=== PATIENT | male | born 1970 | race Caucasian/White ===

== ENCOUNTER 2020-02-02 14:14 | Emergency (ER) | payer OTHER, SELFPAY ==
[2020-02-02 14:16] VITALS: BP 147/96; PULSE 70; RESP 18; TEMP 36.7; O2SAT 97; BMI 26.4
--- NOTE | 2020-02-02 14:45 | RAD_ITS ---
STUDY: X-RAY - RIGHT HAND REASON FOR EXAM: Laceration from table saw over second metacarpal. TECHNIQUE: 3 view(s) of the hand. COMPARISON: None. FINDINGS: Normal radiocarpal articulation. Normal distal radioulnar joint. Normal visualized carpal bones. Normal carpal articulations Normal carpometacarpal articulation of the thumb. Normal second through fifth carpometacarpal joints. Normal metacarpi. Normal metacarpophalangeal joint of the thumb. Normal interphalangeal joint of the thumb. Normal proximal and distal phalanges of the thumb. Normal metacarpophalangeal joints of the second through fifth fingers. Normal proximal and distal interphalangeal joints of the second through fifth fingers. Normal phalanges of the second through fifth fingers. The soft tissue structures are unremarkable. RAD/Hand Min 3 Views IMPRESSION: Unremarkable x-ray examination of the right hand without demonstrated fracture or radiopaque foreign body. Electronically Signed: Abraham Cisneros MD at 15:21 EDT Tel , Service support ,
--- NOTE | 2020-02-02 14:46 | ED.VIS.GEN ---
History of Present Illness Chief Complaint: Laceration Informant: Patient Narrative: Patient is a 49-year-old male with a past medical history of hypertension who presents to the emergency department for right hand laceration. He was using a table saw whenever he believes that a piece a wood kicked back and caught his dorsal right hand. The laceration is over the dorsal hand close to his right index finger. Bleeding is controlled prior to arrival in the emergency department. He denies any loss of sensation. No difficulty moving his fingers. No other injury during the event. He does not know when his last tetanus shot was and will update now currently. He is not on any anticoagulation. He has no foreign body sensation in the hand/finger. Patient does write with his left hand but uses his right hand dominantly otherwise. Past Medical History - Allergies and Home Meds Allergies/Adverse Reactions: Allergies No Known Allergies Allergy (Verified 02/02/20 14:18) Primary Care Physician: Corrie Ray NP-C [Primary Care Provider] - Prior records reviewed: Yes Past Medical History: - - Hypertension Surgical History: no surgical history Smoking Status: Never smoker Review of Systems All systems negative except as indicated General: Denies: Chills, Fever, Sweats Cardiovascular: Denies: Chest pain, Palpitations Respiratory: Denies: Dyspnea, Dyspnea on exertion Gastrointestinal: Denies: Abdominal pain, Nausea, Vomiting Musculoskeletal: Denies: Back pain, Extremity Pain Skin: Reports: Wounds - Right hand. Denies: Rash Neurological: Denies: Weakness, Numbness Physical Exam Vital Signs/Narrative: Vital Signs Temp Pulse Resp BP Pulse Ox 02/02/20 14:16 98.1 F 70 18 147/96 H 97 Inital Vital Signs reviewed: Yes General: Well nourished, Well developed Head: Normocephalic, Atraumatic Eyes: Perrl, EOMI ENT: Moist mucous membranes Neck: Supple Cardiovascular: Regular rate, Regular rhythm Respiratory: No distress, CTA bilaterally Abdomen: Soft, Nondistended Skin: Trauma - 5.5 cm laceration to dorsal right hand/index finger. No foreign bodies appreciated. Full active range of motion. Good capillary refill. Sensation intact. Neurological: Alert, Oriented x3, Normal Strength, Normal Sensation Psychological: Normal affect, Normal Mood Diagnostic/Tx/Re-eval - Medical Decision Making Patient presents to the emergency department after sustaining a laceration to the right hand. Will obtain x-ray to evaluate for foreign body/osseous involvement. Patient updated on tetanus while in the emergency department. Will repair with sutures. Procedures Procedure(s): Serration repair: After washing hands sterile gloves were utilized. Wound was cleaned using normal saline and soap. Patient draped in sterile fashion. Wound explored and no foreign bodies appreciated. Area was anesthetized using 1% 5ml lidocaine. Using 5-0 Ethilon 10 interrupted simple sutures were placed. This did come together close. Wound was dressed with antibiotic ointment, nonadherent bandage and wrapped. Patient tolerated procedure well without any complication. ED Disposition - Plan for ED Patient: Disposition: Home or Assisted Living Diagnosis: Hand laceration Instructions: ED Laceration All Closures Referrals: Corrie Ray [employer] [Primary Care Provider] - 5-7 Days Additional Instructions: Need suture removed in 7 to 10 days. Please monitor for signs of infection.
[2020-02-02] MEDS: Diphth,Pertuss(Acell),Tet Vac 0.5 ML Vial IM (14:57)
== END 2020-02-02 16:23 | disposition home or self-care (01) ==
PROVIDERS: Emergency Provider Emergency Medicine; PCP Nurse Practitioner
DX: S61.411A Laceration without foreign body of right hand, initial encounter (principal); Z23 Encounter for immunization; I10 Essential (primary) hypertension; Z79.899 Other long term (current) drug therapy; W26.8XXA Contact with other sharp object(s), not elsewhere classified, initial encounter; Y93.89 Activity, other specified; Y92.89 Other specified places as the place of occurrence of the external cause; Y99.8 Other external cause status
CPT/HCPCS: 12002; 73130; 90715; 99283

== ENCOUNTER → 2020-10-11 07:41 | Outpatient (CLI) | payer OTHER, SELFPAY ==
--- NOTE | 2020-10-11 07:51 | US_ITS ---
STUDY: RENAL ULTRASOUND - COMPLETE REASON FOR EXAM: Male, 49 years old. CKD STAGE G3A/A1,GFR 45-59 AND ALBUMIN CREATINE RATION and lt;30 MG TECHNIQUE: Ultrasound evaluation of the kidneys was performed with real-time and static amezquita-scale imaging. COMPARISON: None. FINDINGS: RIGHT KIDNEY: Normal location of the right kidney, which is normal in size. The right kidney measures 10.7 cm. There is a normal cortex of the right kidney. The renal cortex measures 1 cm. There is no right renal mass or cyst. There are no right renal calculi. There is no right hydronephrosis. DISTAL RIGHT URETER: There is non-visualization of the distal right ureter. There is no demonstrated right ureterovesical junction calculus. There is a visualized right ureteral jet. LEFT KIDNEY: Normal location of the left kidney, which is normal in size. The left kidney measures 12.2 cm. There is a normal cortex of the left kidney. The renal cortex measures 1.4 cm. There is no left renal mass or cyst. There are no left renal calculi. Mild dilatation of the left renal calyces. DISTAL LEFT URETER: There is non-visualization of the distal left ureter. There is no demonstrated left ureterovesical junction calculus. There is a visualized left ureteral jet. BLADDER: The distended urinary bladder has a volume of 197 ml. There is a normal wall thickness of the distended urinary bladder. There is no demonstrated mass within the urinary bladder. There are no demonstrated bladder calculi. US/Kidney and Bladder IMPRESSION: Mild dilatation of the left renal calyces. Normal ultrasound of the urinary bladder. Electronically Signed: Ann-Marie Mcdonald MD at 10:36 EST Tel , Service support ,
== END ==
PROVIDERS: PCP Nurse Practitioner; Referring Provider Nurse Practitioner; Visit Provider Nurse Practitioner
DX: N18.31 Chronic kidney disease, stage 3a (principal)
CPT/HCPCS: 76770

== ENCOUNTER 2021-06-05 18:16 | Inpatient (IN) | payer OTHER, SELFPAY ==
[2021-06-05] VITALS (7 sets, daily range): BP systolic 118–138; BP diastolic 72–87; PULSE 69–87; RESP 16–26; TEMP 35.8–37; O2SAT 92–95; BMI 25.0
--- NOTE | 2021-06-05 18:39 | EKG12_ITS ---
Test Reason : DYSRHYTHMIA Blood Pressure : / mmHG Vent. Rate : 076 BPM Atrial Rate : 076 BPM P-R Int : 150 ms QRS Dur : 096 ms QT Int : 388 ms P-R-T Axes : 039 -06 -09 degrees QTc Int : 436 ms Normal sinus rhythm Normal ECG Confirmed by ROCKY ALLEN, VIRA ([id number]), school photograph editor SHAMAR AGUILERA ([id number]) on 06/10/2021 10:05:53 A M Referred By: MESHA Confirmed By:CR HIDALGO MD
[2021-06-05 18:50] LABS: Absolute Lymphocyte Count 71.77 X10^3/uL (0.83-4.51); Absolute Neutrophil Count 2.4 X10^3/uL (2.0-7.7); Basophil# 0.03 X10^3/uL; Hematocrit 38.4 % (40-54); Hemoglobin 12.4 g/dL (13.0-16.5); Lymphocyte # 71.77 X10^3/ul (0.83-4.51); Lymphocyte % 74.7 % (19-41); Mean Corp Hgb Conc 32.3 g/dL (32-36); Mean Corpuscular Hgb 33.2 pg (27.0-32.0); Mean Corpuscular Volume 102.9 fL (80-94); Monocyte# 21.69 X10^3/uL; Monocyte% 22.6 % (0-10); NRBC Flagged by Analyzer 0 % (0-5); Neutrophil # 2.42 X10^3/uL (2.7-7.7); Neutrophil % 2.5 % (47-70); POSITIVE COUNT YES; POSITIVE DIFFERENTIAL YES; POSITIVE MORPHOLOGY YES; Platelet Count 271 K/mm3 (150-450); RBC Distribution Width CV 12.8 % (11.6-14.6); RBC Distribution Width SD 48.3 fl (35.1-43.9); Red Blood Count 3.73 M/mm3 (4.6-6.2)
[2021-06-05 19:00] LABS: Differential Indicated SCAN CRITERIA MET; White Blood Count 96.1 K/mm3 (4.4-11.0)
[2021-06-05 19:10] LABS: Procalcitonin 0.58 ng/mL (0.00-0.09)
[2021-06-05 19:14] LABS: Lactic Acid 1.9 mmol/L (0.4-1.9)
[2021-06-05 19:15] LABS: Fibrinogen > 900 mg/dl (203-444)
[2021-06-05 19:16] LABS: ALB/GLOB Ratio 0.6 RATIO (0.9-2.4); AST(SGOT) 376 U/L (15-37); Alanine Aminotransfer ALT/SGPT 567 U/L (16-61); Albumin, Serum 2.9 g/dL (3.2-5.0); Alkaline Phosphatase 114 U/L (45-117); Anion Gap 8 (5-15); BUN 24 mg/dL (7-18); BUN/Creat Ratio 21.1 RATIO (10-20); CPK Total, Creatine Kinase 118 U/L (39-308); Calcium,Total 9.4 mg/dL (8.5-10.1); Chloride 88 mmol/L (98-107); Creatinine, Serum 1.14 mg/dL (0.70-1.30); EST Glomerular Filtration Rate 72 mL/min (>60); Est Glom Filt Rate - Afr Amer 87 mL/min (>60); Estimated Creatinine Clearance 74.17 ml/min; Globulin 5.1 g/dL (2.2-4.2); Glucose 262 mg/dL (74-106); LDH 528 U/L (87-241); Potassium 4.1 mmol/L (3.5-5.1); Sodium Level 125 mmol/L (136-145); Troponin-I HS 5 pg/mL (3.0-78.0)
[2021-06-05 19:33] LABS: Differential Comment SCANNED
[2021-06-05 19:34] LABS: D-Dimer Quantitative (DVT/PE) 1.59 FEU/ug/m (0.27-0.49)
--- NOTE | 2021-06-05 19:36 | EDS_ITS ---
HPI History of Present Illness Chief Complaint: Shortness of Breath Informant: patient and spouse/S.O. Narrative Narrative: Patient is a 50-year-old male with history of CLL and hypertension as well as recent diagnosis of Covid 19 infection presenting with worsening malaise and shortness of breath. Patient started having symptoms on May 24. He took home test 1 week ago which was positive. He is continued to have fevers daily up to 103.7. 5 days ago he had a syncopal episode and busted his lip and chipped his tooth. Yesterday he developed a worsening cough and took Delsym. His PCP recently prescribed him Decadron. He denies any chest pain or current nausea or vomiting. He continued to feel worse today and now short of breath so he came to the emergency room. Patient was 85% on room air upon arrival. He does not wear home oxygen. He did not receive monoclonal antibody and did not have a Covid vaccine. [facility] Medical History (Updated 06/05/21 @ 23:[address] Daylin Keen, DO) CLL (chronic lymphocytic leukemia) HTN (hypertension) Home Medications hydrochlorothiazide 12.5 mg PO DAILY 02/02/20 [History Last Taken 02/02/20] losartan 100 mg PO DAILY 02/02/20 [History Last Taken 02/02/20] metoprolol succinate 100 mg PO DAILY 02/02/20 [History Last Taken 02/02/20] Allergy/AdvReac Type Severity Reaction Status Date / Time No Known Allergies Allergy Verified 06/05/21 18:16 Social History Smoking Status: Never smoker [facility] ED Constitutional Constitutional ED: Reports chills and fever(s) Eyes Eyes: Denies change in vision ENT ENT ED: Denies ear pain or sore throat Cardiovascular Cardiovascular: Reports other Details: Syncope ; Denies chest pain Respiratory/Chest Respiratory/Chest: Reports cough, dyspnea and dyspnea on exertion Gastrointestinal Gastrointestinal: Reports nausea; Denies abdominal pain, diarrhea or vomiting Musculoskeletal Musculoskeletal: Reports myalgias; Denies arthralgias Integumentary Denies rash Neurologic Neurologic: Reports headache(s) and weakness; Denies paresthesias Psychiatric Psychiatric: Denies depression EXAM Physical Exam Const Vital Signs: 06/05/21 18:16 06/05/21 19:08 06/05/21 19:52 Temperature 96.5 F L 96.5 F L Temperature Source Temporal Temporal Pulse Rate 87 74 Respiratory Rate 16 16 Respiratory Effort Short of Breath Labored Respiratory Depth Normal Respiratory Pattern Normal Blood Pressure 126/87 H 138/85 H Blood Pressure Mean 100 102 Pulse Ox 92 93 Oxygen Delivery Method Nasal Cannula Nasal Cannula Nasal Cannula Oxygen Flow Rate (L/min) 2 2 2 06/05/21 21:11 Temperature Temperature Source Pulse Rate 70 Respiratory Rate 18 Respiratory Effort Respiratory Depth Respiratory Pattern Blood Pressure 124/78 H Blood Pressure Mean 93 Pulse Ox 94 Oxygen Delivery Method Nasal Cannula Oxygen Flow Rate (L/min) 2 Positive well nourished and well developed General Appearance ED: well developed HEENT Reports moist mucous membranes atraumatic Eyes PERRL and EOMs intact bilaterally Neck no lymphadenopathy, supple and no meningeal signs Resp Resp Narrative: Coarse breath sounds at the bases and the left upper lung Auscultation: diminished lung sounds Cardio regular rate, regular rhythm and no murmurs GI non-tender and non-distended Palpation: soft Extremity normal to inspection General Extremety ED: Negative for edema or tenderness General Extremity: Negative for edema Neuro oriented x3 and no sensory deficits noted Sensorium / Orientation: alert Motor Exam: strength 5/5 throughout Psych mental status grossly normal Skin no wounds Lesions: no lesions Rashes: no rashes MDM MDM MDM Narrative Medical decision making narrative: Patient evaluated for increased shortness of breath as well as continued fever and fatigue in the setting of a positive home Covid test. Patient has symptoms now for 13 days. In the ER patient is 85% on room air and on 2 L when he ambulates he goes down to 88%. He does feel better on supplemental oxygen. He is already been prescribed Decadron through his PCP. He did not receive monoclonal antibody. He is found to have hyponatremia with sodium of 125. He started on gentle IV fluid fluid hydration. Inflammatory markers are all significantly elevated in addition patient has a significant leukocytosis of 96.1. This is fitting with his history of CLL. Patient does not recall what his white blood cell count normally is. CTA is consistent with bilateral pneumonia and favors bacterial etiology. His procalcitonin is only mildly elevated at 0.53. Patient will be admitted and antibiotics determined by admitting physician. Patient is admitted to the medical floor in hemodyn amically stable. Lab Data Attestation: I reviewed the patient's lab results. Labs: Laboratory Results - last 24 hr 06/05/21 06/05/21 06/05/21 18:25 18:25 18:25 WBC RBC Hgb Hct MCV MCH MCHC RDW Std Deviation RDW Coeff of Aleksandar Plt Count MPV Immature Gran % (Auto) Neut % (Auto) Lymph % (Auto) [place] % (Auto) Eos % (Auto) Baso % (Auto) Absolute Neuts (auto) Absolute Lymphs (auto) Nucleated RBC % Differential Comment Diff Path Review Fibrinogen > 900 H D-Dimer Quant (PE/DVT) 1.59 H* Sodium 125 L Potassium 4.1 Chloride 88 L Carbon Dioxide 29.0 Anion Gap 8 BUN 24 H Creatinine 1.14 Estim Creat Clear Calc 74.17 Est GFR (MDRD) Af Amer 87 Est GFR (MDRD) Non-Af 72 BUN/Creatinine Ratio 21.1 H Glucose 262 H Lactic Acid Calcium 9.4 Total Bilirubin 0.90 AST 376 H ALT 567 H Alkaline Phosphatase 114 Lactate Dehydrogenase 528 H Total Creatine Kinase 118 Troponin I High Sens 5 C-React Prot Ext Range 244.00 H B-Natriuretic Peptide 58.3 Total Protein 8.0 Albumin 2.9 L Globulin 5.1 H Albumin/Globulin Ratio 0.6 L Procalcitonin 06/05/21 06/05/21 06/05/21 18:25 18:25 18:25 WBC 96.1 H* RBC 3.73 L Hgb 12.4 L Hct 38.4 L MCV 102.9 H MCH 33.2 H MCHC 32.3 RDW Std Deviation 48.3 H RDW Coeff of Aleksandar 12.8 Plt Count 271 MPV 10.0 Immature Gran % (Auto) 0.200 Neut % (Auto) 2.5 L Lymph % (Auto) 74.7 H [place] % (Auto) 22.6 H Eos % (Auto) 0.0 Baso % (Auto) 0.0 Absolute Neuts (auto) 2.4 Absolute Lymphs (auto) 71.77 H Nucleated RBC % 0 Differential Comment SCANNED Diff Path Review May foll Fibrinogen D-Dimer Quant (PE/DVT) Sodium Potassium Chloride Carbon Dioxide Anion Gap BUN Creatinine Estim Creat Clear Calc Est GFR (MDRD) Af Amer Est GFR (MDRD) Non-Af BUN/Creatinine Ratio Glucose Lactic Acid 1.9 Calcium Total Bilirubin AST ALT Alkaline Phosphatase Lactate Dehydrogenase Total Creatine Kinase Troponin I High Sens C-React Prot Ext Range B-Natriuretic Peptide Total Protein Albumin Globulin Albumin/Globulin Ratio Procalcitonin 0.58 H Radiography Chest X-Ray - ED: 1 View, Read by ED Physician, Read by Radiologist and - (Multifocal infiltrate) Diagnostic Testing: Clinical Impression(s) from Imaging Studies Chest X-Ray 06/05/21 19:51 IMPRESSION: Bilateral hazy opacities consistent with pneumonia. Electronically Signed: Virginia Jewell MD at 21:20 EDT Tel , Service support , Chest CTA 06/05/21 20:03 IMPRESSION: 1. Bilateral pneumonia. Typical bacterial pneumonia is favored. 2. Mediastinal and hilar adenopathy, likely reactive. 3. No pulmonary embolus or aortic dissection. Electronically Signed: Virginia Jewell MD at 22:43 EDT Tel , Service support , Rhythm Strip Rhythm Strip: Sinus Rhythm Rate: 76 Ectopy: None EKG Initial EKG: Attestation: I personally reviewed and interpreted this EKG as follows: Interpretation: Sinus Rhythm Comments: Normal sinus rhythm at a rate of 76 Normal Discharge Plan Triage Chief Complaint: Shortness of Breath ED Provider: Daylin Keen Dx/Rx/DC Orders Clinical Impression: COVID-19 virus infection, Hypoxia, Acute hyponatremia, Leukocytosis, Chronic lymphocytic leukemia Primary Care Provider: Corrie Ray NP Disposition Disposition: Acute Care [facility]
[2021-06-05 19:41] LABS: BNP,B-Type NATRIURETIC PEPTIDE 58.3 pg/mL (0-100)
--- NOTE | 2021-06-05 19:51 | RAD_ITS ---
STUDY: X-RAY CHEST REASON FOR EXAM: Male, 50 years old. cough TECHNIQUE: Single AP portable view of the chest. COMPARISON: None. FINDINGS: No pleural effusion. Mild hazy pulmonary opacities in the lungs bilaterally consistent with pneumonia. Normal size heart. Normal mediastinum and milton. Normal visualized pulmonary arteries. Normal visualized aortic arch and descending thoracic aorta. Normal visualized thoracic spine. Normal visualized ribs, clavicles, and shoulders. There is no demonstrated abnormality of the visualized soft tissue structures of the upper abdomen. RAD/Chest 1 View (Portable) IMPRESSION: Bilateral hazy opacities consistent with pneumonia. Electronically Signed: Virginia Jewell MD at 21:20 EDT Tel , Service support ,
--- NOTE | 2021-06-05 20:03 | CT_ITS ---
EXAM: CT ANGIOGRAPHY CHEST WITHOUT AND WITH INTRAVENOUS CONTRAST CLINICAL INDICATION: hypoxia, elevated dimer, + covid TECHNIQUE: Helically acquired angiography images were obtained of the chest without and with intravenous contrast. This CT exam was performed using one or more of the following dose reduction techniques: automated exposure control, adjustment of the mA and/or kV according to patient size, and/or use of iterative reconstruction technique. This report was created using [employer] report generation technology. MIP reconstructed images were created and reviewed. CONTRAST: IV 75mL [id number] COMPARISON: None. FINDINGS: PULMONARY ARTERIES: Unremarkable. Normal in caliber. No evidence of pulmonary embolism. AORTA: Unremarkable. Normal in caliber. No evidence of dissection. GREAT VESSELS OF AORTIC ARCH: Unremarkable. Normal in caliber. No evidence of dissection. LUNGS AND PLEURAL SPACES: Bilateral lower lobe consolidation consistent with pneumonia. Moderately extensive ground glass opacities in the upper lobes consistent with pneumonia. No mass. No pleural effusion or thickening. HEART: Unremarkable. Heart size is normal. No pericardial effusion. No signs of right heart strain, ratio of right ventricle to left ventricle measures less than 1. MEDIASTINUM: See below. THYROID: Unremarkable. No thyroid lesions. BONES/JOINTS: Unremarkable. No suspicious lytic or blastic abnormality. LYMPH NODES: Mild mediastinal adenopathy. Mild to moderate hilar adenopathy, greater on the right. CT/CTA Chest W/WO Contrast IMPRESSION: 1. Bilateral pneumonia. Typical bacterial pneumonia is favored. 2. Mediastinal and hilar adenopathy, likely reactive. 3. No pulmonary embolus or aortic dissection. Electronically Signed: Virginia Jewell MD at 22:43 EDT Tel , Service support ,
[2021-06-05] MEDS: 0.9% Normal Saline 1,000 ML 150 ML IV (22:57)
--- NOTE | 2021-06-05 23:38 | HP.PCM.HOS_ITS ---
[facility] - General General Date of Admission: 06/05/21 Date of Service: 06/05/21 Chief Complaint: shortness of breath. HPI Narrative YOSSI HESS, is a 50 M who presents with shortness of breath. Patient has been sick since the according to his . Has been having fevers. 3 days ago was started on dexamethasone and has taken 3 doses. Presented here where he was hypoxic requiring oxygen. CAT scan performed that showed groundglass opacities but also bibasilar infiltrates. [facility] Medical History CLL (chronic lymphocytic leukemia) HTN (hypertension) Home Medications hydrochlorothiazide 12.5 mg PO DAILY 02/02/20 [History Last Taken 02/02/20] losartan 100 mg PO DAILY 02/02/20 [History Last Taken 02/02/20] metoprolol succinate 100 mg PO DAILY 02/02/20 [History Last Taken 02/02/20] Allergy/AdvReac Type Severity Reaction Status Date / Time No Known Allergies Allergy Verified 06/05/21 18:16 Family History (Updated 06/05/21 @ 23:[address] Bob Rao DO) Other CLL (chronic lymphocytic leukemia) Social History (Updated 06/05/21 @ 23:[address] Bob Rao DO) Smoking Status: Never smoker alcohol intake: current alcohol intake frequency: a few times a month ROS ROS Narrative Anosmia, dysgeusia, cough. Patient has syncopal event the other day. All review of systems were negative except as mentioned above in the history of present illness and the other review of systems. Vital Signs Vital Signs Vital Signs: 06/05/21 18:16 06/05/21 19:08 06/05/21 19:52 Temperature 35.8 C L 35.8 C L Temperature Source Temporal Temporal Pulse Rate 87 74 Respiratory Rate 16 16 Respiratory Effort Short of Breath Labored Respiratory Depth Normal Respiratory Pattern Normal Blood Pressure 126/87 H 138/85 H Blood Pressure Mean 100 102 Pulse Ox 92 93 Oxygen Delivery Method Nasal Cannula Nasal Cannula Nasal Cannula Oxygen Flow Rate (L/min) 2 2 2 06/05/21 21:11 06/05/21 23:08 Temperature 37.0 C Temperature Source Temporal Pulse Rate 70 79 Respiratory Rate 18 18 Respiratory Effort Respiratory Depth Respiratory Pattern Blood Pressure 124/78 H 129/73 H Blood Pressure Mean 93 91 Pulse Ox 94 93 Oxygen Delivery Method Nasal Cannula Nasal Cannula Oxygen Flow Rate (L/min) 2 2 Weight Weight: 74.843 kg Body Mass Index (BMI) 25.0 Physical Exam Const alert General Appearance: cooperative HEENT normocephalic and head/scalp atraumatic Eyes Eyes Narrative: No icterus Neck no lymphadenopathy and no JVD Resp normal respiratory effort Resp Narrative: Bibasilar crackles Cardio regular rate, regular rhythm, S1 normal heart sound and S2 normal heart sound GI normal to inspection, nondistended, normoactive bowel sounds, soft to palpation, non-tender and non-distended Extremity normal to inspection Skin no rashes or lesions noted and no wounds Neuro Sensorium / Orientation: awake and alert Psych affect normal Results Lab / Micro Data Attestation: I reviewed the patient's lab results. Result Diagrams: 06/05/21 18:25 06/05/21 18:25 Labs: Laboratory Results - last 24 hr 06/05/21 18:25: Fibrinogen > 900 H, D-Dimer Quant (PE/DVT) 1.59 H* 06/05/21 18:25: Sodium 125 L, Potassium 4.1, Chloride 88 L, Carbon Dioxide 29.0, Anion Gap 8, BUN 24 H, Creatinine 1.14, Estim Creat Clear Calc 74.17, Est GFR (MDRD) Af Amer 87, Est GFR (MDRD) Non-Af 72, BUN/Creatinine Ratio 21.1 H, Glucose 262 H, Calcium 9.4, Total Bilirubin 0.90, AST 376 H, ALT 567 H, Alkaline Phosphatase 114, Lactate Dehydrogenase 528 H, Total Creatine Kinase 118, Troponin I High Sens 5, C-React Prot Ext Range 244.00 H, Total Protein 8.0, Albumin 2.9 L, Globulin 5.1 H, Albumin/Globulin Ratio 0.6 L 06/05/21 18:25: B-Natriuretic Peptide 58.3 06/05/21 18:25: Procalcitonin 0.58 H 06/05/21 18:25: WBC 96.1 H*, RBC 3.73 L, Hgb 12.4 L, Hct 38.4 L, MCV 102.9 H, MCH 33.2 H, MCHC 32.3, RDW Std Deviation 48.3 H, RDW Coeff of Aleksandar 12.8, Plt Count 271, MPV 10.0, Immature Gran % (Auto) 0.200, Neut % (Auto) 2.5 L, Lymph % (Auto) 74.7 H, [place] % (Auto) 22.6 H, Eos % (Auto) 0.0, Baso % (Auto) 0.0, Absolute Neuts (auto) 2.4, Absolute Lymphs (auto) 71.77 H, Nucleated RBC % 0, Differential Comment SCANNED, Diff Path Review December06/05/21 18:25: Lactic Acid 1.9 Rhythm Strip Rhythm Strip: Sinus Rhythm Rate: 76 Ectopy: None Radiology Impression Chest X-Ray 06/05/21 19:51 IMPRESSION: Bilateral hazy opacities consistent with pneumonia. Electronically Signed: Virginia Jewell MD at 21:20 EDT Tel , Service support , Chest CTA 06/05/21 20:03 IMPRESSION: 1. Bilateral pneumonia. Typical bacterial pneumonia is favored. 2. Mediastinal and hilar adenopathy, likely reactive. 3. No pulmonary embolus or aortic dissection. Electronically Signed: Virginia Jewell MD at 22:43 EDT Tel , Service support , Assessment & Plan Assessment/Plan (1) Acute respiratory failure with hypoxia: (2) Streptococcal pneumonia: (3) COVID-19 virus infection: (4) Acute hyponatremia: PLAN: 1. Acute hypoxic respiratory failure * Secondary to Covid but also may be related with an underlying bacterial infection * Wean oxygen as able. Patient may require home oxygen upon discharge 2. Possible pneumococcal pneumonia * Could be secondary due to his COVID-19 * Check blood cultures, sputum culture, respiratory panel, strep and Legionella antigens * Pulmonary toilet * Antibiotics with ceftriaxone and azithromycin. Consider discontinuation if bacterial work-up is negative 3. COVID-19 pneumonia, acute * Unvaccinated onset was May 25, patient will need to quarantine through June 13 * Patient had been started on dexamethasone and has received 3 doses thus far, will continue with the 6 mg of dexamethasone for 7 more days cleared 10-day course * Out of the window for remdesivir * Not a candidate for baricitinib 4. Hyponatremia * Asymptomatic * Likely due to HCTZ which will be held * Patient did receive IV fluids in the emergency room. But with him having COVID-19 and respiratory failure, will hold off on additional fluids at this time. * Monitor 5. Hypertension * Hold HCTZ * Continue with losartan and metoprolol succinate 6. CLL * Not undergoing treatment * Follow-up with Dr. Solomon 7. VTE prophylaxis with low molecular heparin Discussed with patient's at bedside. She is aware that while patient is in isolation, there will be no visitors on the floor. Charges/Coding Visit Charges Inpatient E&M: 61877 Init Hosp L3
[2021-06-06] VITALS (9 sets, daily range): BP systolic 111–143; BP diastolic 66–78; PULSE 61–95; RESP 18–20; TEMP 36–38.3; O2SAT 92–97; BMI 23.6
--- NOTE | 2021-06-06 04:21 | NURSING ---
called lab, noted urine sample sent for legionella and strep pneumoniae is not seen in process yet. RN just want to check if they received the sample. Hebert from lab states they have it.
[2021-06-06 06:48] LABS: Absolute Lymphocyte Count 72.54 X10^3/uL (0.83-4.51); Absolute Neutrophil Count 2.3 X10^3/uL (2.0-7.7); Basophil# 0.07 X10^3/uL; Basophil% 0.1 % (0-1); Hematocrit 33.5 % (40-54); Hemoglobin 11.2 g/dL (13.0-16.5); Lymphocyte # 72.54 X10^3/ul (0.83-4.51); Lymphocyte % 75.9 % (19-41); Mean Corp Hgb Conc 33.4 g/dL (32-36); Mean Corpuscular Hgb 34.5 pg (27.0-32.0); Mean Corpuscular Volume 103.1 fL (80-94); Mean Platelet Vol. 9.5 fl (6.2-12.0); Monocyte% 21.5 % (0-10); NRBC Flagged by Analyzer 0 % (0-5); Neutrophil # 2.25 X10^3/uL (2.7-7.7); Neutrophil % 2.3 % (47-70); POSITIVE COUNT YES; POSITIVE DIFFERENTIAL YES; POSITIVE MORPHOLOGY YES; Platelet Count 281 K/mm3 (150-450); RBC Distribution Width CV 13.1 % (11.6-14.6); RBC Distribution Width SD 49.1 fl (35.1-43.9); Red Blood Count 3.25 M/mm3 (4.6-6.2); White Blood Count 95.6 K/mm3 (4.4-11.0)
[2021-06-06 06:56] LABS: Differential Indicated SCAN CRITERIA MET
--- NOTE | 2021-06-06 07:08 | PN.HOSP_ITS ---
Subjective Subjective Patient was admitted after fall and syncope of short duration. He said he does not have cardiopulmonary disease but started having Covid symptoms mainly muscle aches generalized weakness about 10 days ago and started having fever for 1 week and then shortness of breath for the last 3 to 4 days. He states he fell down and passed out probably due to Covid pneumonia and dyspnea. Patient has history of CLL and I talked to Dr. Solomon Objective Data Objective Data Vital Signs: Vital Signs Temp Pulse Resp BP Pulse Ox 98.9 F 74 18 143/69 H 93 06/06/21 05:40 06/06/21 05:40 06/06/21 05:40 06/06/21 05:40 06/06/21 05:40 Oxygen Flow Rate (L/min) 2 Oxygen Delivery Method Nasal Cannula Weight: 155 lb 10.342 oz Body Mass Index (BMI) 23.6 Intake & Output: Intake and Output for Last 24 Hours 06/04/21 06/05/21 06/06/21 23:59 23:59 23:59 Intake Total 602.25 / 602.25 Balance 602.25 / 602.25 Lab / Micro Data Result Diagrams: 06/06/21 06:30 06/06/21 06:30 Labs: Laboratory Results - last 24 hr 06/05/21 18:25: Fibrinogen > 900 H, D-Dimer Quant (PE/DVT) 1.59 H* 06/05/21 18:25: Sodium 125 L, Potassium 4.1, Chloride 88 L, Carbon Dioxide 29.0, Anion Gap 8, BUN 24 H, Creatinine 1.14, Estim Creat Clear Calc 74.17, Est GFR (MDRD) Af Amer 87, Est GFR (MDRD) Non-Af 72, BUN/Creatinine Ratio 21.1 H, Glucose 262 H, Calcium 9.4, Total Bilirubin 0.90, AST 376 H, ALT 567 H, Alkaline Phosphatase 114, Lactate Dehydrogenase 528 H, Total Creatine Kinase 118, [place] High Sens 5, C-React Prot Ext Range 244.00 H, Total Protein 8.0, Albumin 2.9 L, Globulin 5.1 H, Albumin/Globulin Ratio 0.6 L 06/05/21 18:25: B-Natriuretic Peptide 58.3 06/05/21 18:25: Procalcitonin 0.58 H 06/05/21 18:25: WBC 96.1 H*, RBC 3.73 L, Hgb 12.4 L, Hct 38.4 L, MCV 102.9 H, MCH 33.2 H, MCHC 32.3, RDW Std Deviation 48.3 H, RDW Coeff of Aleksandar 12.8, Plt Count 271, MPV 10.0, Immature Gran % (Auto) 0.200, Neut % (Auto) 2.5 L, Lymph % (Auto) 74.7 H, [place] % (Auto) 22.6 H, Eos % (Auto) 0.0, Baso % (Auto) 0.0, Absolute Neuts (auto) 2.4, Absolute Lymphs (auto) 71.77 H, Nucleated RBC % 0, Differential Comment SCANNED, Diff Path Review December06/05/21 18:25: Lactic Acid 1.9 06/06/21 06:30: WBC 95.6 H*, RBC 3.25 L, Hgb 11.2 L, Hct 33.5 L, MCV 103.1 H, MCH 34.5 H, MCHC 33.4, RDW Std Deviation 49.1 H, RDW Coeff of Aleksandar 13.1, Plt Count 281, MPV 9.5, Immature Gran % (Auto) 0.200, Neut % (Auto) 2.3 L, Lymph % (Auto) 75.9 H, [place] % (Auto) 21.5 H, Eos % (Auto) 0.0, Baso % (Auto) 0.1, Absolute Neuts (auto) 2.3, Absolute Lymphs (auto) 72.54 H, Nucleated RBC % 0, Diff Path Review December Micro: Microbiology 06/06/21 02:05 Mucosa - Nasopharyngeal Respiratory Panel (PCR) - Final Radiography Diagnostic Testing: Radiology Impression Chest X-Ray 06/05/21 19:51 IMPRESSION: Bilateral hazy opacities consistent with pneumonia. Electronically Signed: Virginia Jewell MD at 21:20 EDT Tel , Service support , Chest CTA 06/05/21 20:03 IMPRESSION: 1. Bilateral pneumonia. Typical bacterial pneumonia is favored. 2. Mediastinal and hilar adenopathy, likely reactive. 3. No pulmonary embolus or aortic dissection. Electronically Signed: Virginia Jewell MD at 22:43 EDT Tel , Service support , Rhythm Strip Rhythm Strip: Sinus Rhythm Rate: 76 Ectopy: None Physical Exam Narrative General: Alert, Oriented x3, Cooperative HEENT: Atraumatic, PERRLA, EOMI, Normocephalic Oral: Mild bruise over upper lip. No active bleeding. No Gingival or Mucosal Lesions/ Ulcerations Neck: Supple, No JVD, Negative Carotid Bruits Lungs: Air entry diminished in bilateral lung bases. Dyspnea at rest. Hypoxic Cardiovascular: Regular rate, Regular Rhythm, Normal S1, Normal S2, No murmurs Abdomen: Bowel Sounds Present, Soft, Non Tender, Non-Distended : No renal angle tenderness. No suprapubic tenderness. Extremities: No edema, Capillary Refill Less than 3 Seconds Skin: No rashes, No breakdown Musculoskeletal: No Tenderness to Palpation of Joints or Extremities Neurological: Cranial nerves II-XII grossly intact, DTR 2+/4 and Symmetrical, Neuro grossly intact Psych/Mental Status: Normal Affect, Appropriate. Assessment & Plan Assessment/Plan (1) Acute respiratory failure with hypoxia: (2) Streptococcal pneumonia: (3) COVID-19 virus infection: (4) Acute hyponatremia: PLAN: 1. Acute hypoxic respiratory failure due to bilateral COVID-19 pneumonia with bacterial superinfection Oxygen therapy. Ruthi text me that patient does not have evidence of Covid test therefore COVID-19 PCR ordered. 2. Possible pneumococcal pneumonia: Patient is on ceftriaxone and azithromycin. Urinary antigens are negative. Patient has fever 101 Fahrenheit. Azithromycin discontinued 3. COVID-19 pneumonia, acute: Patient is unvaccinated. His had vaccine. Patient had 3 days of dexamethasone before admission. Patient out of window for remdesivir. Does not seem to be candidate for baricitinib as patient has CLL immunocompromised and biologic will not be a good option. 4. Hyponatremia * Probably due to HCTZ. HCTZ on hold. * Patient did receive IV fluids in the emergency room. But with him having COVID-19 and respiratory failure, will hold off on additional fluids at this time. IV fluid normal saline 75 mill per hour. Patient is post to monitor fluid balance. 5. Hypertension * Hold HCTZ * Continue with losartan and metoprolol succinate 6. CLL * I talked to Dr. Solomon. He said his WC count was in 50,000s inmate 2020 but is slowly getting higher. Currently 95.6 thousand. ALC 72.54 thousand. ANC 2.[address] Solomon patient did not had any indication for CLL chemotherapy but looks like he might need after he recovers from COVID-19. Patient had refused flu vaccine in the past. His is vaccinated. Patient was distressed about need for vaccine as patient is immunocompromised and nonfunctional lymphocytes. Currently does not need any specific treatment for CLL in regard to COVID-19 infection. 7. VTE prophylaxis with low molecular heparin Total time of the visit including total time spent in counseling or coordination of care, (more than 50% of the total time, spent in obtaining medical information from nurses and other ancillary care providers,explaining to the patient about labs, imaging, diagnosis and management), discussion with consultants ID and oncologist Dr. Solomon, review of labs and imaging is 30 minutes. Charges/Coding Visit Charges Inpatient E&M: 48435 Subs Hosp L3
[2021-06-06 07:15] LABS: ALB/GLOB Ratio 0.5 RATIO (0.9-2.4); AST(SGOT) 172 U/L (15-37); Alanine Aminotransfer ALT/SGPT 432 U/L (16-61); Albumin, Serum 2.4 g/dL (3.2-5.0); Alkaline Phosphatase 95 U/L (45-117); Anion Gap 6 (5-15); BUN 22 mg/dL (7-18); BUN/Creat Ratio 22.1 RATIO (10-20); Calcium,Total 8.8 mg/dL (8.5-10.1); Chloride 94 mmol/L (98-107); EST Glomerular Filtration Rate 84 mL/min (>60); Est Glom Filt Rate - Afr Amer 102 mL/min (>60); Estimated Creatinine Clearance 84.55 ml/min; Globulin 4.5 g/dL (2.2-4.2); Glucose 145 mg/dL (74-106); Potassium 4.7 mmol/L (3.5-5.1); Protein, Total 6.9 g/dL (6.4-8.2); Sodium Level 131 mmol/L (136-145)
[2021-06-06] MEDS: Enoxaparin 40 MG/0.4 ML Syringe SC (09:44)
[2021-06-06] MEDS: dexAMETHasone 4 MG Tablet 6 MG PO (09:45)
[2021-06-06] MEDS: Doxazosin 4 MG Tablet PO (09:46)
[2021-06-06] MEDS: Metoprolol(XL)Succ 100 MG Tablet PO (09:46)
[2021-06-06] MEDS: guaiFENesin 1,200 MG Tablet 1200 MG PO ×2 (09:46→21:43)
[2021-06-06] MEDS: Losartan Potassium 100 MG Tablet PO (09:46)
[2021-06-06] MEDS: Acetaminophen 325 MG Tablet 650 MG PO (09:47)
--- NOTE | 2021-06-06 12:15 | CASEMGMT ---
GUILLERMO WHITMAN Assessment: Face to Face with pt for initial transition planning/care coordination assessment. RN J CARLOS introduced self and role at [facility], pt voices understanding and consents to assessment. Pt is A/O x4 and answers all questions appropriately at this time. Pt sitting up in bed with O2 on in no distress. Brought pt his lunch tray. Care providers, pharmacy, and demographics verified/updated. Admitting Dx: hypoxia, COVID, hyponatremia PCP: Corrie Ray DIRECTOR MARK[employer]EARCH Specialists: Neha onc Preferred Pharmacy: [facility] Insurance: MMO Prescription Benefit: yes LW/HPOA: Pt denies having a LW/DPOA and denies need for info regarding AD. LNOK: Heather Freeman, Living Arrangements: Pt lives with in a two story house with 1 step to enter. Pt reports he is I in ADL's and denies concerns at home. Transportation: Pt drives self and denies concerns with transportation. DME/HHC/SNF: Pt denies having any DME in the home, hx of HHC or SNF stays. Pt states he was first tested for COVID with a home test. He states his was not tested. He is able to quarantine from her using separate bedrooms but they only have one bathroom. Pt states he has family who can provide groceries and supplies to him. Provided pt with a local in network list of DME companies should pt need O2 at dc, pt has no preference. Pt states no concerns with going home at time of dc. Pt states no further concerns/needs. CM to follow. Advised pt to ask CM if any further question/concerns/needs arise, voices understanding. Pt Goal: Home Plan: Home with O2 if needed.
[2021-06-06] MEDS: 0.9% Saline Lock 10 ML Syringe IV (15:37)
[2021-06-06] MEDS: 0.9% Normal Saline 1,000 ML 75 ML IV (15:37)
[2021-06-06] MEDS: Atorvastatin Calcium 10 MG Tablet PO (21:43)
[2021-06-07] VITALS (12 sets, daily range): BP systolic 109–148; BP diastolic 52–84; PULSE 70–96; RESP 16–20; TEMP 36.8–39.2; O2SAT 90–98
[2021-06-07] MEDS: Acetaminophen 325 MG Tablet 650 MG PO (04:01)
[2021-06-07 09:31] LABS: Pathologist Review Reviewed
[2021-06-07 09:41] LABS: Pathologist Review Reviewed
[2021-06-07] MEDS: Metoprolol(XL)Succ 100 MG Tablet PO (10:20)
[2021-06-07] MEDS: dexAMETHasone 4 MG Tablet 6 MG PO (10:20)
[2021-06-07] MEDS: Losartan Potassium 100 MG Tablet PO (10:20)
[2021-06-07] MEDS: Doxazosin 4 MG Tablet PO (10:21)
[2021-06-07] MEDS: guaiFENesin 1,200 MG Tablet 1200 MG PO ×2 (10:21→23:01)
[2021-06-07] MEDS: Enoxaparin 40 MG/0.4 ML Syringe SC (10:21)
[2021-06-07] MEDS: 0.9% Saline Lock 10 ML Syringe IV ×2 (10:24→15:57)
[2021-06-07 12:09] LABS: Basophil# 0.07 X10^3/uL; Hematocrit 32.2 % (40-54); Hemoglobin 10.5 g/dL (13.0-16.5); Mean Corp Hgb Conc 32.6 g/dL (32-36); Mean Corpuscular Hgb 34.4 pg (27.0-32.0); Mean Corpuscular Volume 105.6 fL (80-94); Monocyte# 18.91 X10^3/uL; NRBC Flagged by Analyzer 0 % (0-5); POSITIVE COUNT YES; POSITIVE DIFFERENTIAL YES; POSITIVE MORPHOLOGY YES; Platelet Count 289 K/mm3 (150-450); RBC Distribution Width CV 13.3 % (11.6-14.6); RBC Distribution Width SD 51.2 fl (35.1-43.9); Red Blood Count 3.05 M/mm3 (4.6-6.2); White Blood Count 96.8 K/mm3 (4.4-11.0)
[2021-06-07 12:12] LABS: Differential Indicated SCAN CRITERIA MET
[2021-06-07 12:15] LABS: ALB/GLOB Ratio 0.5 RATIO (0.9-2.4); AST(SGOT) 116 U/L (15-37); Alanine Aminotransfer ALT/SGPT 400 U/L (16-61); Albumin, Serum 2.1 g/dL (3.2-5.0); Alkaline Phosphatase 94 U/L (45-117); Anion Gap 5 (5-15); BUN 23 mg/dL (7-18); BUN/Creat Ratio 24.4 RATIO (10-20); Calcium,Total 8.3 mg/dL (8.5-10.1); Chloride 97 mmol/L (98-107); Creatinine, Serum 0.94 mg/dL (0.70-1.30); EST Glomerular Filtration Rate 89 mL/min (>60); Est Glom Filt Rate - Afr Amer 108 mL/min (>60); Estimated Creatinine Clearance 89.95 ml/min; Globulin 4.4 g/dL (2.2-4.2); Glucose 223 mg/dL (74-106); Potassium 4.6 mmol/L (3.5-5.1); Protein, Total 6.5 g/dL (6.4-8.2); Sodium Level 132 mmol/L (136-145)
[2021-06-07 13:20] LABS: Blast 19 % (0-0); Lymphocyte 59 % (19-41); Monocyte 12 % (0-10); Myelocyte 5 % (0-0); Neutrophil-Segmented 5 % (47-70); Total Cells Counted 100 (MANUAL DIFF)
[2021-06-07 13:21] LABS: Macrocytosis 2+; Platelet Estimate ADEQUATE (ADEQ)
[2021-06-07 13:22] LABS: Red Cell Morphology N CHROM NORMAL (NORM C&C)
[2021-06-07 13:26] LABS: Neutrophil # 4.84 X10^3/uL (2.7-7.7)
[2021-06-07 13:27] LABS: Absolute Neutrophil Count 4.8 X10^3/uL (2.0-7.7)
[2021-06-07 13:28] LABS: Absolute Lymphocyte Count 57.11 X10^3/uL (0.83-4.51); Lymphocyte # 57.11 X10^3/ul (0.83-4.51)
[2021-06-07 13:29] LABS: Scan Smear per Review Criteria MANUAL DIFF
--- NOTE | 2021-06-07 14:42 | PN.HOSP_ITS ---
Subjective Subjective High-grade fever 102.5 Fahrenheit. Patient is on Arava. Patient respiratory status and hypoxia worsened. Discussed with the youth ministry director. Objective Data Objective Data Vital Signs: Vital Signs Temp Pulse Resp BP Pulse Ox 99.1 F 87 18 148/84 H 94 06/07/21 09:54 06/07/21 10:20 06/07/21 09:54 06/07/21 10:20 06/07/21 09:54 Oxygen Flow Rate (L/min) 25 Oxygen Delivery Method Airvo Weight: 155 lb 10.342 oz Body Mass Index (BMI) 23.6 Intake & Output: Intake and Output for Last 24 Hours 06/05/21 06/06/21 06/07/21 23:59 23:59 23:59 Intake Total 1452.25 / 1452.25 1400 / 1400 Output Total 850 / 850 Balance 1452.25 / 1452.25 550 / 550 Medical Nutrition Assessment Dietitian: Malnutrition Criteria Met Start: 06/06/21 10:19 Freq: Status: Active Protocol: Document 06/06/21 10:20 BP (Rec: 06/06/21 10:20 BP [id number]) Nutrition Malnutrition Evidence of Malnutrition Exists Yes Malnutrition (severe): Acute Illness/Injury Evidenced By Suboptimal Energy Intake ( Severe),Weight Loss (Severe) Clinical Problem Acute Disease or Injury Related Malnutrition Etiology Severe malnutrition in the context of Acute illness as evidenced by inadequate oral intake and weight loss due to signs/symptoms of COVID 19 Signs/Symptoms as evidenced by pt report consuming <50% energy intake x 1 1/2 weeks due to poor appetite, loss of sense of taste & smell, and 8% unintentional wt loss x 1 1/2 weeks. Status Active Problem Recommendation Dietitian Recommendations/Changes Continue Regular diet. Will provide 120 ml ensure enlive with meals and Magic cup w/ L&D for additional kristina/ protein if consumed. Lab / Micro Data Result Diagrams: 06/07/21 11:34 06/07/21 11:34 Labs: Laboratory Results - last 24 hr 06/05/21 18:25: Diff Path Review Reviewed 06/06/21 06:30: Diff Path Review Reviewed 06/06/21 15:10: COVID-19 (DEL) Detected 06/07/21 11:34: WBC 96.8 H*, RBC 3.05 L, Hgb 10.5 L, Hct 32.2 L, MCV 105.6 H, MCH 34.4 H, MCHC 32.6, RDW Std Deviation 51.2 H, RDW Coeff of Aleksandar 13.3, Plt Count 289, MPV 10.0, Immature Gran % (Auto) LAND APPRAISER, Neut % (Auto) LAND APPRAISER, Lymph % (Auto) LAND APPRAISER, [place] % (Auto) LAND APPRAISER, Eos % (Auto) LAND APPRAISER, Baso % (Auto) LAND APPRAISER, Absolute Neuts (auto) 4.8, Absolute Lymphs (auto) 57.11 H, Total Counted 100, Neutrophils % (Manual) 5 L, Lymphocytes % (Manual) 59 H, Monocytes % (Manual) 12 H, Myelocytes % 5 H, Blast Cells % 19 H*, Nucleated RBC % 0, Diff Path Review December, Platelet Estimate ADEQUATE, RBC Morphology N CHROM, Macrocytosis 2+ 06/07/21 11:34: Sodium 132 L, Potassium 4.6, Chloride 97 L, Carbon Dioxide 30.0, Anion Gap 5, BUN 23 H, Creatinine 0.94, Estim Creat Clear Calc 89.95, Est GFR (MDRD) Af Amer 108, Est GFR (MDRD) Non-Af 89, BUN/Creatinine Ratio 24.4 H, Glucose 223 H, Calcium 8.3 L, Total Bilirubin 0.90, AST 116 H, ALT 400 H, Alkaline Phosphatase 94, Total Protein 6.5, Albumin 2.1 L, Globulin 4.4 H, Albumin/Globulin Ratio 0.5 L Micro: Microbiology 06/06/21 10:00 Sputum, Expectorated/Coughed Gram Stain - Final 06/06/21 10:00 Sputum, Expectorated/Coughed Respiratory Culture - Preliminary GNR 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 No active bleeding. No Gingival or Mucosal Lesions/ Ulcerations Neck: Supple, No JVD, Negative Carotid Bruits Lungs: Air entry diminished in bilateral lung bases. Bilateral coarse crepitations. Dyspnea at rest. Severe hypoxia Cardiovascular: Regular rate, Regular Rhythm, Normal S1, Normal S2, No murmurs Abdomen: Bowel Sounds Present, Soft, Non Tender, Non-Distended : No renal angle tenderness. No suprapubic tenderness. Extremities: No edema, Capillary Refill Less than 3 Seconds Skin: No rashes, No breakdown Musculoskeletal: No Tenderness to Palpation of Joints or Extremities Neurological: Cranial nerves II-XII grossly intact, DTR 2+/4 and Symmetrical, Neuro grossly intact Psych/Mental Status: Normal Affect, Appropriate. Assessment & Plan Assessment/Plan (1) Acute respiratory failure with hypoxia: (2) Streptococcal pneumonia: (3) COVID-19 virus infection: (4) Acute hyponatremia: PLAN: 1. Acute hypoxic respiratory failure due to bilateral COVID-19 pneumonia with bacterial superinfection 06/07: Patient is on Airvo. I discussed with the patient regarding intubation ventilator if needed at last resort and he said he is okay with the ventilator as last resort but does not like to be intubated if it can be avoided. Talked with the youth ministry director. Currently on NIPPV. COVID-19 PCR positive. 2. Possible pneumococcal pneumonia: Patient is on ceftriaxone and azithromycin. Urinary antigens are negative. Patient has fever 101 Fahrenheit. Azithromycin discontinued 06/07: Sputum culture growing gram-negative rods lactose crown assembly machine set up mechanic and patient is having fever therefore will continue antibiotic. 3. COVID-19 pneumonia, acute: Patient is unvaccinated. His had vaccine. Patient had 3 days of dexamethasone before admission. Patient out of window for remdesivir. Does not seem to be candidate for baricitinib as patient has CLL immunocompromised and biologic will not be a good option. 04/07: Discussed with ID and currently does not seem to do anything different. 4. Hyponatremia * Probably due to HCTZ. HCTZ on hold. Sodium 132. Patient had IV fluid without significant improvement in serum sodium. 5. Hypertension * Hold HCTZ * Continue with losartan and metoprolol succinate 6. CLL * I talked to Dr. Solomon. He said his WC count was in 50,000s inmate 2020 but is slowly getting higher. Currently 95.6 thousand. ALC 72.54 thousand. ANC 2.[address] Solomon patient did not had any indication for CLL chemotherapy but looks like he might need after he recovers from COVID-19. Patient had refused flu vaccine in the past. His is vaccinated. Patient was distressed about need for vaccine as patient is immunocompromised and nonfunctional lymphocytes. Currently does not need any specific treatment for CLL in regard to COVID-19 infection. 7. VTE prophylaxis with low molecular heparin Total time of the visit including total time spent in counseling or coordination of care, (more than 50% of the total time, spent in obtaining medical in formation from nurses and other ancillary care providers,explaining to the patient about labs, imaging, diagnosis and management), discussion with consultants ID and oncologist Dr. Solomon, review of labs and imaging is 30 minutes. Charges/Coding Visit Charges Inpatient E&M: 63545 Subs Hosp L3
[2021-06-07] MEDS: Ipratropium/Albuterol Sulfate 3 ML AMPUL.NEB INHALATION ×2 (19:27→23:09)
[2021-06-07] MEDS: Atorvastatin Calcium 10 MG Tablet PO (23:01)
[2021-06-08] VITALS (14 sets, daily range): BP systolic 114–128; BP diastolic 62–70; PULSE 60–92; RESP 16–20; TEMP 36.4–37.1; O2SAT 87–95
[2021-06-08] MEDS: Ipratropium/Albuterol Sulfate 3 ML AMPUL.NEB INHALATION ×6 (03:43→22:48)
[2021-06-08 07:11] LABS: Hematocrit 32.7 % (40-54); Hemoglobin 10.3 g/dL (13.0-16.5); Mean Corp Hgb Conc 31.5 g/dL (32-36); Mean Corpuscular Hgb 33.7 pg (27.0-32.0); Mean Corpuscular Volume 106.9 fL (80-94); Mean Platelet Vol. 9.9 fl (6.2-12.0); POSITIVE COUNT YES; POSITIVE DIFFERENTIAL YES; POSITIVE MORPHOLOGY YES; Platelet Count 309 K/mm3 (150-450); RBC Distribution Width CV 13.4 % (11.6-14.6); RBC Distribution Width SD 52.4 fl (35.1-43.9); Red Blood Count 3.06 M/mm3 (4.6-6.2)
[2021-06-08 07:18] LABS: White Blood Count 108.4 K/mm3 (4.4-11.0)
[2021-06-08 07:40] LABS: Differential Indicated MANUAL DIFF
[2021-06-08 07:45] LABS: Blast 29 % (0-0); Hypochromasia 1+; Lymphocyte 64 % (19-41); Macrocytosis 1+; Monocyte 2 % (0-10); Neutrophil-Segmented 5 % (47-70); Platelet Estimate ADEQUATE (ADEQ)
[2021-06-08 07:46] LABS: Reactive Lymphocyte 4+
[2021-06-08 07:47] LABS: Absolute Lymphocyte Count 69.38 X10^3/uL (0.83-4.51); Absolute Neutrophil Count 5.4 X10^3/uL (2.0-7.7)
[2021-06-08 08:58] LABS: D-Dimer Quantitative (DVT/PE) 1.75 FEU/ug/m (0.27-0.49)
[2021-06-08 09:24] LABS: CPK Total, Creatine Kinase 26 U/L (39-308); LDH 341 U/L (87-241); Magnesium 2.3 mg/dL (1.6-2.6); Uric Acid 1.9 mg/dL (3.5-7.2)
[2021-06-08] MEDS: Losartan Potassium 100 MG Tablet PO (09:31)
[2021-06-08] MEDS: Enoxaparin 40 MG/0.4 ML Syringe SC (09:31)
[2021-06-08] MEDS: Doxazosin 4 MG Tablet PO (09:31)
[2021-06-08] MEDS: Metoprolol(XL)Succ 100 MG Tablet PO (09:31)
[2021-06-08] MEDS: dexAMETHasone 4 MG Tablet 6 MG PO (09:32)
[2021-06-08] MEDS: guaiFENesin 1,200 MG Tablet 1200 MG PO ×2 (09:32→20:34)
[2021-06-08 09:34] LABS: Phosphorus 2.9 mg/dL (2.5-4.9)
[2021-06-08 10:47] LABS: Scan Smear per Review Criteria MANUAL DIFF
[2021-06-08 11:19] LABS: Procalcitonin 0.32 ng/mL (0.00-0.09)
--- NOTE | 2021-06-08 12:04 | PN.HOSP_ITS ---
Subjective Subjective States his shortness of breath is better than yesterday. Patient was on airVo last night changed to nasal cannula currently on 10 L of oxygen. Patient informed about increasing leukocytosis mainly lymphocytosis and inflammatory markers. Objective Data Objective Data Vital Signs: Vital Signs Temp Pulse Resp BP Pulse Ox 98.6 F 86 18 114/69 91 06/08/21 09:23 06/08/21 11:43 06/08/21 11:43 06/08/21 09:23 06/08/21 11:43 Oxygen Flow Rate (L/min) 10 Oxygen Delivery Method Nasal Cannula Weight: 155 lb 10.342 oz Body Mass Index (BMI) 23.6 Intake & Output: Intake and Output for Last 24 Hours 06/06/21 06/07/21 06/08/21 23:59 23:59 23:59 Intake Total 1452.25 / 1452.25 1950 / 1950 200 / 200 Output Total 850 / 850 600 / 600 Balance 1452.25 / 1452.25 1100 / 1100 -400 / -400 Medical Nutrition Assessment Dietitian: Malnutrition Criteria Met Start: 06/06/21 10:19 Freq: Status: Active Protocol: Document 06/06/21 10:20 BP (Rec: 06/06/21 10:20 BP [id number]) Nutrition Malnutrition Evidence of Malnutrition Exists Yes Malnutrition (severe): Acute Illness/Injury Evidenced By Suboptimal Energy Intake ( Severe),Weight Loss (Severe) Clinical Problem Acute Disease or Injury Related Malnutrition Etiology Severe malnutrition in the context of Acute illness as evidenced by inadequate oral intake and weight loss due to signs/symptoms of COVID 19 Signs/Symptoms as evidenced by pt report consuming <50% energy intake x 1 1/2 weeks due to poor appetite, loss of sense of taste & smell, and 8% unintentional wt loss x 1 1/2 weeks. Status Active Problem Recommendation Dietitian Recommendations/Changes Continue Regular diet. Will provide 120 ml ensure enlive with meals and Magic cup w/ L&D for additional kristina/ protein if consumed. Lab / Micro Data Result Diagrams: 06/08/21 06:42 06/07/21 11:34 Labs: Laboratory Results - last 24 hr 06/07/21 11:34: WBC 96.8 H*, RBC 3.05 L, Hgb 10.5 L, Hct 32.2 L, MCV 105.6 H, MCH 34.4 H, MCHC 32.6, RDW Std Deviation 51.2 H, RDW Coeff of Aleksandar 13.3, Plt Count 289, MPV 10.0, Immature Gran % (Auto) RESTAURANT KITCHEN MANAGER, Neut % (Auto) RESTAURANT KITCHEN MANAGER, Lymph % (Auto) RESTAURANT KITCHEN MANAGER, [place] % (Auto) RESTAURANT KITCHEN MANAGER, Eos % (Auto) RESTAURANT KITCHEN MANAGER, Baso % (Auto) RESTAURANT KITCHEN MANAGER, Absolute Neuts (auto) 4.8, Absolute Lymphs (auto) 57.11 H, Total Counted 100, Neutrophils % (Manual) 5 L, Lymphocytes % (Manual) 59 H, Monocytes % (Manual) 12 H, Myelocytes % 5 H, Blast Cells % 19 H*, Nucleated RBC % 0, Diff Path Review May adilia, Platelet Estimate ADEQUATE, RBC Morphology N CHROM, Macrocytosis 2+ 06/07/21 11:34: Sodium 132 L, Potassium 4.6, Chloride 97 L, Carbon Dioxide 30.0, Anion Gap 5, BUN 23 H, Creatinine 0.94, Estim Creat Clear Calc 89.95, Est GFR (MDRD) Af Amer 108, Est GFR (MDRD) Non-Af 89, BUN/Creatinine Ratio 24.4 H, Glucose 223 H, Calcium 8.3 L, Total Bilirubin 0.90, AST 116 H, ALT 400 H, Alkaline Phosphatase 94, Total Protein 6.5, Albumin 2.1 L, Globulin 4.4 H, A lbumin/Globulin Ratio 0.5 L 06/08/21 06:42: WBC 108.4 H*, RBC 3.06 L, Hgb 10.3 L, Hct 32.7 L, MCV 106.9 H, MCH 33.7 H, MCHC 31.5 L, RDW Std Deviation 52.4 H, RDW Coeff of Aleksandar 13.4, Plt Count 309, MPV 9.9, Immature Gran % (Auto) RESTAURANT KITCHEN MANAGER, Neut % (Auto) RESTAURANT KITCHEN MANAGER, Lymph % (Auto) RESTAURANT KITCHEN MANAGER, [place] % (Auto) RESTAURANT KITCHEN MANAGER, Eos % (Auto) RESTAURANT KITCHEN MANAGER, Baso % (Auto) RESTAURANT KITCHEN MANAGER, Absolute Neuts (auto) 5.4, Absolute Lymphs (auto) 69.38 H, Total Counted RESTAURANT KITCHEN MANAGER, Neutrophils % (Manual) 5 L, Lymphocytes % (Manual) 64 H, Monocytes % (Manual) 2, Blast Cells % 29 H*, Nucleated RBC % RESTAURANT KITCHEN MANAGER, Diff Path Review May foll, Reactive Lymphocytes 4+ H, Platelet Estimate ADEQUATE, Hypochromasia 1+, Macrocytosis 1+ 06/08/21 08:36: D-Dimer Quant (PE/DVT) 1.75 H* 06/08/21 08:36: Uric Acid 1.9 L, Magnesium 2.3, Lactate Dehydrogenase 341 H, Total Creatine Kinase 26 L, C-React Prot Ext Range 268.00 H 06/08/21 08:36: Phosphorus 2.9 06/08/21 08:36: Procalcitonin 0.32 H Micro: Microbiology 06/06/21 10:00 Sputum, Expectorated/Coughed Gram Stain - Final 06/06/21 10:00 Sputum, Expectorated/Coughed Respiratory Culture - Preliminary Escherichia coli Staphylococcus aureus 06/06/21 02:35 Urine, Clean Catch Legionella Antigen - Final 06/06/21 02:35 Urine, Clean Catch Streptococcus pneumoniae Antigen (M - Final 06/06/21 02:05 Mucosa - Nasopharyngeal Respiratory Panel (PCR) - Final Rhythm Strip Rhythm Strip: Sinus Rhythm Rate: 76 Ectopy: None Physical Exam Narrative General: Alert, Oriented x3, Cooperative HEENT: Atraumatic, PERRLA, EOMI, Normocephalic Oral: No Gingival or Mucosal Lesions/ Ulcerations Neck: Supple, No JVD, Negative Carotid Bruits Lungs: Air entry diminished in bilateral lung bases. Dyspnea at rest. Severe hypoxia. Coarse crepitations improving Cardiovascular: Regular rate, Regular Rhythm, Normal S1, Normal S2, No murmurs Abdomen: Bowel Sounds Present, Soft, Non Tender, Non-Distended : No renal angle tenderness. No suprapubic tenderness. Extremities: No edema, Capillary Refill Less than 3 Seconds Skin: No rashes, No breakdown Musculoskeletal: No Tenderness to Palpation of Joints or Extremities Neurological: Cranial nerves II-XII grossly intact, DTR 2+/4 and Symmetrical, Neuro grossly intact Psych/Mental Status: Normal Affect, Appropriate. Assessment & Plan Assessment/Plan (1) Acute respiratory failure with hypoxia: (2) Streptococcal pneumonia: (3) COVID-19 virus infection: (4) Acute hyponatremia: PLAN: 1. Acute hypoxic respiratory failure due to bilateral COVID-19 pneumonia with bacterial superinfection 06/07: Patient is on Airvo. I discussed with the patient regarding intubation ventilator if needed at last resort and he said he is okay with the ventilator as last resort but does not like to be intubated if it can be avoided. Talked with the siebel administrator. Currently on NIPPV. COVID-19 PCR positive. 06/08: Mild subjective improvement of respiratory status. Temperature 102.5 ?F on 06/07 2. Possible pneumococcal pneumonia: Patient is on ceftriaxone and azithromycin. Urinary antigens are negative. Patient has fever 101 Fahrenheit. Azithromycin discontinued 06/07: Sputum culture growing gram-negative rods lactose firmware architect and patient is having fever therefore will continue antibiotic. 3. COVID-19 pneumonia, acute: Patient is unvaccinated. His had vaccine. Patient had 3 days of dexamethasone before admission. Patient out of window for remdesivir. Does not seem to be candidate for baricitinib as patient has CLL immunocompromised and biologic will not be a good option. 06/07: Discussed with ID and currently does not seem to do anything different. 06/08: Not candidate for baricitinib as patient is immunocompromised host and kan vated ALT although slight improvement in ALT. Inflammatory markers are elevated including D-dimer, fibrinogen and CRP. Procalcitonin 0.32, better than before. 4. Hyponatremia * Probably due to HCTZ. HCTZ on hold. Sodium 132. Patient had IV fluid without significant improvement in serum sodium. 5. Hypertension Hold HCTZ. Continue with losartan and metoprolol succinate 6. CLL * I talked to Dr. Solomon. He said his WC count was in 50,000s inmate 2020 but is slowly getting higher. Currently 95.6 thousand. ALC 72.54 thousand. ANC 2.[address] Solomon patient did not had any indication for CLL chemotherapy but looks like he might need after he recovers from COVID-19. Patient had refused flu vaccine in the past. His is vaccinated. Patient was distressed about need for vaccine as patient is immunocompromised and nonfunctional lymphocytes. Currently does not need any specific treatment for CLL in regard to COVID-19 infection. 06/08: Progressive increase in WBC count 108,000 mainly lymphocytosis. Blast cells 29%, myelocytes 5%. Concern for tumor lysis syndrome therefore uric acid and electrolytes were ordered. LDH 341. CK 26. K4.6. Phosphorus 2.9. Uric acid 1.9. 7. VTE prophylaxis with low molecular heparin Total time of the visit including total time spent in counseling or coordination of care, (more than 50% of the total time, spent in obtaining medical information from nurses and other ancillary care providers,explaining to the patient about labs, imaging, diagnosis and management), discussion with consultants ID and oncologist Dr. Solomon, review of labs and imaging is 30 minutes. Charges/Coding Visit Charges Inpatient E&M: 48123 Subs Hosp L2
--- NOTE | 2021-06-08 13:32 | NURSING ---
Pt assisted into bed and now laying prone. spo2 95% on Airvo.
--- NOTE | 2021-06-08 14:18 | NURSING ---
Report given to Nacho LI at this time.
[2021-06-08] MEDS: Atorvastatin Calcium 10 MG Tablet PO (20:34)
[2021-06-09] VITALS (24 sets, daily range): BP systolic 111–124; BP diastolic 66–74; PULSE 63–78; RESP 17–22; TEMP 35.9–36.6; O2SAT 85–98
[2021-06-09] MEDS: Ipratropium/Albuterol Sulfate 3 ML AMPUL.NEB INHALATION ×6 (02:32→23:15)
[2021-06-09 06:58] LABS: Basophil# 0.03 X10^3/uL; Hematocrit 31.1 % (40-54); Hemoglobin 9.6 g/dL (13.0-16.5); Lymphocyte # 99.02 X10^3/ul (0.83-4.51); Mean Corp Hgb Conc 30.9 g/dL (32-36); Mean Corpuscular Hgb 33.2 pg (27.0-32.0); Mean Corpuscular Volume 107.6 fL (80-94); Monocyte# 23.78 X10^3/uL; NRBC Flagged by Analyzer 0 % (0-5); Neutrophil # 4.31 X10^3/uL (2.7-7.7); POSITIVE COUNT YES; POSITIVE DIFFERENTIAL YES; POSITIVE MORPHOLOGY YES; Platelet Count 376 K/mm3 (150-450); RBC Distribution Width CV 13.4 % (11.6-14.6); RBC Distribution Width SD 52.2 fl (35.1-43.9); Red Blood Count 2.89 M/mm3 (4.6-6.2)
[2021-06-09 07:08] LABS: Differential Indicated SCAN CRITERIA MET; White Blood Count 127.5 K/mm3 (4.4-11.0)
[2021-06-09 07:33] LABS: ALB/GLOB Ratio 0.4 RATIO (0.9-2.4); AST(SGOT) 462 U/L (15-37); Alanine Aminotransfer ALT/SGPT 1127 U/L (16-61); Alkaline Phosphatase 141 U/L (45-117); Anion Gap 5 (5-15); BUN 27 mg/dL (7-18); BUN/Creat Ratio 38.1 RATIO (10-20); Calcium,Total 8.8 mg/dL (8.5-10.1); Chloride 101 mmol/L (98-107); Creatinine, Serum 0.71 mg/dL (0.70-1.30); EST Glomerular Filtration Rate 124 mL/min (>60); Est Glom Filt Rate - Afr Amer 150 mL/min (>60); Estimated Creatinine Clearance 119.08 ml/min; Globulin 4.5 g/dL (2.2-4.2); Glucose 195 mg/dL (74-106); Potassium 4.5 mmol/L (3.5-5.1); Protein, Total 6.5 g/dL (6.4-8.2); Sodium Level 134 mmol/L (136-145)
[2021-06-09 07:55] LABS: Scan Smear per Review Criteria MANUAL DIFF
[2021-06-09 07:59] LABS: Blast 43 % (0-0); Lymphocyte 52 % (19-41); Neutrophil-Segmented 5 % (47-70); Total Cells Counted 100 (MANUAL DIFF)
[2021-06-09 08:00] LABS: Hypochromasia 1+; Platelet Estimate ADEQUATE (ADEQ)
[2021-06-09 08:01] LABS: Absolute Neutrophil Count 6.4 X10^3/uL (2.0-7.7)
[2021-06-09] MEDS: Doxazosin 4 MG Tablet PO (09:30)
[2021-06-09] MEDS: guaiFENesin 1,200 MG Tablet 1200 MG PO ×2 (09:30→20:54)
[2021-06-09] MEDS: dexAMETHasone 4 MG Tablet 6 MG PO (09:30)
[2021-06-09] MEDS: Losartan Potassium 100 MG Tablet PO (09:30)
[2021-06-09] MEDS: Enoxaparin 40 MG/0.4 ML Syringe SC (09:30)
[2021-06-09] MEDS: 0.9% Saline Lock 10 ML Syringe IV ×3 (09:30→20:56)
[2021-06-09] MEDS: Metoprolol(XL)Succ 100 MG Tablet PO (09:30)
--- NOTE | 2021-06-09 12:01 | PN.HOSP_ITS ---
Subjective Subjective WBC count, lymphocytes and blast cells high. Patient afebrile, last temperature 102.5 about 48 hours ago. Discussed with oncologist Dr. Solomon. Objective Data Objective Data Vital Signs: Vital Signs Temp Pulse Resp BP Pulse Ox 96.6 F L 77 22 H 124/74 H 93 06/09/21 09:22 06/09/21 11:35 06/09/21 11:35 06/09/21 09:22 06/09/21 10:57 Oxygen Flow Rate (L/min) [ 8 AMBULATING with Oxygen #1] Oxygen Flow Rate (L/min) 12 Oxygen Delivery Method High Flow Weight: 155 lb 10.342 oz Body Mass Index (BMI) 23.6 Intake & Output: Intake and Output for Last 24 Hours 06/07/21 06/08/21 06/09/21 23:59 23:59 22:59 Intake Total 1950 / 1950 760 / 760 100 / 100 Output Total 850 / 850 600 / 1100 850 / 850 Balance 1100 / 1100 160 / -340 -750 / -750 Medical Nutrition Assessment Dietitian: Malnutrition Criteria Met Start: 06/06/21 10:19 Freq: Status: Active Protocol: Document 06/06/21 10:20 BP (Rec: 06/06/21 10:20 BP [id number]) Nutrition Malnutrition Evidence of Malnutrition Exists Yes Malnutrition (severe): Acute Illness/Injury Evidenced By Suboptimal Energy Intake ( Severe),Weight Loss (Severe) Clinical Problem Acute Disease or Injury Related Malnutrition Etiology Severe malnutrition in the context of Acute illness as evidenced by inadequate oral intake and weight loss due to signs/symptoms of COVID 19 Signs/Symptoms as evidenced by pt report consuming <50% energy intake x 1 1/2 weeks due to poor appetite, loss of sense of taste & smell, and 8% unintentional wt loss x 1 1/2 weeks. Status Active Problem Recommendation Dietitian Recommendations/Changes Continue Regular diet. Will provide 120 ml ensure enlive with meals and Magic cup w/ L&D for additional kristina/ protein if consumed. Lab / Micro Data Result Diagrams: 06/09/21 06:20 06/09/21 06:20 Labs: Laboratory Results - last 24 hr 06/09/21 06:20: WBC 127.5 H*, RBC 2.89 L, Hgb 9.6 L, Hct 31.1 L, MCV 107.6 H, MCH 33.2 H, MCHC 30.9 L, RDW Std Deviation 52.2 H, RDW Coeff of Aleksandar 13.4, Plt Count 376, MPV 10.0, Immature Gran % (Auto) INSTRUMENT REPAIRER, Neut % (Auto) INSTRUMENT REPAIRER, Lymph % (Auto) INSTRUMENT REPAIRER, Stanley % (Auto) INSTRUMENT REPAIRER, Eos % (Auto) INSTRUMENT REPAIRER, Baso % (Auto) INSTRUMENT REPAIRER, Absolute Neuts (auto) 6.4, Absolute Lymphs (auto) 66.30 H, Total Counted 100, Neutrophils % (Manual) 5 L, Lymphocytes % (Manual) 52 H, Blast Cells % 43 H*, Nucleated RBC % 0, Diff Path Review December, Platelet Estimate ADEQUATE, Hypochromasia 1+ 06/09/21 06:20: Sodium 134 L, Potassium 4.5, Chloride 101, Carbon Dioxide 28.0, Anion Gap 5, BUN 27 H, Creatinine 0.71, Estim Creat Clear Calc 119.08, Est GFR ( MDRD) Af Amer 150, Est GFR (MDRD) Non-Af 124, BUN/Creatinine Ratio 38.1 H, Glucose 195 H, Calcium 8.8, Total Bilirubin 1.50 H, AST 462 H, ALT 1127 H, Alkaline Phosphatase 141 H, Total Protein 6.5, Albumin 2.0 L, Globulin 4.5 H, Albumin/Globulin Ratio 0.4 L Micro: Microbiology 06/06/21 10:00 Sputum, Expectorated/Coughed Gram Stain - Final 06/06/21 10:00 Sputum, Expectorated/Coughed Respiratory Culture - Final Escherichia coli Staphylococcus aureus 06/05/21 19:00 Blood Culture (Wb) - Anticubital Right Blood Culture - Final No growth. 06/05/21 19:00 Blood Culture (Wb) - Anticubital Left Blood Culture - Final No growth. 06/06/21 02:35 Urine, Clean Catch Legionella Antigen - Final 06/06/21 02:35 Urine, Clean Catch Streptococcus pneumoniae Antigen (M - Final 06/06/21 02:05 Mucosa - Nasopharyngeal Respiratory Panel (PCR) - Final Rhythm Strip Rhythm Strip: Sinus Rhythm Rate: 76 Ectopy: None Physical Exam Narrative Patient on 12 L of oxygen at night. Did not require BiPAP yet. Was on nasal cannula last night too. Patient moved bowel. General: Alert, Oriented x3, Cooperative HEENT: Atraumatic, PERRLA, EOMI, Normocephalic Oral: No Gingival or Mucosal Lesions/ Ulcerations Neck: Supple, No JVD, Negative Carotid Bruits Lungs: Air entry diminished in bilateral lung bases. Severe hypoxia. No crepitation/rhonchi. Cardiovascular: Regular rate, Regular Rhythm, Normal S1, Normal S2, No murmurs Abdomen: Bowel Sounds Present, Soft, Non Tender, Non-Distended : No renal angle tenderness. No suprapubic tenderness. Extremities: No edema, Capillary Refill Less than 3 Seconds Skin: No rashes, No breakdown Musculoskeletal: No Tenderness to Palpation of Joints or Extremities Neurological: Cranial nerves II-XII grossly intact, DTR 2+/4 and Symmetrical, Neuro grossly intact Psych/Mental Status: Normal Affect, Appropriate. Assessment & Plan Assessment/Plan (1) Acute respiratory failure with hypoxia: (2) Streptococcal pneumonia: (3) COVID-19 virus infection: (4) Acute hyponatremia: PLAN: 1. Acute hypoxic respiratory failure due to bilateral COVID-19 pneumonia with bacterial superinfection 06/07: Patient is on Airvo. I discussed with the patient regarding intubation ventilator if needed at last resort and he said he is okay with the ventilator as last resort but does not like to be intubated if it can be avoided. Talked with the antique furniture repairer. Currently on NIPPV. COVID-19 PCR positive. 06/08: Mild subjective improvement of respiratory status. Temperature 102.5 ?F on 06/07 06/09: Patient on nasal cannula. On NIPPV. 2. Possible pneumococcal pneumonia: Patient is on ceftriaxone and azithromycin. Urinary antigens are negative. Patient has fever 101 Fahrenheit. 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 06/09: Final sputum culture shows E. coli and MSSA. Patient did not had fever for last 48 hours continue the same. Discussed with ID. 3. COVID-19 pneumonia, acute: Patient is unvaccinated. His had vaccine. Patient had 3 days of dexamethasone before admission. Patient out of window for remdesivir. Does not seem to be candidate for baricitinib as patient has CLL immunocompromised and biologic will not be a good option. 06/07: Discussed with ID and currently does not seem to do anything different. 06/08: Not candidate for baricitinib as patient is immunocompromised host and elevated ALT although slight improvement in ALT. Inflammatory markers are elevated including D-dimer, fibrinogen and CRP. Procalcitonin 0.32, better than before. 4. Hyponatremia * Probably due to HCTZ. HCTZ on hold. Sodium 132. Patient had IV fluid with out significant improvement in serum sodium. 5. Hypertension Hold HCTZ. Continue with losartan and metoprolol succinate 6. CLL * I talked to Dr. Solomon. He said his WC count was in 50,000s inmate 2020 but is slowly getting higher. Currently 95.6 thousand. ALC 72.54 thousand. ANC 2.[address] Solomon patient did not had any indication for CLL chemotherapy but looks like he might need after he recovers from COVID-19. Patient had refused flu vaccine in the past. His is vaccinated. Patient was distressed about need for vaccine as patient is immunocompromised and nonfunctional lymphocytes. Currently does not need any specific treatment for CLL in regard to COVID-19 infection. 06/08: Progressive increase in WBC count 108,000 mainly lymphocytosis. Blast cells 29%, myelocytes 5%. Concern for tumor lysis syndrome therefore uric acid and electrolytes were ordered. LDH 341. CK 26. K4.6. Phosphorus 2.9. Uric acid 1.9. 06/08: Progressive increase WBC count, lymphocytosis and blast cells. Discussed with Dr. Solomon and consult placed. 7. VTE prophylaxis with low molecular heparin Total time of the visit including total time spent in counseling or coordination of care, (more than 50% of the total time, spent in obtaining medical information from nurses and other ancillary care providers,explaining to the patient about labs, imaging, diagnosis and management), discussion with consultants ID and oncologist Dr. Solomon, review of labs and imaging is 30 minutes. Charges/Coding Visit Charges Inpatient E&M: 55913 Subs Hosp L3
--- NOTE | 2021-06-09 14:51 | CON.PCM.ON_ITS ---
Assessment & Plan Assessment/Plan (1) Acute respiratory failure with hypoxia: Status: Acute Code(s): J96.01 - Acute respiratory failure with hypoxia (2) Streptococcal pneumonia: Status: Acute Code(s): J15.4 - Pneumonia due to other streptococci (3) COVID-19 virus infection: Status: Acute Code(s): U07.1 - COVID-19 (4) Acute hyponatremia: Status: Acute Code(s): E87.1 - Hypo-osmolality and hyponatremia (5) Chronic lymphocytic leukemia (CLL), B-cell: Status: Chronic Code(s): C91.10 - Chronic lymphocytic leukemia of B-cell type not having achieved remission Qualifiers: Leukemia Active/Remission status: without remission Qualified Code(s): C91.10 - Chronic lymphocytic leukemia of B-cell type not having achieved remission Plan: Impression: -Covid-19 pneumonia. -Hypoxemic respiratory failure. -Possible secondary bacterial pneumonia. -CLL x11 years with slow increase in peripheral lymphocyte count prior to admission. -Increase in total WBC count with decrease in ALC per automated counter. -Potential blasts--Peripheral smear reviewed--numerous large cells with scant cytoplasm. Areas of condensed chromatin and nucleoli. They do not have the appearance of atypical lymphocytes. Plan: -Discussed wtih Dr. Clancy--she reviewed and discussed with me. Cells appear to be atypical lymphocytes and not myeloblasts. -Potential transfer to [facility] if further need to rule out AML -Discussed with patient and Dr. Lopez. HPI Consult Data Date of Service:: 06/10/21 PCP / Referring Provider: YOUSIF Bermudez Attending: Dr. Ulices Lopez MD Chief Complaint Chief Complaint: CLL with increasing lymphoctye count and development of blasts. History of Present Illness History of Present Illness: The patient is a 50-year-old male who was diagnosed with CLL approximately 11 years ago when he had a CBC performed at the time of his mother's diagnosis of CLL. He has not required treatment. He has had a slow increase in absolute lymphocyte count but no development of anemia, thrombocytopenia, constitutional symptoms or other indication for therapy. Patient developed symptoms around 05/24. Evidently he took a home test which was positive for Covid. He continued to have daily fevers as high as 103.7. 5 days before presentation on 06/05, he had a syncopal episode and fell. He split his lip and chipped a tooth. The day prior to presentation he developed a worsening cough. His PCP prescribed Decadron. Patient became more short of breath and presented to the emergency department. He was 85% on room air at the time of presentation. He also had hyponatremia with a sodium of 125. Had been on hydrochlorothiazide. He was given hydration. Chest x-ray demonstrated bilateral opacities suggestive of pneumonia.Chest x-ray demonstrated bilateral opacities suggestive of pneumonia. CT of the chest demonstrated bilateral lower lobe consolidation consistent with pneumonia. There were moderately extensive groundglass opacities in the upper lobes consistent with pneumonia as well. He was started on azithromycin and ceftriaxone. Since he had received 3 days of dexamethasone prior to admission, he was not given monoclonal antibody for Covid. This was also discussed with ID. Patient has been noted to have increasing total white blood cell count with Small decline in absolute lymphocyte count. On Thursday he was noted to have blasts on the peripheral smear. These have increased. I was contacted today about this. Advanced Directives Power of [employer] Operations Consultant: No Living Will: No [facility] Medical History CLL (chronic lymphocytic leukemia) HTN (hypertension) Home Medications hydrochlorothiazide 12.5 mg PO DAILY 02/02/20 [History Last Taken 06/05/21] losartan 100 mg PO DAILY 02/02/20 [History Last Taken 06/05/21] metoprolol succinate 50 mg PO DAILY 02/02/20 [History Last Taken 06/05/21] dexamethasone 6 mg PO DAILY 06/06/21 [History Last Taken 06/05/21] doxazosin 4 mg PO DAILY 06/06/21 [History Last Taken 06/05/21] rosuvastatin [Crestor] 5 mg PO DAILY 06/06/21 [History Last Taken 06/05/21] Allergy/AdvReac Type Severity Reaction Status Date / Time No Known Allergies Allergy Verified 06/05/21 18:16 Family History (Updated 06/05/21 @ 23:[address] Bob Rao DO) Other CLL (chronic lymphocytic leukemia) Social History (Updated 06/05/21 @ 23:[address] Bob Rao DO) Smoking Status: Never smoker alcohol intake: current alcohol intake frequency: a few times a month Vital Signs Temperature 97.9 F 06/09/21 14:02 Temperature Source Oral 06/09/21 14:02 Pulse Rate 71 06/09/21 14:02 Pulse Strength Normal (2+) 06/07/21 10:00 Respiratory Rate 18 06/09/21 14:02 Respiratory Effort 06/09/21 14:02 Respiratory Depth Normal 06/08/21 20:30 Respiratory Pattern Normal 06/09/21 11:35 Blood Pressure 111/66 06/09/21 14:02 Blood Pressure Mean 81 06/09/21 14:02 Blood Pressure Source Monitor 06/09/21 14:02 Blood Pressure Position Right Lateral 06/09/21 14:02 Blood Pressure Location Left Arm 06/09/21 14:02 Pulse Ox 93 06/09/21 14:02 Oxygen Delivery Method High Flow 06/09/21 14:02 Oxygen Flow Rate (L/min) 12 06/09/21 14:02 Fraction of Inspired Oxygen (FIO2) 60 06/08/21 07:39 Laboratory Results - last 24 hr 06/09/21 06:20: WBC 127.5 H*, RBC 2.89 L, Hgb 9.6 L, Hct 31.1 L, MCV 107.6 H, MCH 33.2 H, MCHC 30.9 L, RDW Std Deviation 52.2 H, RDW Coeff of Aleksandar 13.4, Plt Count 376, MPV 10.0, Immature Gran % (Auto) MANAGER SOCIAL SERVICES, Neut % (Auto) MANAGER SOCIAL SERVICES, Lymph % (Auto) MANAGER SOCIAL SERVICES, Randolph % (Auto) MANAGER SOCIAL SERVICES, Eos % (Auto) MANAGER SOCIAL SERVICES, Baso % (Auto) MANAGER SOCIAL SERVICES, Absolute Neuts (auto) 6.4, Absolute Lymphs (auto) 66.30 H, Total Counted 100, Neutrophils % (Manual) 5 L, Lymphocytes % (Manual) 52 H, Blast Cells % 43 H*, Nucleated RBC % 0, Diff Path Review May adilia, Platelet Estimate ADEQUATE, Hypochromasia 1+ 06/09/21 06:20: Sodium 134 L, Potassium 4.5, Chloride 101, Carbon Dioxide 28.0, Anion Gap 5, BUN 27 H, Creatinine 0.71, Estim Creat Clear Calc 119.08, Est GFR (MDRD) Af Amer 150, Est GFR (MDRD) Non-Af 124, BUN/Creatinine Ratio 38.1 H, Glucose 195 H, Calcium 8.8, Total Bilirubin 1.50 H, AST 462 H, ALT 1127 H, Alkaline Phosphatase 141 H, Total Protein 6.5, Albumin 2.0 L, Globulin 4.5 H, Albumin/Globulin Ratio 0.4 L Microbiology 06/06/21 10:00 Sputum, Expectorated/Coughed Gram Stain - Final 06/06/21 10:00 Sputum, Expectorated/Coughed Respiratory Culture - Final Escherichia coli Staphylococcus aureus 06/05/21 19:00 Blood Culture (Wb) - Anticubital Right Blood Culture - Final No growth. 06/05/21 19:00 Blood Culture (Wb) - Anticubital Left Blood Culture - Final No growth. Diagnostic Data Chest X-Ray 06/05/21 19:51 IMPRESSION: Bilateral hazy opacities consistent with pneumonia. Electronically Signed: Virginia Jewell MD at 21:20 EDT Tel , Service support , Chest CTA 06/05/21 20:03 IMPRESSION: 1. Bilateral pneumonia. Typical bacterial pneumonia is favored. 2. Mediastinal and hilar adenopathy, likely reactive. 3. No pulmonary embolus or aortic dissection. Electronically Signed: Virginia Jewell MD at 22:43 EDT Tel , Service support ,
[2021-06-09] MEDS: Atorvastatin Calcium 10 MG Tablet PO (20:54)
[2021-06-10] VITALS (18 sets, daily range): BP systolic 110–140; BP diastolic 63–81; PULSE 58–93; RESP 18–26; TEMP 35.9–37.1; O2SAT 88–96
[2021-06-10] MEDS: Ipratropium/Albuterol Sulfate 3 ML AMPUL.NEB INHALATION ×6 (03:17→23:02)
[2021-06-10] MEDS: 0.9% Saline Lock 10 ML Syringe IV ×2 (05:57→16:31)
[2021-06-10 07:18] LABS: Absolute Lymphocyte Count 114.76 X10^3/uL (0.83-4.51); Absolute Neutrophil Count 4.2 X10^3/uL (2.0-7.7); Basophil# 0.03 X10^3/uL; Eosinophil# 0.01 X10^3/uL; Hematocrit 30.8 % (40-54); Hemoglobin 9.3 g/dL (13.0-16.5); Lymphocyte # 114.76 X10^3/ul (0.83-4.51); Mean Corp Hgb Conc 30.2 g/dL (32-36); Mean Corpuscular Hgb 32.7 pg (27.0-32.0); Mean Corpuscular Volume 108.5 fL (80-94); Mean Platelet Vol. 9.9 fl (6.2-12.0); Monocyte# 31.68 X10^3/uL; NRBC Flagged by Analyzer 0 % (0-5); Neutrophil # 4.24 X10^3/uL (2.7-7.7); Neutrophil % 2.8 % (47-70); POSITIVE COUNT YES; POSITIVE DIFFERENTIAL YES; POSITIVE MORPHOLOGY YES; Platelet Count 413 K/mm3 (150-450); RBC Distribution Width CV 14.4 % (11.6-14.6); RBC Distribution Width SD 55.5 fl (35.1-43.9); RET-HE 36.8 pg (30-35); Red Blood Count 2.84 M/mm3 (4.6-6.2); Reticulocyte Count 1.57 % (0.5-1.5)
[2021-06-10 07:32] LABS: Differential Indicated SCAN CRITERIA MET
[2021-06-10 07:58] LABS: ALB/GLOB Ratio 0.5 RATIO (0.9-2.4); AST(SGOT) 141 U/L (15-37); Alanine Aminotransfer ALT/SGPT 851 U/L (16-61); Alkaline Phosphatase 134 U/L (45-117); Anion Gap 3 (5-15); BUN 29 mg/dL (7-18); BUN/Creat Ratio 40.1 RATIO (10-20); Calcium,Total 8.6 mg/dL (8.5-10.1); Chloride 102 mmol/L (98-107); Creatinine, Serum 0.72 mg/dL (0.70-1.30); EST Glomerular Filtration Rate 121 mL/min (>60); Est Glom Filt Rate - Afr Amer 147 mL/min (>60); Estimated Creatinine Clearance 117.43 ml/min; Ferritin 2889 ng/mL (26-388); GGTP 168 U/L (15-85); Globulin 4.3 g/dL (2.2-4.2); Glucose 170 mg/dL (74-106); Magnesium 2.5 mg/dL (1.6-2.6); Potassium 4.4 mmol/L (3.5-5.1); Protein, Total 6.3 g/dL (6.4-8.2); Sodium Level 134 mmol/L (136-145)
[2021-06-10 08:21] LABS: Macrocytosis 1+; Platelet Estimate ADEQUATE (ADEQ)
[2021-06-10 09:08] LABS: Vitamin B12 1470 pg/mL (211-911)
[2021-06-10] MEDS: dexAMETHasone 4 MG Tablet 6 MG PO (10:46)
[2021-06-10] MEDS: Metoprolol(XL)Succ 100 MG Tablet PO (10:46)
[2021-06-10] MEDS: Doxazosin 4 MG Tablet PO (10:46)
[2021-06-10] MEDS: guaiFENesin 1,200 MG Tablet 1200 MG PO ×2 (10:46→21:09)
[2021-06-10] MEDS: Losartan Potassium 100 MG Tablet PO (10:46)
[2021-06-10] MEDS: Enoxaparin 40 MG/0.4 ML Syringe SC (10:47)
--- NOTE | 2021-06-10 11:18 | PCM.PN.HOSP ---
Subjective Subjective Patient on 12 L oxygen. WBC count 1 51,000. Talk to Dr. Solomon, Dr. Zurita, pathologist Dr. Clancy and patient's in the morning today Oxygen goes down about 8 L later in the evening and night. Objective Data Objective Data Vital Signs: Vital Signs Temp Pulse Resp BP Pulse Ox 96.8 F L 82 18 126/70 H 88 06/10/21 10:40 06/10/21 10:46 06/10/21 10:40 06/10/21 10:40 06/10/21 10:40 Oxygen Flow Rate (L/min) [ 12 AMBULATING with Oxygen #1] Oxygen Flow Rate (L/min) 15 Oxygen Delivery Method Nasal Cannula Weight: 155 lb 10.342 oz Body Mass Index (BMI) 23.6 Intake & Output: Intake and Output for Last 24 Hours 06/09/21 06/09/21 06/10/21 00:59 23:59 23:59 Intake Total 100 / 100 Output Total 500 / 500 Balance -400 / -400 Medical Nutrition Assessment Dietitian: Malnutrition Criteria Met Start: 06/06/21 10:19 Freq: Status: Active Protocol: Document 06/06/21 10:20 BP (Rec: 06/06/21 10:20 BP [id number]) Nutrition Malnutrition Evidence of Malnutrition Exists Yes Malnutrition (severe): Acute Illness/Injury Evidenced By Suboptimal Energy Intake ( Severe),Weight Loss (Severe) Clinical Problem Acute Disease or Injury Related Malnutrition Etiology Severe malnutrition in the context of Acute illness as evidenced by inadequate oral intake and weight loss due to signs/symptoms of COVID 19 Signs/Symptoms as evidenced by pt report consuming <50% energy intake x 1 1/2 weeks due to poor appetite, loss of sense of taste & smell, and 8% unintentional wt loss x 1 1/2 weeks. Status Active Problem Recommendation Dietitian Recommendations/Changes Continue Regular diet. Will provide 120 ml ensure enlive with meals and Magic cup w/ L&D for additional kristina/ protein if consumed. Lab / Micro Data Result Diagrams: 06/10/21 06:34 06/10/21 06:34 Labs: Laboratory Results - last 24 hr 06/09/21 06:20: Vitamin B12 1470 H 06/10/21 06:34: WBC 151.0 H*, RBC 2.84 L, Hgb 9.3 L, Hct 30.8 L, MCV 108.5 H, MCH 32.7 H, MCHC 30.2 L, RDW Std Deviation 55.5 H, RDW Coeff of Aleksandar 14.4, Plt Count 413, MPV 9.9, Immature Gran % (Auto) 0.200, Neut % (Auto) 2.8 L, Lymph % (Auto) 76.0 H, Lincoln % (Auto) 21.0 H, Eos % (Auto) 0.0, Baso % (Auto) 0.0, Absolute Neuts (auto) 4.2, Absolute Lymphs (auto) 114.76 H, Nucleated RBC % 0, Differential Comment COMMENT, Diff Path Review May foll, Platelet Estimate ADEQUATE, Macrocytosis 1+, Retic Count 1.57 H, Immature Retic Fraction 13.50, Retic Hgb Equivalent 36.8 H 06/10/21 06:34: Sodium 134 L, Potassium 4.4, Chloride 102, Carbon Dioxide 29.0, Anion Gap 3 L, BUN 29 H, Creatinine 0.72, Estim Creat Clear Calc 117.43, Est GFR (MDRD) Af Amer 147, Est GFR (MDRD) Non-Af 121, BUN/Creatinine Ratio 40.1 H, Glucose 170 H, Calcium 8.6, Magnesium 2.5, Ferritin 2889 H, Total Bilirubin 1.40 H, GGT 168 H, AST 141 H, ALT 851 H, Alkaline Phosphatase 134 H, C-React Prot Ext Range 120.00 H, Total Protein 6.3 L, Albumin 2.0 L, Globulin 4.3 H, Albumin/Globulin Ratio 0.5 L, Folate 5.60 Micro: Microbiology 06/06/21 10:00 Sputum, Expectorated/Coughed Gram Stain - Final 06/06/21 10:00 Sputum, Expectorated/Coughed Respiratory Culture - Final Escherichia coli Staphylococcus aureus 06/05/21 19:00 Blood Culture (Wb) - Anticubital Right Blood Culture - Final No growth. 06/05/21 19:00 Blood Culture (Wb) - Anticubital Left Blood Culture - Final No growth. 06/06/21 02:35 Urine, Clean Catch Legionella Antigen - Final 06/06/21 02:35 Urine, Clean Catch Streptococcus pneumoniae Antigen (M - Final 06/06/21 02:05 Mucosa - Nasopharyngeal Respiratory Panel (PCR) - Final Rhythm Strip Rhythm Strip: Sinus Rhythm Rate: 76 Ectopy: None Physical Exam Narrative Did not require BiPAP yet. General: Alert, Oriented x3, Cooperative HEENT: Atraumatic, PERRLA, EOMI, Normocephalic Oral: No Gingival or Mucosal Lesions/ Ulcerations Neck: Supple, No JVD, Negative Carotid Bruits Lungs: Air entry diminished in bilateral lung bases. Severe hypoxia. No crepitation/rhonchi. Cardiovascular: Regular rate, Regular Rhythm, Normal S1, Normal S2, No murmurs Abdomen: Bowel Sounds Present, Soft, Non Tender, Non-Distended : No renal angle tenderness. No suprapubic tenderness. Extremities: No edema, Capillary Refill Less than 3 Seconds Skin: No rashes, No breakdown Musculoskeletal: No Tenderness to Palpation of Joints or Extremities Neurological: Cranial nerves II-XII grossly intact, DTR 2+/4 and Symmetrical, Neuro grossly intact Psych/Mental Status: Normal Affect, Appropriate. Assessment & Plan Assessment/Plan (1) Acute respiratory failure with hypoxia: (2) Streptococcal pneumonia: (3) COVID-19 virus infection: (4) Acute hyponatremia: PLAN: 1. Acute hypoxic respiratory failure due to bilateral COVID-19 pneumonia with bacterial superinfection 06/07: Patient is on Airvo. I discussed with the patient regarding intubation ventilator if needed at last resort and he said he is okay with the ventilator as last resort but does not like to be intubated if it can be avoided. Talked with the solid tire finisher. Currently on NIPPV. COVID-19 PCR positive. 06/08: Mild subjective improvement of respiratory status. Temperature 102.5 ?F on 06/07 06/09: Patient on nasal cannula. On NIPPV. 06/10: Patient on 12 L of oxygen. Formal solid tire finisher/inspector assembly consult requested. No fever for last 72 hours. Continue cefepime. Discussed with ID 2. Possible pneumococcal pneumonia: Patient is on ceftriaxone and azithromycin. Urinary antigens are negative. Patient has fever 101 Fahrenheit. 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 06/09: Final sputum culture shows E. coli and MSSA. 3. COVID-19 pneumonia, acute: Patient is unvaccinated. His had vaccine. Patient had 3 days of dexamethasone before admission. Patient out of window for remdesivir. Does not seem to be candidate for baricitinib as patient has CLL immunocompromised and biologic will not be a good option. 06/07: Discussed with ID and currently does not seem to do anything different. 06/08: Not candidate for baricitinib as patient is immunocompromised host and elevated ALT although slight improvement in ALT. Inflammatory markers are elevated including D-dimer, fibrinogen and CRP. Procalcitonin 0.32, better than before. 4. Hyponatremia Probably due to HCTZ. HCTZ on hold. Sodium 132. Patient had IV fluid without significant improvement in serum sodium. 5. Hypertension Hold HCTZ. Continue with losartan and metoprolol succinate 6. CLL I talked to Dr. Solomon. He said his WC count was in 50,000s inmate 2020 but is slowly getting higher. Currently 95.6 thousand. ALC 72.54 thousand. ANC 2.[address] Solomon patient did not had any indication for CLL chemotherapy but looks like he might need after he recovers from COVID-19. Patient had refused flu vaccine in the past. His is vaccinated. Patient was distressed about need for vaccine as patient is immunocompromised and nonfunctional lymphocytes. Currently does not need any specific treatment for CLL in regard to COVID-19 infection. 06/08: Progressive increase in WBC count 108,000 mainly lymphocytosis. Blast cells 29%, myelocytes 5%. Concern for tumor lysis syndrome therefore uric acid and electrolytes were ordered. LDH 341. CK 26. K4.6. Phosphorus 2.9. Uric acid 1.9. 06/08: Progressive increase WBC count, lymphocytosis and blast cells. Discussed with Dr. Solomon and consult placed. 06/10: Progressive increase in WBC count 1 51,000. ALC 114,000. I had several rounds of talk with oncologist Dr. Solomon, pathologist, patient's and patient himself. Slide was removed by pathologist and it seems atypical lymphocytes and flow cytometry was ordered. Patient's requested Dr. Solomon and myself for transfer to [facility] with anticipation that Covid can get worse and/or worsening of WBC count. I called [facility], [facility] and they said they are not accepting patient unless if Covid patient requires transplant or ECMO or leukapheresis for blast crisis. I called the and left a voice message to call back. 7. VTE prophylaxis with low molecular heparin Total time of the visit including total time spent in counseling or coordination of care, (more than 50% of the total time, spent in obtaining medical information from nurses and other ancillary care providers,explaining to the patient about labs, imaging, diagnosis and management), discussion with consultants ID and oncologist Dr. Solomon, the pathologist review of labs and imaging is 30 minutes. Charges/Coding Visit Charges Inpatient E&M: 80547 Subs Hosp L3
[2021-06-10 13:27] LABS: Pathologist Review Reviewed
[2021-06-10 13:32] LABS: Pathologist Review Reviewed
[2021-06-10 13:33] LABS: Pathologist Review Reviewed
--- NOTE | 2021-06-10 15:28 | EX.PCM.CONCC ---
Assessment & Plan Assessment/Plan (1) Acute respiratory failure with hypoxia: (2) Streptococcal pneumonia: (3) COVID-19 virus infection: (4) Chronic lymphocytic leukemia (CLL), B-cell: QUALIFIERS: Leukemia Active/Remission status: without remission Qualified Code(s): C91.10 - Chronic lymphocytic leukemia of B-cell type not having achieved remission PLAN: RECOMMENDATIONS: 1. Challenge with diuretics 2. Consider empiric therapeutic anticoagulation 3. Wean oxygen as tolerated 4. Encourage incentive spirometer, prone positioning and Acapella as tolerated 5. Continue Decadron through 06/16/2021. Not a candidate for remdesivir or baricitinib 6. Consider right upper quadrant ultrasound 7. Obtain chest x-ray for comparison IMPRESSIONS: 1. Acute hypoxic respiratory failure secondary to COVID-19 Patient with progression of disease. Unfortunately, patient with delayed presentation so not a candidate for remdesivir. Patient with elevated liver enzymes making baricitinib a poor choice. Patient is on Decadron therapy. Would continue this. Patient is positive over 2 L through his hospitalization. Will attempt diuretic therapy. Wean oxygen as tolerated. Encourage prone positioning, incentive spirometer and Acapella as tolerated. Patient would be at higher risk for thrombotic complications. Will obtain a chest x-ray for comparison to presentation. 2. CLL Patient seen by oncology and reviewed slides with pathology. Unclear if patient has had transformation at this time. Patient is on Decadron therapy leading to elevated white blood cell count. Would continue Decadron through the of possible. No indication for transfusion from my perspective. 3. Unvaccinated status/hyperlipidemia/hypertension/BPH/elevated LFTs Complicates care, management, recovery and prognosis. Likely okay to continue with baseline medications. May need to hold losartan and hydrochlorothiazide if patient develops acute kidney injury. Patient with elevated LFTs, alkaline phosphatase and GGT. Consider right upper quadrant ultrasound. Defer to primary service. HPI Consult Data Date of Consult: 06/10/21 HPI Narrative HPI Narrative: YOSSI HESS is a 50 M, with past medical history listed below, who presented to [facility] on 06/05/2021 secondary to progressive shortness of breath, worsening malaise and a recent diagnosis of COVID-19. Patient states he was unvaccinated. Patient started to have symptoms on May 24 and verified COVID-19 with a home test about a week prior to presentation. Patient had had fevers up to 103.7?F daily. Patient reportedly had a syncopal episode 5 days prior to presentation leading to a chipped tooth. His PCP had ordered him Decadron, but patient did not report any significant improvement. Patient denied any nausea, vomiting or chest pain. Patient did not receive monoclonal antibody prior to presentation. In the ER, patient was afebrile, normotensive, but requiring 2 L nasal cannula to maintain saturations. White blood cell count was elevated 96.1, hemoglobin 12.4 and platelets of 271. Fibrinogen was greater than 900 and creatinine was 1.14. Glucose was elevated at 262, along with LFTs. CRP was elevated at 244 and pro calcitonin was slightly elevated at 0.58. A chest x-ray showed bilateral opacities and this was confirmed with a CTA of the chest showing mediastinal and hilar adenopathy without PE. Patient was admitted to the floor for further evaluation. Over the course of patient's hospitalization, saturations have continued to decline and patient is currently requiring Airvo at 75% to maintain saturations. Patient overall feels subjectively unchanged compared to previous. Patient reports significant dyspnea on exertion, but is relatively comfortable at rest. Patient has not had any problems with epistaxis or other complications from oxygen therapy. Patient has not had any significant lower extremity edema. Patient reports a 3-pack-year smoking history. 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 Patient denies any exposure to asbestos or TB. Patient has not required supplemental oxygen or an inhaler previously. Patient is unaware if he is ever had a pulmonary function test. Patient does follow with the [facility] for his CLL. Review of systems otherwise negative from a constitutional, HEENT, respiratory, cardiovascular, GI, genitourinary, musculoskeletal, skin, neurologic, psychiatric and hematologic system unless stated above. [facility] Medical History CLL (chronic lymphocytic leukemia) HTN (hypertension) Home Medications hydrochlorothiazide 12.5 mg PO DAILY 02/02/20 [History Last Taken 06/05/21] losartan 100 mg PO DAILY 02/02/20 [History Last Taken 06/05/21] metoprolol succinate 50 mg PO DAILY 07/02/20 [History Last Taken 06/05/21] dexamethasone 6 mg PO DAILY 06/06/21 [History Last Taken 06/05/21] doxazosin 4 mg PO DAILY 06/06/21 [History Last Taken 06/05/21] rosuvastatin [Crestor] 5 mg PO DAILY 06/06/21 [History Last Taken 06/05/21] Allergy/AdvReac Type Severity Reaction Status Date / Time No Known Allergies Allergy Verified 06/05/21 18:16 Family History Other CLL (chronic lymphocytic leukemia) Social History Smoking Status: Never smoker alcohol intake: current alcohol intake frequency: a few times a month ROS ROS Narrative See HPI Physical Exam Const alert, oriented x3 and no apparent distress General Appearance: cooperative HEENT normocephalic and head/scalp atraumatic Eyes PERRL, EOMs intact bilaterally, conjunctivae normal and no scleral icterus Neck no lymphadenopathy and no JVD Chest inspection of chest normal Chest: symmetrical chest wall rise; Negative for crepitus Resp normal respiratory effort Auscultation: rales bilateral base and 1/[address] way up and diminished lung sounds; Negative for rhonchi or wheezes Cardio regular rate, regular rhythm, S1 normal heart sound and S2 normal heart sound GI normal to inspection, nondistended, normoactive bowel sounds, soft to palpation, non-tender and non-distended Back/Spine no CVA tenderness Extremity normal to inspection Skin no rashes or lesions noted and no wounds Neuro Sensorium / Orientation: awake and alert Psych affect normal Medical Records Data Medical Nutrition Assessment Dietitian: Malnutrition Criteria Met Start: 06/06/21 10:19 Freq: Status: Active Protocol: Document 06/06/21 10:20 BP (Rec: 06/06/21 10:20 BP [id number]) Nutrition Malnutrition Evidence of Malnutrition Exists Yes Malnutrition (severe): Acute Illness/Injury Evidenced By Suboptimal Energy Intake ( Severe),Weight Loss (Severe) Clinical Problem Acute Disease or Injury Related Malnutrition Etiology Severe malnutrition in the context of Acute illness as evidenced by inadequate oral intake and weight loss due to signs/symptoms of COVID 19 Signs/Symptoms as evidenced by pt report consuming <50% energy intake x 1 1/2 weeks due to poor appetite, loss of sense of taste & smell, and 8% unintentional wt loss x 1 1/2 weeks. Status Active Problem Recommendation Dietitian Recommendations/Changes Continue Regular diet. Will provide 120 ml ensure enlive with meals and Magic cup w/ L&D for additional kristina/ protein if consumed. Lab / Micro Data Result Diagrams: 06/10/21 06:34 06/10/21 06:34 Labs: Laboratory Results - last 24 hr 06/07/21 11:34: Diff Path Review Reviewed 06/08/21 06:42: Diff Path Review Reviewed 06/09/21 06:20: Diff Path Review Reviewed 06/09/21 06:20: Vitamin B12 1470 H 06/10/21 06:34: WBC 151.0 H*, RBC 2.84 L, Hgb 9.3 L, Hct 30.8 L, MCV 108.5 H, MCH 32.7 H, MCHC 30.2 L, RDW Std Deviation 55.5 H, RDW Coeff of Aleksandar 14.4, Plt Count 413, MPV 9.9, Immature Gran % (Auto) 0.200, Neut % (Auto) 2.8 L, Lymph % (Auto) 76.0 H, [place] % (Auto) 21.0 H, Eos % (Auto) 0.0, Baso % (Auto) 0.0, Absolute Neuts (auto) 4.2, Absolute Lymphs (auto) 114.76 H, Nucleated RBC % 0, Differential Comment COMMENT, Diff Path Review May foll, Platelet Estimate ADEQUATE, Macrocytosis 1+, Retic Count 1.57 H, Immature Retic Fraction 13.50, Retic Hgb Equivalent 36.8 H 06/10/21 06:34: Sodium 134 L, Potassium 4.4, Chloride 102, Carbon Dioxide 29.0, Anion Gap 3 L, BUN 29 H, Creatinine 0.72, Estim Creat Clear Calc 117.43, Est GFR (MDRD) Af Amer 147, Est GFR (MDRD) Non-Af 121, BUN/Creatinine Ratio 40.1 H, Glucose 170 H, Calcium 8.6, Magnesium 2.5, Ferritin 2889 H, Total Bilirubin 1.40 H, GGT 168 H, AST 141 H, ALT 851 H, Alkaline Phosphatase 134 H, C-React Prot Ext Range 120.00 H, Total Protein 6.3 L, Albumin 2.0 L, Globulin 4.3 H, Albumin/Globulin Ratio 0.5 L, Folate 5.60 Rhythm Strip Rhythm Strip: Sinus Rhythm Rate: 76 Ectopy: None Charges/Coding Visit Charges Inpatient E&M: 16086 Init Hosp L3
--- NOTE | 2021-06-10 15:55 | RAD_ITS ---
STUDY: X-RAY CHEST REASON FOR EXAM: Male, 50 years old. Worsening hypoxia with Covid TECHNIQUE: Frontal view COMPARISON: 06/05/2021. FINDINGS: The lungs are expanded. Patchy infiltrates bilaterally with mild interval worsening. Normal size heart. Normal mediastinum and milton. Normal visualized pulmonary arteries. Normal visualized aortic arch and descending thoracic aorta. Normal visualized thoracic spine. Normal visualized ribs, clavicles, and shoulders. There is no demonstrated abnormality of the visualized soft tissue structures of the upper abdomen. RAD/Chest 1 View (Portable) IMPRESSION: Slight worsening bilateral patchy infiltrates since the previous study. Electronically Signed: Ernie Red DO at 16:27 EST Tel [phone], Service support ,
[2021-06-10] MEDS: Furosemide 20 MG/2 ML VIAL IV (16:31)
[2021-06-10] MEDS: Atorvastatin Calcium 10 MG Tablet PO (21:09)
[2021-06-11] VITALS (13 sets, daily range): BP systolic 109–131; BP diastolic 58–75; PULSE 65–98; RESP 16–24; TEMP 36.4–36.7; O2SAT 84–98
[2021-06-11] MEDS: Ipratropium/Albuterol Sulfate 3 ML AMPUL.NEB INHALATION ×6 (03:50→23:29)
--- NOTE | 2021-06-11 05:36 | CPS ---
Patient with compliant of decreased ability to get flow on AirVo. LOCKSTITCH FRONT ED[employer] SEWER squirted saline up both nostrils and had patient blow nose, which resulted in multiple bloody clots coming out of each nostril. Patient feels much better and can get the flow easier. AirVo flow was able to be reached after blockage was cleared. Patient FiO2 increased for recovery and took 5-10 mins to recover above 90% for pulse ox.
[2021-06-11 07:56] LABS: Hemoglobin 9.3 g/dL (13.0-16.5); Mean Corpuscular Volume 106.4 fL (80-94); Mean Platelet Vol. 9.7 fl (6.2-12.0); POSITIVE COUNT YES; POSITIVE DIFFERENTIAL YES; POSITIVE MORPHOLOGY YES; Platelet Count 372 K/mm3 (150-450); RBC Distribution Width CV 14.8 % (11.6-14.6); RBC Distribution Width SD 56.8 fl (35.1-43.9); Red Blood Count 2.82 M/mm3 (4.6-6.2)
[2021-06-11 08:13] LABS: Differential Indicated MANUAL DIFF; White Blood Count 179.9 K/mm3 (4.4-11.0)
[2021-06-11 08:26] LABS: ALB/GLOB Ratio 0.5 RATIO (0.9-2.4); AST(SGOT) 65 U/L (15-37); Alanine Aminotransfer ALT/SGPT 608 U/L (16-61); Albumin, Serum 2.1 g/dL (3.2-5.0); Alkaline Phosphatase 139 U/L (45-117); Anion Gap 5 (5-15); BUN 30 mg/dL (7-18); BUN/Creat Ratio 41.7 RATIO (10-20); Calcium,Total 8.5 mg/dL (8.5-10.1); Chloride 97 mmol/L (98-107); Creatinine, Serum 0.72 mg/dL (0.70-1.30); EST Glomerular Filtration Rate 122 mL/min (>60); Est Glom Filt Rate - Afr Amer 148 mL/min (>60); Estimated Creatinine Clearance 117.43 ml/min; Globulin 4.4 g/dL (2.2-4.2); Glucose 154 mg/dL (74-106); Potassium 4.3 mmol/L (3.5-5.1); Protein, Total 6.5 g/dL (6.4-8.2); Sodium Level 131 mmol/L (136-145)
--- NOTE | 2021-06-11 08:50 | PN.CC_ITS ---
Assessment & Plan Assessment/Plan (1) Acute respiratory failure with hypoxia: (2) Streptococcal pneumonia: (3) COVID-19 virus infection: (4) Chronic lymphocytic leukemia (CLL), B-cell: QUALIFIERS: Leukemia Active/Remission status: without remission Qualified Code(s): C91.10 - Chronic lymphocytic leukemia of B-cell type not having achieved remission PLAN: RECOMMENDATIONS: 1. Challenge with diuretics 2. Initiate nasal saline 3. Wean oxygen as tolerated 4. Encourage incentive spirometer, prone positioning and Acapella as tolerated 5. Continue Decadron through 06/16/2021. Not a candidate for remdesivir or baricitinib 6. Consider right upper quadrant ultrasound IMPRESSIONS: 1. Acute hypoxic respiratory failure secondary to COVID-19 Patient with progression of disease. Unfortunately, patient with delayed presentation so not a candidate for remdesivir. Patient with elevated liver enzymes making baricitinib a poor choice. Patient is appropriately on Decadron therapy. Patient is positive over 2 L through his hospitalization. Will continue to attempt attempt diuretic therapy as renal function allows. Wean oxygen as tolerated. Encourage prone positioning, incentive spirometer and Acapella as tolerated. Patient would be at higher risk for thrombotic complications. Chest x-ray appears to be slightly improved compared to previous. 2. CLL Patient seen by oncology and reviewed slides with pathology. Unclear if patient has had transformation at this time. Patient is on Decadron therapy leading to elevated white blood cell count. Would continue Decadron through the of possible. No indication for transfusion from my perspective. 3. Unvaccinated status/hyperlipidemia/hypertension/BPH/elevated LFTs Complicates care, management, recovery and prognosis. Likely okay to continue with baseline medications. May need to hold losartan and hydro chlorothiazide if patient develops acute kidney injury. Patient with elevated LFTs, alkaline phosphatase and GGT. Consider right upper quadrant ultrasound. Defer to primary service. Subjective Subjective Patient did well yesterday afternoon. However, patient developed epistaxis overnight leading to significant dyspnea. Patient did have to go up to 75% FiO2. Patient was found in the prone position and felt this was helping his overall condition. Objective Data Objective Data Vital Signs: Vital Signs Temp Pulse Resp BP Pulse Ox 36.6 C 84 22 H 131/75 H 94 06/11/21 03:27 06/11/21 07:33 06/11/21 07:33 06/11/21 03:27 06/11/21 07:33 Oxygen Flow Rate (L/min) [ 12 AMBULATING with Oxygen #1] Oxygen Flow Rate (L/min) 55 Oxygen Delivery Method Airvo Weight: 70.6 kg Body Mass Index (BMI) 23.6 Intake & Output: Intake and Output for Last 24 Hours 06/09/21 06/10/21 06/11/21 23:59 23:59 23:59 Intake Total 1200 / 1200 200 / 200 Output Total 500 / 500 Balance 700 / 700 200 / 200 Medical Nutrition Assessment Dietitian: Malnutrition Criteria Met Start: 06/06/21 10:19 Freq: Status: Active Protocol: Document 06/06/21 10:20 BP (Rec: 06/06/21 10:20 BP [id number]) Nutrition Malnutrition Evidence of Malnutrition Exists Yes Malnutrition (severe): Acute Illness/Injury Evidenced By Suboptimal Energy Intake ( Severe),Weight Loss (Severe) Clinical Problem Acute Disease or Injury Related Malnutrition Etiology Severe malnutrition in the context of Acute illness as evidenced by inadequate oral intake and weight loss due to signs/symptoms of COVID 19 Signs/Symptoms as evidenced by pt report consuming <50% energy intake x 1 1/2 weeks due to poor appetite, loss of sense of taste & smell, and 8% unintentional wt loss x 1 1/2 weeks. Status Active Problem Recommendation Dietitian Recommendations/Changes Continue Regular diet. Will provide 120 ml ensure enlive with meals and Magic cup w/ L&D for additional kristina/ protein if consumed. Lab / Micro Data Result Diagrams: 06/11/21 07:08 06/11/21 07:08 Labs: Laboratory Results - last 24 hr 06/07/21 11:34: Diff Path Review Reviewed 06/08/21 06:42: Diff Path Review Reviewed 06/09/21 06:20: Diff Path Review Reviewed 06/09/21 06:20: Vitamin B12 1470 H 06/11/21 07:08: WBC 179.9 H*, RBC 2.82 L, Hgb 9.3 L, Hct 30.0 L, MCV 106.4 H, MCH 33.0 H, MCHC 31.0 L, RDW Std Deviation 56.8 H, RDW Coeff of Aleksandar 14.8 H, Plt Count 372, MPV 9.7, Neut % (Auto) Not Reportable 06/11/21 07:08: Sodium 131 L, Potassium 4.3, Chloride 97 L, Carbon Dioxide 29.0, Anion Gap 5, BUN 30 H, Creatinine 0.72, Estim Creat Clear Calc 117.43, Est GFR (MDRD) Af Amer 148, Est GFR (MDRD) Non-Af 122, BUN/Creatinine Ratio 41.7 H, Glu cose 154 H, Calcium 8.5, Total Bilirubin 1.90 H, AST 65 H, ALT 608 H, Alkaline Phosphatase 139 H, Total Protein 6.5, Albumin 2.1 L, Globulin 4.4 H, Albumin/Globulin Ratio 0.5 L Micro: Microbiology 06/05/21 19:00 Blood Culture (Wb) - Anticubital Left Blood Culture - Final No growth in 5 days. 06/05/21 19:00 Blood Culture (Wb) - Anticubital Right Blood Culture - Final No growth in 5 days. 06/06/21 10:00 Sputum, Expectorated/Coughed Gram Stain - Final 06/06/21 10:00 Sputum, Expectorated/Coughed Respiratory Culture - Final Escherichia coli Staphylococcus aureus 06/06/21 02:35 Urine, Clean Catch Legionella Antigen - Final 06/06/21 02:35 Urine, Clean Catch Streptococcus pneumoniae Antigen (M - Final 06/06/21 02:05 Mucosa - Nasopharyngeal Respiratory Panel (PCR) - Final Radiography Diagnostic Testing: Radiology Impression Chest X-Ray 06/10/21 15:55 IMPRESSION: Slight worsening bilateral patchy infiltrates since the previous study. Electronically Signed: Ernie Red DO at 16:27 EST Tel [phone], Service support , Rhythm Strip Rhythm Strip: Sinus Rhythm Rate: 76 Ectopy: None Physical Exam Const alert, oriented x3 and no apparent distress Constitutional Narrative: In prone position General Appearance: cooperative HEENT normocephalic and head/scalp atraumatic Eyes PERRL, EOMs intact bilaterally, conjunctivae normal and no scleral icterus Neck no lymphadenopathy and no JVD Chest inspection of chest normal Chest: symmetrical chest wall rise; Negative for crepitus Resp normal respiratory effort Auscultation: rales bilateral base and 1/[address] up and diminished lung sounds; Negative for rhonchi or wheezes Cardio regular rate, regular rhythm, S1 normal heart sound and S2 normal heart sound GI normal to inspection, nondistended, normoactive bowel sounds, soft to palpation, non-tender and non-distended Back/Spine no CVA tenderness Extremity normal to inspection Skin no rashes or lesions noted and no wounds Neuro Sensorium / Orientation: awake and alert Psych affect normal Charges/Coding Visit Charges Inpatient E&M: 07641 Subs Hosp L3
[2021-06-11 09:39] LABS: Blast 7 % (0-0); Lymphocyte 82 % (19-41); Monocyte 1 % (0-10); Neutrophil-Band 2 % (0-5); Neutrophil-Segmented 8 % (47-70); Total Cells Counted 100 (MANUAL DIFF)
[2021-06-11 09:40] LABS: Platelet Estimate ADEQUATE (ADEQ); Red Cell Morphology NORM C+C NORMAL (NORM C&C)
[2021-06-11 09:44] LABS: Absolute Neutrophil Count 17.9 X10^3/uL (2.0-7.7)
[2021-06-11] MEDS: Sodium Chloride 0.65% 1 SPRAY SPRAY.BTL 2 SPRAY NASAL (11:00)
[2021-06-11] MEDS: Furosemide 40 MG Tablet PO (11:00)
[2021-06-11] MEDS: Metoprolol(XL)Succ 100 MG Tablet PO (11:01)
[2021-06-11] MEDS: dexAMETHasone 4 MG Tablet 6 MG PO (11:01)
[2021-06-11] MEDS: Enoxaparin 40 MG/0.4 ML Syringe SC ×2 (11:01→22:08)
[2021-06-11] MEDS: Losartan Potassium 100 MG Tablet PO (11:02)
[2021-06-11] MEDS: Doxazosin 4 MG Tablet PO (11:02)
[2021-06-11] MEDS: guaiFENesin 1,200 MG Tablet 1200 MG PO ×2 (11:02→22:08)
--- NOTE | 2021-06-11 11:45 | CASEMGMT ---
Social Work Note KATIE received call from pt's Heather requesting call back. KATIE placed a call to Heather. Heather had questions regarding visitation policy. KATIE informed Heather that it is hospital policy to not allow visitors for COVID pt's unless there is a decline. Heather states she has had COVID and she has been vaccinated, states pt is not getting the care that he needs, pt is not eating, pt is not doing the exercises but if she was at [facility] then pt would do the exercises. KATIE again informed Heather that it is hospital policy to not allow visitors for COVID+ pt's unless pt's decline. Heather states that's a dumb rule. Heather states that she thinks pt is depressed and getting more depressed. Heather states that pt is not eating and she would like a nutrition consult. Heather also states that pt's nasal passages get clogged and air can't get through his nasal passages then and requests RN to assist pt with clearing nasal passages. KATIE informed Heather that any medical questions/concerns need to be directed to pt's RN but that this worker would also relay her concerns to the RN. KATIE updated RN. KATIE will meet with pt regarding his depression as time allows. Aleisha Ma FOOD CHEMIST, INSTRUMENT REPAIR TECHNICIAN
--- NOTE | 2021-06-11 13:05 | PCM.PN.HOSP ---
Subjective Subjective Patient had a small clotted dried nasal bleed. Not measured drop in hemoglobin. From 10.3-9.3 stable for last 3 days Objective Data Objective Data Vital Signs: Vital Signs Temp Pulse Resp BP Pulse Ox 98.0 F 91 22 H 114/67 92 06/11/21 09:30 06/11/21 11:09 06/11/21 11:09 06/11/21 09:30 06/11/21 11:09 Oxygen Flow Rate (L/min) [ 12 AMBULATING with Oxygen #1] Oxygen Flow Rate (L/min) 55 Oxygen Delivery Method Airvo Weight: 155 lb 10.342 oz Body Mass Index (BMI) 23.6 Intake & Output: Intake and Output for Last 24 Hours 06/09/21 06/10/21 06/11/21 23:59 23:59 23:59 Intake Total 1200 / 1200 200 / 200 Output Total 500 / 500 Balance 700 / 700 200 / 200 Medical Nutrition Assessment Dietitian: Malnutrition Criteria Met Start: 06/06/21 10:19 Freq: Status: Active Protocol: Document 06/11/21 11:58 RMA (Rec: 06/11/21 11:58 RMA [id number]) Nutrition Malnutrition Evidence of Malnutrition Exists Yes Malnutrition (severe): Acute Illness/Injury Evidenced By Suboptimal Energy Intake ( Severe),Weight Loss (Severe) Clinical Problem Acute Disease or Injury Related Malnutrition Etiology Severe malnutrition in the context of Acute illness as evidenced by inadequate oral intake and decreased appetite due to signs/symptoms of COVID 19 including loss of taste/ smell Signs/Symptoms as evidenced by pt report consuming <50% energy intake x 1 1/2 weeks due to poor appetite, loss of sense of taste & smell, and 8% unintentional wt loss x 1 1/2 weeks. Status Active Problem Recommendation Dietitian Recommendations/Changes Continue Regular diet, 120 ml ensure enlive TID with meals and Magic cup w/ L&D for additional kristina/protein if consumed. Adjust ONS as needed to optimize oral intake and prevent further wt loss. Lab / Micro Data Result Diagrams: 06/11/21 07:08 06/11/21 07:08 Labs: Laboratory Results - last 24 hr 06/07/21 11:34: Diff Path Review Reviewed 06/08/21 06:42: Diff Path Review Reviewed 06/09/21 06:20: Diff Path Review Reviewed 06/11/21 07:08: WBC 179.9 H*, RBC 2.82 L, Hgb 9.3 L, Hct 30.0 L, MCV 106.4 H, MCH 33.0 H, MCHC 31.0 L, RDW Std Deviation 56.8 H, RDW Coeff of Aleksandar 14.8 H, Plt Count 372, MPV 9.7, Neut % (Auto) Not Reportable, Absolute Neuts (auto) 17.9 H, Absolute Lymphs (auto) 147.50 H, Total Counted 100, Neutrophils % (Manual) 8 L, Band Neutrophils % 2, Lymphocytes % (Manual) 82 H*, Monocytes % (Manual) 1, Blast Cells % 7 H*, Diff Path Review December, Platelet Estimate ADEQUATE, RBC Morphology NORM C+C 06/11/21 07:08: Sodium 131 L, Potassium 4.3, Chloride 97 L, Carbon Dioxide 29.0, Anion Gap 5, BUN 30 H, Creatinine 0.72, Estim Creat Clear Calc 117.43, Est GFR (MDRD) Af Amer 148, Est GFR (MDRD) Non-Af 122, BUN/Creatinine Ratio 41.7 H, Glucose 154 H, Calcium 8.5, Total Bilirubin 1.90 H, AST 65 H, ALT 608 H, Alkaline Phosphatase 139 H, Total Protein 6.5, Albumin 2.1 L, Globulin 4.4 H, Albumin/Globulin Ratio 0.5 L Micro: Microbiology 06/05/21 19:00 Blood Culture (Wb) - Anticubital Left Blood Culture - Final No growth in 5 days. 06/05/21 19:00 Blood Culture (Wb) - Anticubital Right Blood Culture - Final No growth in 5 days. 06/06/21 10:00 Sputum, Expectorated/Coughed Gram Stain - Final 06/06/21 10:00 Sputum, Expectorated/Coughed Respiratory Culture - Final Escherichia coli Staphylococcus aureus 06/06/21 02:35 Urine, Clean Catch Legionella Antigen - Final 06/06/21 02:35 Urine, Clean Catch Streptococcus pneumoniae Antigen (M - Final 06/06/21 02:05 Mucosa - Nasopharyngeal Respiratory Panel (PCR) - Final Radiography Diagnostic Testing: Radiology Impression Chest X-Ray 06/10/21 15:55 IMPRESSION: Slight worsening bilateral patchy infiltrates since the previous study. Electronically Signed: Ernie Red DO at 16:27 EST Tel [phone], Service support , Rhythm Strip Rhythm Strip: Sinus Rhythm Rate: 76 Ectopy: None Physical Exam Narrative On AIRVO. Physical exam General: Alert, Oriented x3, Cooperative HEENT: Atraumatic, PERRLA, EOMI, Normocephalic Oral: No Gingival or Mucosal Lesions/ Ulcerations Neck: Supple, No JVD, Negative Carotid Bruits Lungs: Air entry diminished in bilateral lung bases. Severe hypoxia. Mild tachypnea. Mild bibasilar crepitations. Cardiovascular: Regular rate, Regular Rhythm, Normal S1, Normal S2, No murmurs Abdomen: Bowel Sounds Present, Soft, Non Tender, Non-Distended : No renal angle tenderness. No suprapubic tenderness. Extremities: No edema, Capillary Refill Less than 3 Seconds Skin: No rashes, No breakdown Musculoskeletal: No Tenderness to Palpation of Joints or Extremities Neurological: Cranial nerves II-XII grossly intact, DTR 2+/4 and Symmetrical, Neuro grossly intact Psych/Mental Status: Normal Affect, Appropriate. Assessment & Plan Assessment/Plan (1) Acute respiratory failure with hypoxia: (2) Streptococcal pneumonia: (3) COVID-19 virus infection: (4) Acute hyponatremia: PLAN: 1. Acute hypoxic respiratory failure due to bilateral COVID-19 pneumonia with bacterial superinfection 06/07: Patient is on Airvo. I discussed with the patient regarding intubation ventilator if needed at last resort and he said he is okay with the ventilator as last resort but does not like to be intubated if it can be avoided. Talked with the engagement quality consultant. Currently on NIPPV. COVID-19 PCR positive. 06/08: Mild subjective improvement of respiratory status. Temperature 102.5 ?F on 06/07 06/09: Patient on nasal cannula. On NIPPV. 06/10: Patient on 12 L of oxygen. Formal engagement quality consultant/ice cream chef consult requested. No fever for last 72 hours. Continue cefepime. Discussed with ID 06/11: On AIRVO. Patient on nasal saline spray. On Lovenox 40 mg subcu twice daily. Full therapeutic dose avoided as patient had mild epistaxis and hemoglobin is on lower side. 2. Possible pneumococcal pneumonia: Patient is on ceftriaxone and azithromycin. Urinary antigens are negative. Patient has fever 101 Fahrenheit. Azithromycin discontinued 06/07: Sputum culture growing gram-negative rods lactose fairing man and patient is having fever therefore will continue antibiotic. 06/09: Final sputum culture shows E. coli and MSSA. 3. COVID-19 pneumonia, acute: Patient is unvaccinated. His had vaccine. Patient had 3 days of dexamethasone before admission. Patient out of window for remdesivir. Does not seem to be candidate for baricitinib as patient has CLL immunocompromised and biologic will not be a good option. 06/07: Discussed with ID and currently does not seem to do anything different. 06/08: Not candidate for baricitinib as patient is immunocompromised host and elevated ALT although slight improvement in ALT. Inflammatory markers are elevated including D-dimer, fibrinogen and CRP. Procalcitonin 0.32, better than before. 4. Hyponatremia Probably due to HCTZ. HCTZ on hold. Sodium 132. Patient had IV fluid without significant improvement in serum sodium. 5. Hypertension Hold HCTZ. Continue with losartan and metoprolol succinate 6. 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 Solomon. He said his WC count was in 50,000s inmate 2020 but is slowly getting higher. Currently 95.6 thousand. ALC 72.54 thousand. ANC 2.[address] Solomon patient did not had any indication for CLL chemotherapy but looks like he might need after he recovers from COVID-19. Patient had refused flu vaccine in the past. His is vaccinated. Patient was distressed about need for vaccine as patient is immunocompromised and nonfunctional lymphocytes. Currently does not need any specific treatment for CLL in regard to COVID-19 infection. 06/08: Progressive increase in WBC count 108,000 mainly lymphocytosis. Blast cells 29%, myelocytes 5%. Concern for tumor lysis syndrome therefore uric acid and electrolytes were ordered. LDH 341. CK 26. K4.6. Phosphorus 2.9. Uric acid 1.9. 06/08: Progressive increase WBC count, lymphocytosis and blast cells. Discussed with Dr. Solomon and consult placed. 06/10: Progressive increase in WBC count 1 51,000. ALC 114,000. I had several rounds of talk with oncologist Dr. Solomon, pathologist, patient's and patient himself. Slide was removed by pathologist and it seems atypical lymphocytes and flow cytometry was ordered. Patient's requested Dr. Solomon and myself for transfer to [facility] with anticipation that Covid can get worse and/or worsening of WBC count. I called [facility], [facility] and they said they are not accepting patient unless if Covid patient requires transplant or ECMO or leukapheresis for blast crisis. I called the and left a voice message to call back. 06/11: Further increase in leukocytosis mainly lymphocytosis 82%. Blast cells 7% increase. Discussed with oncologist Dr. Zurita and he looked at the smear. Absolute lymphocytosis. Low-grade lymphoproliferative disorder. Macrocytic anemia. Flow cytometry might take 1 week. Hemoglobin 9.3. B12 high. Folate normal. Ferritin high probably inflammatory. 7. VTE prophylaxis on Lovenox 40 mg subcu twice daily Total time of the visit including total time spent in counseling or coordination of care, (more than 50% of the total time, spent in obtaining medical information from nurses and other ancillary care providers,explaining to the patient about labs, imaging, diagnosis and management), discussion with consultants ID and oncologist Dr. Solomon, the pathologist review of labs and imaging is 30 minutes. Charges/Coding Visit Charges Inpatient E&M: 50527 Subs Hosp L2
[2021-06-11 14:45] LABS: Pathologist Review Reviewed
[2021-06-11] MEDS: 0.9% Saline Lock 10 ML Syringe IV (15:36)
--- NOTE | 2021-06-11 15:53 | NURSING ---
THIS NURSE STAYED IN ROOM FOR [address] ALCALA SPOKE TO AND SON ABOUT POSSIBLE SURGERY. NEITHER COULD STAY FOCUSED ABOUT THE PATIENT AND HER POSSIBLY HAVING SURGERY, THEY KEPT VEERING AWAY FROM THE CONVERSATION AND SPOKE OF THEMSELVES OR WHAT LED UP TO THIS POINT FOR PT.
[2021-06-11] MEDS: Atorvastatin Calcium 10 MG Tablet PO (22:08)
[2021-06-12] VITALS (12 sets, daily range): BP systolic 99–123; BP diastolic 53–72; PULSE 67–87; RESP 16–20; TEMP 36–36.7; O2SAT 90–95
[2021-06-12] MEDS: Ipratropium/Albuterol Sulfate 3 ML AMPUL.NEB INHALATION ×6 (03:28→23:55)
[2021-06-12 07:37] LABS: Hematocrit 26.2 % (40-54); Mean Corp Hgb Conc 30.5 g/dL (32-36); Mean Corpuscular Hgb 32.9 pg (27.0-32.0); Mean Corpuscular Volume 107.8 fL (80-94); Mean Platelet Vol. 9.7 fl (6.2-12.0); POSITIVE COUNT YES; POSITIVE DIFFERENTIAL YES; POSITIVE MORPHOLOGY YES; Platelet Count 317 K/mm3 (150-450); RBC Distribution Width CV 15.3 % (11.6-14.6); Red Blood Count 2.43 M/mm3 (4.6-6.2)
[2021-06-12 07:48] LABS: White Blood Count 197.2 K/mm3 (4.4-11.0)
[2021-06-12 07:49] LABS: Differential Indicated MANUAL DIFF
[2021-06-12 07:53] LABS: ALB/GLOB Ratio 0.5 RATIO (0.9-2.4); AST(SGOT) 46 U/L (15-37); Alanine Aminotransfer ALT/SGPT 441 U/L (16-61); Alkaline Phosphatase 136 U/L (45-117); Anion Gap 6 (5-15); BUN 31 mg/dL (7-18); BUN/Creat Ratio 51.8 RATIO (10-20); Calcium,Total 8.2 mg/dL (8.5-10.1); Chloride 100 mmol/L (98-107); EST Glomerular Filtration Rate 151 mL/min (>60); Est Glom Filt Rate - Afr Amer 183 mL/min (>60); Estimated Creatinine Clearance 140.92 ml/min; Globulin 4.1 g/dL (2.2-4.2); Glucose 157 mg/dL (74-106); Potassium 4.6 mmol/L (3.5-5.1); Protein, Total 6.1 g/dL (6.4-8.2); Sodium Level 134 mmol/L (136-145)
[2021-06-12] MEDS: dexAMETHasone 4 MG Tablet 6 MG PO (08:44)
[2021-06-12] MEDS: Metoprolol(XL)Succ 100 MG Tablet PO (08:45)
[2021-06-12] MEDS: Enoxaparin 40 MG/0.4 ML Syringe SC ×2 (08:45→21:16)
[2021-06-12] MEDS: guaiFENesin 1,200 MG Tablet 1200 MG PO ×2 (08:46→21:17)
[2021-06-12 09:15] LABS: Blast 6 % (0-0); Lymphocyte 80 % (19-41); Myelocyte 4 % (0-0); Neutrophil-Segmented 10 % (47-70); Platelet Estimate ADEQUATE (ADEQ); Total Cells Counted 100 (MANUAL DIFF)
[2021-06-12 09:16] LABS: Absolute Neutrophil Count 19.7 X10^3/uL (2.0-7.7); Red Cell Morphology NORM C+C NORMAL (NORM C&C)
[2021-06-12 09:17] LABS: Absolute Lymphocyte Count 157.79 X10^3/uL (0.83-4.51)
--- NOTE | 2021-06-12 11:23 | CASEMGMT ---
Social Work Note SW in to speak with pt and check in with pt and provide support. SW introduced self and role at [facility]. Pt is alert and orientated, engages appropriately in conversation. Pt states that he is doing better today, in better spirits. Pt states that his is coming to see him this Thursday and that is giving him something to look forward to. Pt states that he is eating and doing his exercises. Pt denied any Mental Health History, specifically denied any anxiety or depression. Pt denied any additional questions or concerns at this time. SW offered support to pt throughout conversation. Aleisha Ma FILENET ADMIN, ACCESS SERVICES LIBRARIAN
[2021-06-12 12:44] LABS: Pathologist Review Reviewed
[2021-06-12 12:44] LABS: Pathologist Review Reviewed
--- NOTE | 2021-06-12 15:01 | PN.CC_ITS ---
Assessment & Plan Assessment/Plan (1) Acute respiratory failure with hypoxia: (2) Streptococcal pneumonia: (3) COVID-19 virus infection: (4) Chronic lymphocytic leukemia (CLL), B-cell: QUALIFIERS: Leukemia Active/Remission status: without remission Qualified Code(s): C91.10 - Chronic lymphocytic leukemia of B-cell type not having achieved remission PLAN: RECOMMENDATIONS: 1. Challenge with diuretics as renal function allows 2. Continue nasal saline 3. Wean oxygen as tolerated 4. Encourage incentive spirometer, prone positioning and Acapella as tolerated 5. Continue Decadron through 06/16/2021. Not a candidate for remdesivir or baricitinib given liver enzymes 6. Consider right upper quadrant ultrasound IMPRESSIONS: 1. Acute hypoxic respiratory failure secondary to COVID-19 Patient with progression of disease. Unfortunately, patient with delayed presentation so not a candidate for remdesivir. Patient with elevated liver enzymes making baricitinib a poor choice. Patient is appropriately on Decadron therapy. Patient was positive over 2 L through his hospitalization. Will continue to attempt attempt diuretic therapy as renal function allows. Wean oxygen as tolerated. Encourage prone positioning, incentive spirometer and Acapella as tolerated. Patient would be at higher risk for thrombotic complications. Chest x-ray appears to be slightly improved compared to previous. Patient appears to be responding well to nasal saline. 2. CLL Patient seen by oncology and reviewed slides with pathology. Unclear if patient has had transformation at this time. Patient is on Decadron therapy leading to elevated white blood cell count. Would continue Decadron through the of possible. No indication for transfusion from my perspective. 3. Unvaccinated status/hyperlipidemia/hypertension/BPH/elevated LFTs Complicates care, management, recovery and prognosis. Likely okay to continue with baseline medications. May need to hold losartan and hyd rochlorothiazide if patient develops acute kidney injury. Patient with elevated LFTs, alkaline phosphatase and GGT. Consider right upper quadrant ultrasound. Defer to primary service. Patient is not reporting any clinical findings consistent with cholecystitis Subjective Subjective The patient did well overnight. Patient states the nasal saline has been significantly helpful in dealing with sinus congestion. Patient has been proning during the day. Patient feels subjectively much improved compared to yesterday. Objective Data Objective Data Vital Signs: Vital Signs Temp Pulse Resp BP Pulse Ox 36.7 C 87 20 H 112/58 L 91 06/12/21 11:00 06/12/21 11:14 06/12/21 11:14 06/12/21 11:00 06/12/21 11:14 Oxygen Flow Rate (L/min) [ 12 AMBULATING with Oxygen #1] Oxygen Flow Rate (L/min) 55 Oxygen Delivery Method Airvo Weight: 70.6 kg Body Mass Index (BMI) 23.6 Intake & Output: Intake and Output for Last 24 Hours 06/10/21 06/11/21 06/12/21 23:59 23:59 23:59 Intake Total 1200 / 1200 650 / 650 200 / 200 Output Total 500 / 500 700 / 700 800 / 800 Balance 700 / 700 -50 / -50 -600 / -600 Medical Nutrition Assessment Dietitian: Malnutrition Criteria Met Start: 06/06/21 10:19 Freq: Status: Active Protocol: Document 06/11/21 11:58 RMA (Rec: 06/11/21 11:58 RMA [id number]) Nutrition Malnutrition Evidence of Malnutrition Exists Yes Malnutrition (severe): Acute Illness/Injury Evidenced By Suboptimal Energy Intake ( Severe),Weight Loss (Severe) Clinical Problem Acute Disease or Injury Related Malnutrition Etiology Severe malnutrition in the context of Acute illness as evidenced by inadequate oral intake and decreased appetite due to signs/symptoms of COVID 19 including loss of taste/ smell Signs/Symptoms as evidenced by pt report consuming <50% energy intake x 1 1/2 weeks due to poor appetite, loss of sense of taste & smell, and 8% unintentional wt loss x 1 1/2 weeks. Status Active Problem Recommendation Dietitian Recommendations/Changes Continue Regular diet, 120 ml ensure enlive TID with meals and Magic cup w/ L&D for additional kristina/protein if consumed. Adjust ONS as needed to optimize oral intake and prevent further wt loss. Lab / Micro Data Result Diagrams: 06/12/21 07:09 06/12/21 07:09 Labs: Laboratory Results - last 24 hr 06/11/21 07:08: Diff Path Review Reviewed 06/12/21 07:09: WBC 197.2 H*, RBC 2.43 L, Hgb 8.0 L, Hct 26.2 L, MCV 107.8 H, MCH 32.9 H, MCHC 30.5 L, RDW Std Deviation 57.0 H, RDW Coeff of Aleksandar 15.3 H, Plt Count 317, MPV 9.7, Neut % (Auto) Not Reportable, Absolute Neuts (auto) 19.7 H, Absolute Lymphs (auto) 157.79 H, Total Counted 100, Neutrophils % (Manual) 10 L, Lymphocytes % (Manual) 80 H*, Myelocytes % 4 H, Blast Cells % 6 H*, Diff Path Review Reviewed, Platelet Estimate ADEQUATE, RBC Morphology NORM C+C 06/12/21 07:09: Sodium 134 L, Potassium 4.6, Chloride 100, Carbon Dioxide 28.0, Anion Gap 6, BUN 31 H, Creatinine 0.60 L, Estim Creat Clear Calc 140.92, Est GFR (MDRD) Af Amer 183, Est GFR (MDRD) Non-Af 151, BUN/Creatinine Ratio 51.8 H, Glucose 157 H, Calcium 8.2 L, Total Bilirubin 2.10 H, AST 46 H, ALT 441 H, Alkaline Phosphatase 136 H, Total Protein 6.1 L, Albumin 2.0 L, Globulin 4.1, Albumin/Globulin Ratio 0.5 L Micro: Microbiology 06/05/21 19:00 Blood Culture (Wb) - Anticubital Left Blood Culture - Final No growth in 5 days. 06/05/21 19:00 Blood Culture (Wb) - Anticubital Right Blood Culture - Final No growth in 5 days. 06/06/21 10:00 Sputum, Expectorated/Coughed Gram Stain - Final 06/06/21 10:00 Sputum, Expectorated/Coughed Respiratory Culture - Final Escherichia coli Staphylococcus aureus 06/06/21 02:35 Urine, Clean Catch Legionella Antigen - Final 06/06/21 02:35 Urine, Clean Catch Streptococcus pneumoniae Antigen (M - Final 06/06/21 02:05 Mucosa - Nasopharyngeal Respiratory Panel (PCR) - Final Rhythm Strip Rhythm Strip: Sinus Rhythm Rate: 76 Ectopy: None Physical Exam Const alert, oriented x3 and no apparent distress Constitutional Narrative: In prone position. Much better spirits today General Appearance: cooperative HEENT normocephalic and head/scalp atraumatic Eyes PERRL, EOMs intact bilaterally, conjunctivae normal and no scleral icterus Neck no lymphadenopathy and no JVD Chest inspection of chest normal Chest: symmetrical chest wall rise; Negative for crepitus Resp normal respiratory effort Auscultation: rales bilateral base and 1/3 way up and diminished lung sounds; Negative for rhonchi or wheezes Cardio regular rate, regular rhythm, S1 normal heart sound and S2 normal heart sound GI normal to inspection, nondistended, normoactive bowel sounds, soft to palpation, non-tender and non-distended Back/Spine no CVA tenderness Extremity normal to inspection Skin no rashes or lesions noted and no wounds Neuro Sensorium / Orientation: awake and alert Psych affect normal Charges/Coding Visit Charges Inpatient E&M: 09132 Subs Hosp L2
--- NOTE | 2021-06-12 18:35 | PN.HOSP_ITS ---
Subjective Subjective Feels much better than when he came in and feels better than yesterday. Slowly coming down on his FiO2. He did have a jump in his white blood cell count likely from the Decadron Objective Data Objective Data Vital Signs: Vital Signs Temp Pulse Resp BP Pulse Ox 98.0 F 80 18 123/65 H 95 06/12/21 15:59 06/12/21 15:59 06/12/21 15:59 06/12/21 15:59 06/12/21 15:59 Oxygen Flow Rate (L/min) [ 12 AMBULATING with Oxygen #1] Oxygen Flow Rate (L/min) 55 Oxygen Delivery Method Airvo Weight: 155 lb 10.342 oz Body Mass Index (BMI) 23.6 Intake & Output: Intake and Output for Last 24 Hours 06/11/21 06/12/21 06/13/21 03:59 03:59 03:59 Intake Total 1200 / 1200 650 / 650 200 / 200 Output Total 500 / 500 700 / 700 800 / 800 Balance 700 / 700 -50 / -50 -600 / -600 Medical Nutrition Assessment Dietitian: Malnutrition Criteria Met Start: 06/06/21 10:19 Freq: Status: Active Protocol: Document 06/11/21 11:58 RMA (Rec: 06/11/21 11:58 RMA [id number]) Nutrition Malnutrition Evidence of Malnutrition Exists Yes Malnutrition (severe): Acute Illness/Injury Evidenced By Suboptimal Energy Intake ( Severe),Weight Loss (Severe) Clinical Problem Acute Disease or Injury Related Malnutrition Etiology Severe malnutrition in the context of Acute illness as evidenced by inadequate oral intake and decreased appetite due to signs/symptoms of COVID 19 including loss of taste/ smell Signs/Symptoms as evidenced by pt report consuming <50% energy intake x 1 1/2 weeks due to poor appetite, loss of sense of taste & smell, and 8% unintentional wt loss x 1 1/2 weeks. Status Active Problem Recommendation Dietitian Recommendations/Changes Continue Regular diet, 120 ml ensure enlive TID with meals and Magic cup w/ L&D for additional kristina/protein if consumed. Adjust ONS as needed to optimize oral intake and prevent further wt loss. Lab / Micro Data Result Diagrams: 06/12/21 07:09 06/12/21 07:09 Labs: Laboratory Results - last 24 hr 06/11/21 07:08: Diff Path Review Reviewed 06/12/21 07:09: WBC 197.2 H*, RBC 2.43 L, Hgb 8.0 L, Hct 26.2 L, MCV 107.8 H, MCH 32.9 H, MCHC 30.5 L, RDW Std Deviation 57.0 H, RDW Coeff of Aleksandar 15.3 H, Plt Count 317, MPV 9.7, Neut % (Auto) Not Reportable, Absolute Neuts (auto) 19.7 H, Absolute Lymphs (auto) 157.79 H, Total Counted 100, Neutrophils % (Manual) 10 L, Lymphocytes % (Manual) 80 H*, Myelocytes % 4 H, Blast Cells % 6 H*, Diff Path Review Reviewed, Platelet Estimate ADEQUATE, RBC Morphology NORM C+C 06/12/21 07:09: Sodium 134 L, Potassium 4.6, Chloride 100, Carbon Dioxide 28.0, Anion Gap 6, BUN 31 H, Creatinine 0.60 L, Estim Creat Clear Calc 140.92, Est GFR (MDRD) Af Amer 183, Est GFR (MDRD) Non-Af 151, BUN/Creatinine Ratio 51.8 H, Glucose 157 H, Calcium 8.2 L, Total Bilirubin 2.10 H, AST 46 H, ALT 441 H, Alkaline Phosphatase 136 H, Total Protein 6.1 L, Albumin 2.0 L, Globulin 4.1, Albumin/Globulin Ratio 0.5 L Micro: Microbiology 06/05/21 19:00 Blood Culture (Wb) - Anticubital Left Blood Culture - Final No growth in 5 days. 06/05/21 19:00 Blood Culture (Wb) - Anticubital Right Blood Culture - Final No growth in 5 days. 06/06/21 10:00 Sputum, Expectorated/Coughed Gram Stain - Final 06/06/21 10:00 Sputum, Expectorated/Coughed Respiratory Culture - Final Escherichia coli Staphylococcus aureus 06/06/21 02:35 Urine, Clean Catch Legionella Antigen - Final 06/06/21 02:35 Urine, Clean Catch Streptococcus pneumoniae Antigen (M - Final 06/06/21 02:05 Mucosa - Nasopharyngeal Respiratory Panel (PCR) - Final Rhythm Strip Rhythm Strip: Sinus Rhythm Rate: 76 Ectopy: None Physical Exam Const alert, oriented x3 and no apparent distress General Appearance: cooperative HEENT normocephalic and moist oral mucous membranes Eyes PERRL, EOMs intact bilaterally and conjunctivae normal Neck supple and no JVD Resp normal respiratory effort, no retractions, no use of accessory muscles and clear to auscultation bilaterally Auscultation: Negative for crackles, rales, rhonchi or wheezes Cardio regular rate, regular rhythm, S1 normal heart sound, S2 normal heart sound and no murmurs GI soft to palpation, non-tender and non-distended; Negative for hepatosplenomegaly Extremity no clubbing, cyanosis or edema Skin no rashes or lesions noted Neuro no focal motor deficits and no sensory deficits noted Psych affect normal Appearance: appropriate Assessment & Plan Assessment/Plan (1) Acute respiratory failure with hypoxia: (2) Streptococcal pneumonia: (3) COVID-19 virus infection: (4) Acute hyponatremia: PLAN: 1. Acute hypoxic respiratory failure due to bilateral COVID-19 pneumonia with E. coli and MSSA pneumonia 06/07: Patient is on Airvo. I discussed with the patient regarding intubation ventilator if needed at last resort and he said he is okay with the ventilator as last resort but does not like to be intubated if it can be avoided. Talked with the wearing apparel assembler. Currently on NIPPV. COVID-19 PCR positive. 06/08: Mild subjective improvement of respiratory status. Temperature 102.5 ?F on 06/07 06/09: Patient on nasal cannula. On NIPPV. 06/10: Patient on 12 L of oxygen. Formal wearing apparel assembler/traffic workforce representative consult requested. No fever for last 72 hours. Continue cefepime. Discussed with ID 06/11: On AIRVO. Patient on nasal saline spray. On Lovenox 40 mg subcu twice daily. Full therapeutic dose avoided as patient had mild epistaxis and hemoglobin is on lower side. 06/12/2021: Seems to be stabilized at the moment, will continue with her as needed Lasix secondary to crackles as well as cefepime. Continue with Decadron 2. Possible pneumococcal pneumonia: Patient is on ceftriaxone and azithromycin. Urinary antigens are negative. Patient has fever 101 Fahrenheit. 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 06/09: Final sputum culture shows E. coli and MSSA. 3. COVID-19 pneumonia, acute: Patient is unvaccinated. His had vaccine. Patient had 3 days of dexamethasone before admission. Patient out of window for remdesivir. Does not seem to be candidate for baricitinib as patient has CLL immunocompromised and biologic will not be a good option. 06/07: Discussed with ID and currently does not seem to do anything different. 06/08: Not candidate for baricitinib as patient is immunocompromised host and elevated ALT although slight improvement in ALT. Inflammatory markers are eleva kylah including D-dimer, fibrinogen and CRP. Procalcitonin 0.32, better than before. 4. Hypertension Hold HCTZ. Continue with losartan and metoprolol succinate 5. 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 Solomon. He said his WC count was in 50,000s inmate 2020 but is slowly getting higher. Currently 95.6 thousand. ALC 72.54 thousand. ANC 2.[address] Solomon patient did not had any indication for CLL chemotherapy but looks like he might need after he recovers from COVID-19. Patient had refused flu vaccine in the past. His is vaccinated. Patient was distressed about need for vaccine as patient is immunocompromised and nonfunctional lymphocytes. Currently does not need any specific treatment for CLL in regard to COVID-19 infection. 06/08: Progressive increase in WBC count 108,000 mainly lymphocytosis. Blast cells 29%, myelocytes 5%. Concern for tumor lysis syndrome therefore uric acid and electrolytes were ordered. LDH 341. CK 26. K4.6. Phosphorus 2.9. Uric acid 1.9. 06/08: Progressive increase WBC count, lymphocytosis and blast cells. Discussed with Dr. Solomon and consult placed. 06/10: Progressive increase in WBC count 1 51,000. ALC 114,000. I had several rounds of talk with oncologist Dr. Solomon, pathologist, patient's and patient himself. Slide was removed by pathologist and it seems atypical lymphocytes and flow cytometry was ordered. Patient's requested Dr. Solomon and myself for transfer to [facility] with anticipation that Covid can get worse and/or worsening of WBC count. I called [facility], [facility] and they said they are not accepting patient unless if Covid patient requires transplant or ECMO or leukapheresis for blast crisis. I called the and left a voice message to call back. 06/11: Further increase in leukocytosis mainly lymphocytosis 82%. Blast cells 7% increase. Discussed with oncologist Dr. Zurita and he looked at the smear. Absolute lymphocytosis. Low-grade lymphoproliferative disorder. Macrocytic anemia. Flow cytometry might take 1 week. Hemoglobin 9.3. B12 high. Folate normal. Ferritin high probably inflammatory. DVT: Lovenox Charges/Coding Visit Charges Inpatient E&M: 12018 Subs Hosp L2
[2021-06-12] MEDS: Atorvastatin Calcium 10 MG Tablet PO (21:17)
[2021-06-13] VITALS (10 sets, daily range): BP systolic 97–117; BP diastolic 52–66; PULSE 66–85; RESP 18–20; TEMP 36.1–36.7; O2SAT 92–98
--- NOTE | 2021-06-13 00:49 | NURSING ---
PT resting in bed prone position
[2021-06-13] MEDS: Ipratropium/Albuterol Sulfate 3 ML AMPUL.NEB INHALATION ×5 (03:44→22:32)
[2021-06-13] MEDS: Oxymetazoline 0.05% 1 SPRAY SPRAY.BTL 2 SPRAY NASAL ×3 (05:55→20:44)
[2021-06-13] MEDS: Sodium Chloride 0.65% 1 SPRAY SPRAY.BTL 2 SPRAY NASAL (05:55)
[2021-06-13 08:01] LABS: Hematocrit 26.3 % (40-54); Hemoglobin 7.8 g/dL (13.0-16.5); Mean Corp Hgb Conc 29.7 g/dL (32-36); Mean Corpuscular Hgb 32.6 pg (27.0-32.0); POSITIVE COUNT YES; POSITIVE DIFFERENTIAL YES; POSITIVE MORPHOLOGY YES; Platelet Count 355 K/mm3 (150-450); RBC Distribution Width CV 17.1 % (11.6-14.6); RBC Distribution Width SD 59.6 fl (35.1-43.9); Red Blood Count 2.39 M/mm3 (4.6-6.2)
[2021-06-13 08:13] LABS: Differential Indicated MANUAL DIFF; White Blood Count 225.2 K/mm3 (4.4-11.0)
[2021-06-13 08:41] LABS: ALB/GLOB Ratio 0.5 RATIO (0.9-2.4); AST(SGOT) 68 U/L (15-37); Alanine Aminotransfer ALT/SGPT 425 U/L (16-61); Albumin, Serum 2.1 g/dL (3.2-5.0); Alkaline Phosphatase 146 U/L (45-117); Anion Gap 8 (5-15); BUN 29 mg/dL (7-18); BUN/Creat Ratio 43.5 RATIO (10-20); Calcium,Total 8.4 mg/dL (8.5-10.1); Chloride 99 mmol/L (98-107); Creatinine, Serum 0.67 mg/dL (0.70-1.30); EST Glomerular Filtration Rate 134 mL/min (>60); Est Glom Filt Rate - Afr Amer 162 mL/min (>60); Estimated Creatinine Clearance 126.19 ml/min; Globulin 4.2 g/dL (2.2-4.2); Glucose 150 mg/dL (74-106); Potassium 4.6 mmol/L (3.5-5.1); Protein, Total 6.3 g/dL (6.4-8.2); Sodium Level 133 mmol/L (136-145)
--- NOTE | 2021-06-13 08:41 | PN.CC_ITS ---
Assessment & Plan Assessment/Plan (1) Acute respiratory failure with hypoxia: (2) Streptococcal pneumonia: (3) COVID-19 virus infection: (4) Chronic lymphocytic leukemia (CLL), B-cell: QUALIFIERS: Leukemia Active/Remission status: without remission Qualified Code(s): C91.10 - Chronic lymphocytic leukemia of B-cell type not having achieved remission PLAN: RECOMMENDATIONS: 1. Challenge with diuretics as renal function allows 2. Continue nasal saline 3. Wean oxygen as tolerated 4. Encourage incentive spirometer, prone positioning and Acapella as tolerated 5. Continue Decadron through 06/16/2021. Not a candidate for remdesivir or baricitinib given liver enzymes 6. Consider right upper quadrant ultrasound/GB work-up in the future IMPRESSIONS: 1. Acute hypoxic respiratory failure secondary to COVID-19 Patient with progression of disease. Unfortunately, patient with delayed presentation so not a candidate for remdesivir. Patient with elevated liver enzymes making baricitinib a poor choice. Patient is appropriately on Decadron therapy. Patient was positive over 2 L through his hospitalization. Will continue to attempt attempt diuretic therapy as renal function allows. Wean oxygen as tolerated. Encourage prone positioning, incentive spirometer and Acapella as tolerated. Patient would be at higher risk for thrombotic complications. Last chest x-ray appears to be slightly improved compared to previous. Patient appears to be responding well to nasal saline. Anticipate walking oximetry when patient can tolerate 6 L or less 2. CLL Patient seen by oncology and reviewed slides with pathology. Unclear if patient has had transformation at this time. Patient is on Decadron therapy leading to elevated white blood cell count. Would continue Decadron through the of possible. No indication for transfusion from my perspective. 3. Unvaccinated status/hyperlipidemia/hypertension/BPH/elevated LFTs Complicates care, management, recovery and prognosis. Likely okay to continue with baseline medications. May need to hold losartan and hydroc hlorothiazide if patient develops acute kidney injury. Patient with elevated LFTs, alkaline phosphatase and GGT. Consider right upper quadrant ultrasound. Defer to primary service. Patient is not reporting any clinical findings consistent with cholecystitis Subjective Subjective Patient did well overnight. No acute issues were reported. Patient overall feels subjectively improved. Patient did have a large blood clot removed from his nose using nasal saline with subjective improvement. Patient has been tolerating nasal cannula, but readily admits that it is better when he is in the prone position. Objective Data Objective Data Vital Signs: Vital Signs Temp Pulse Resp BP Pulse Ox 36.1 C L 74 18 97/52 L 92 06/13/21 05:11 06/13/21 07:01 06/13/21 07:01 06/13/21 05:11 06/13/21 07:01 Oxygen Flow Rate (L/min) [ 12 AMBULATING with Oxygen #1] Oxygen Flow Rate (L/min) 10 Oxygen Delivery Method Nasal Cannula Weight: 70.6 kg Body Mass Index (BMI) 23.6 Intake & Output: Intake and Output for Last 24 Hours 06/11/21 06/12/21 06/13/21 23:59 23:59 23:59 Intake Total 650 / 650 300 / 300 Output Total 700 / 700 1500 / 1500 Balance -50 / -50 -1200 / -1200 Medical Nutrition Assessment Dietitian: Malnutrition Criteria Met Start: 06/06/21 10:19 Freq: Status: Active Protocol: Document 06/11/21 11:58 RMA (Rec: 06/11/21 11:58 RMA [id number]) Nutrition Malnutrition Evidence of Malnutrition Exists Yes Malnutrition (severe): Acute Illness/Injury Evidenced By Suboptimal Energy Intake ( Severe),Weight Loss (Severe) Clinical Problem Acute Disease or Injury Related Malnutrition Etiology Severe malnutrition in the context of Acute illness as evidenced by inadequate oral intake and decreased appetite due to signs/symptoms of COVID 19 including loss of taste/ smell Signs/Symptoms as evidenced by pt report consuming <50% energy intake x 1 1/2 weeks due to poor appetite, loss of sense of taste & smell, and 8% unintentional wt loss x 1 1/2 weeks. Status Active Problem Recommendation Dietitian Recommendations/Changes Continue Regular diet, 120 ml ensure enlive TID with meals and Magic cup w/ L&D for additional kristina/protein if consumed. Adjust ONS as needed to optimize oral intake and prevent further wt loss. Lab / Micro Data Result Diagrams: 06/13/21 07:20 06/13/21 07:20 Labs: Laboratory Results - last 24 hr 06/11/21 07:08: Diff Path Review Reviewed 06/12/21 07:09: Absolute Neuts (auto) 19.7 H, Absolute Lymphs (auto) 157.79 H, Total Counted 100, Neutrophils % (Manual) 10 L, Lymphocytes % (Manual) 80 H*, Myelocytes % 4 H, Blast Cells % 6 H*, Diff Path Review Reviewed, Platelet Estimate ADEQUATE, RBC Morphology NORM C+C 06/13/21 07:20: WBC 225.2 H*, RBC 2.39 L, Hgb 7.8 L, Hct 26.3 L, MCV 110.0 H, MCH 32.6 H, MCHC 29.7 L, RDW Std Deviation 59.6 H, RDW Coeff of Aleksandar 17.1 H, Plt Count 355, MPV 10.0, Neut % (Auto) Not Reportable 06/13/21 07:20: Sodium 133 L, Potassium 4.6, Chloride 99, Carbon Dioxide 26.0, Anion Gap 8, BUN 29 H, Creatinine 0.67 L, Estim Creat Clear Calc 126.19, Est GFR (MDRD) Af Amer 162, Est GFR (MDRD) Non-Af 134, BUN/Creatinine Ratio 43.5 H, Glucose 150 H, Calcium 8.4 L, Total Bilirubin 1.70 H, AST 68 H, ALT 425 H, Alkaline Phosphatase 146 H, Total Protein 6.3 L, Albumin 2.1 L, Globulin 4.2, Albumin/Globulin Ratio 0.5 L Micro: Microbiology 06/05/21 19:00 Blood Culture (Wb) - Anticubital Left Blood Culture - Final No growth in 5 days. 06/05/21 19:00 Blood Culture (Wb) - Anticubital Right Blood Culture - Final No growth in 5 days. 06/06/21 10:00 Sputum, Expectorated/Coughed Gram Stain - Final 06/06/21 10:00 Sputum, Expectorated/Coughed Respiratory Culture - Final Escherichia coli Staphylococcus aureus 06/06/21 02:35 Urine, Clean Catch Legionella Antigen - Final 06/06/21 02:35 Urine, Clean Catch Streptococcus pneumoniae Antigen (M - Final 06/06/21 02:05 Mucosa - Nasopharyngeal Respiratory Panel (PCR) - Final Rhythm Strip Rhythm Strip: Sinus Rhythm Rate: 76 Ectopy: None Physical Exam Const alert, oriented x3 and no apparent distress Constitutional Narrative: In prone position. Much better spirits today General Appearance: cooperative HEENT normocephalic and head/scalp atraumatic Eyes PERRL, EOMs intact bilaterally, conjunctivae normal and no scleral icterus Neck no lymphadenopathy and no JVD Chest inspection of chest normal Chest: symmetrical chest wall rise; Negative for crepitus Resp normal respiratory effort Auscultation: diminished lung sounds; Negative for rales, rhonchi or wheezes Cardio regular rate, regular rhythm, S1 normal heart sound and S2 normal heart sound GI normal to inspection, nondistended, normoactive bowel sounds, soft to palpation, non-tender and non-distended Back/Spine no CVA tenderness Extremity normal to inspection Skin no rashes or lesions noted and no wounds Neuro Sensorium / Orientation: awake and alert Psych affect normal Charges/Coding Visit Charges Inpatient E&M: 67075 Subs Hosp L2
[2021-06-13] MEDS: guaiFENesin 1,200 MG Tablet 1200 MG PO ×2 (09:02→20:46)
[2021-06-13] MEDS: Losartan Potassium 100 MG Tablet PO (09:02)
[2021-06-13] MEDS: dexAMETHasone 4 MG Tablet 6 MG PO (09:02)
[2021-06-13] MEDS: Enoxaparin 40 MG/0.4 ML Syringe SC ×2 (09:02→20:45)
[2021-06-13] MEDS: Doxazosin 4 MG Tablet PO (09:06)
[2021-06-13] MEDS: 0.9% Saline Lock 10 ML Syringe IV ×2 (09:06→20:46)
[2021-06-13] MEDS: Metoprolol(XL)Succ 100 MG Tablet PO (09:06)
[2021-06-13] MEDS: Furosemide 20 MG Tablet PO (09:17)
[2021-06-13 09:19] LABS: Blast 44 % (0-0); Lymphocyte 52 % (19-41); Neutrophil-Segmented 4 % (47-70); Platelet Estimate ADEQUATE (ADEQ); Red Cell Morphology NORM C+C NORMAL (NORM C&C); Total Cells Counted 100 (MANUAL DIFF)
--- NOTE | 2021-06-13 17:15 | PCM.PN.HOSP ---
Subjective Subjective Doing well, down to 5 L nasal cannula. His white count is elevated which we will continue to monitor Objective Data Objective Data Vital Signs: Vital Signs Temp Pulse Resp BP Pulse Ox 98.0 F 84 18 112/59 L 93 06/13/21 14:02 06/13/21 14:02 06/13/21 14:02 06/13/21 14:02 06/13/21 14:02 Oxygen Flow Rate (L/min) [ 12 AMBULATING with Oxygen #1] Oxygen Flow Rate (L/min) 6 Oxygen Delivery Method Nasal Cannula Weight: 155 lb 10.342 oz Body Mass Index (BMI) 23.6 Intake & Output: Intake and Output for Last 24 Hours 06/12/21 06/13/21 06/14/21 03:59 03:59 03:59 Intake Total 650 / 650 300 / 300 200 / 200 Output Total 700 / 700 1500 / 1500 200 / 200 Balance -50 / -50 -1200 / -1200 0 / 0 Medical Nutrition Assessment Dietitian: Malnutrition Criteria Met Start: 06/06/21 10:19 Freq: Status: Active Protocol: Document 06/11/21 11:58 RMA (Rec: 06/11/21 11:58 RMA [id number]) Nutrition Malnutrition Evidence of Malnutrition Exists Yes Malnutrition (severe): Acute Illness/Injury Evidenced By Suboptimal Energy Intake ( Severe),Weight Loss (Severe) Clinical Problem Acute Disease or Injury Related Malnutrition Etiology Severe malnutrition in the context of Acute illness as evidenced by inadequate oral intake and decreased appetite due to signs/symptoms of COVID 19 including loss of taste/ smell Signs/Symptoms as evidenced by pt report consuming <50% energy intake x 1 1/2 weeks due to poor appetite, loss of sense of taste & smell, and 8% unintentional wt loss x 1 1/2 weeks. Status Active Problem Recommendation Dietitian Recommendations/Changes Continue Regular diet, 120 ml ensure enlive TID with meals and Magic cup w/ L&D for additional kristina/protein if consumed. Adjust ONS as needed to optimize oral intake and prevent further wt loss. Lab / Micro Data Result Diagrams: 06/13/21 07:20 06/13/21 07:20 Labs: Laboratory Results - last 24 hr 06/13/21 07:20: WBC 225.2 H*, RBC 2.39 L, Hgb 7.8 L, Hct 26.3 L, MCV 110.0 H, MCH 32.6 H, MCHC 29.7 L, RDW Std Deviation 59.6 H, RDW Coeff of Aleksnadar 17.1 H, Plt Count 355, MPV 10.0, Neut % (Auto) Not Reportable, Absolute Neuts (auto) 9.0 H, Absolute Lymphs (auto) 4.50, Total Counted 100, Neutrophils % (Manual) 4 L, Lymphocytes % (Manual) 52 H, Blast Cells % 44 H*, Diff Path Review December, Platelet Estimate ADEQUATE, RBC Morphology NORM C+C 06/13/21 07:20: Sodium 133 L, Potassium 4.6, Chloride 99, Carbon Dioxide 26.0, Anion Gap 8, BUN 29 H, Creatinine 0.67 L, Estim Creat Clear Calc 126.19, Est GFR (MDRD) Af Amer 162, Est GFR (MDRD) Non-Af 134, BUN/Creatinine Ratio 43.5 H, Glucose 150 H, Calcium 8.4 L, Total Bilirubin 1.70 H, AST 68 H, ALT 425 H, Alkaline Phosphatase 146 H, Total Protein 6.3 L, Albumin 2.1 L, Globulin 4.2, Albumin/Globulin Ratio 0.5 L Micro: Microbiology 06/05/21 19:00 Blood Culture (Wb) - Anticubital Left Blood Culture - Final No growth in 5 days. 06/05/21 19:00 Blood Culture (Wb) - Anticubital Right Blood Culture - Final No growth in 5 days. 06/06/21 10:00 Sputum, Expectorated/Coughed Gram Stain - Final 06/06/21 10:00 Sputum, Expectorated/Coughed Respiratory Culture - Final Escherichia coli Staphylococcus aureus 06/06/21 02:35 Urine, Clean Catch Legionella Antigen - Final 06/06/21 02:35 Urine, Clean Catch Streptococcus pneumoniae Antigen (M - Final 06/06/21 02:05 Mucosa - Nasopharyngeal Respiratory Panel (PCR) - Final Rhythm Strip Rhythm Strip: Sinus Rhythm Rate: 76 Ectopy: None Physical Exam Const alert, oriented x3 and no apparent distress General Appearance: cooperative HEENT normocephalic and moist oral mucous membranes Eyes PERRL, EOMs intact bilaterally and conjunctivae normal Neck supple and no JVD Resp normal respiratory effort, no retractions, no use of accessory muscles and clear to auscultation bilaterally Auscultation: Negative for crackles, rales, rhonchi or wheezes Cardio regular rate, regular rhythm, S1 normal heart sound, S2 normal heart sound and no murmurs GI soft to palpation, non-tender and non-distended; Negative for hepatosplenomegaly Extremity no clubbing, cyanosis or edema Skin no rashes or lesions noted Neuro no focal motor deficits and no sensory deficits noted Psych affect normal Appearance: appropriate Assessment & Plan Assessment/Plan (1) Acute respiratory failure with hypoxia: (2) Streptococcal pneumonia: (3) COVID-19 virus infection: (4) Acute hyponatremia: PLAN: 1. Acute hypoxic respiratory failure due to bilateral COVID-19 pneumonia with E. coli and MSSA pneumonia 06/07: Patient is on Airvo. I discussed with the patient regarding intubation ventilator if needed at last resort and he said he is okay with the ventilator as last resort but does not like to be intubated if it can be avoided. Talked with the [employer] hcm developer. Currently on NIPPV. COVID-19 PCR positive. 06/08: Mild subjective improvement of respiratory status. Temperature 102.5 ?F on 06/07 06/09: Patient on nasal cannula. On NIPPV. 06/10: Patient on 12 L of oxygen. 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 No fever for last 72 hours. Continue cefepime. Discussed with ID 06/11: On AIRVO. Patient on nasal saline spray. On Lovenox 40 mg subcu twice daily. Full therapeutic dose avoided as patient had mild epistaxis and hemoglobin is on lower side. 06/12/2021: Seems to be stabilized at the moment, will continue with her as needed Lasix secondary to crackles as well as cefepime. Continue with Decadron 06/13/2021: Oxygen requirements are down to 5 L nasal cannula. We will continue with the Decadron discussed his rising white count with his oncologist who wants to monitor at the moment. Multiple reviews demonstrated that he does not have any significant blast cells as they are just atypical lymphocytes and that this reaction can be common in an acute infection with patients with CLL 2. Possible pneumococcal pneumonia: Patient is on ceftriaxone and azithromycin. Urinary antigens are negative. Patient has fever 101 Fahrenheit. 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 06/09: Final sputum culture shows E. coli and MSSA. 3. COVID-19 pneumonia, acute: Patient is unvaccinated. His had vaccine. Patient had 3 days of dexamethasone before admission. Patient out of window for remdesivir. Does not seem to be candidate for baricitinib as patient has CLL immunocompromised and biologic will not be a good option. 06/07: Discussed with ID and currently does not seem to do anything different. 06/08: Not candidate for baricitinib as patient is immunocompromised host and elevated ALT although slight improvement in ALT. Inflammatory markers are elevated including D-dimer, fibrinogen and CRP. Procalcitonin 0.32, better than before. 4. Hypertension Hold HCTZ. Continue with losartan and metoprolol succinate 5. 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 Solomon. He said his WC count was in 50,000s inmate 2020 but is slowly getting higher. Currently 95.6 thousand. ALC 72.54 thousand. ANC 2.[address] Solomon patient did not had any indication for CLL chemotherapy but looks like he might need after he recovers from COVID-19. Patient had refused flu vaccine in the past. His is vaccinated. Patient was distressed about need for vaccine as patient is immunocompromised and nonfunctional lymphocytes. Currently does not need any specific treatment for CLL in regard to COVID-19 infection. 06/08: Progressive increase in WBC count 108,000 mainly lymphocytosis. Blast cells 29%, myelocytes 5%. Concern for tumor lysis syndrome therefore uric acid and electrolytes were ordered. LDH 341. CK 26. K4.6. Phosphorus 2.9. Uric acid 1.9. 06/08: Progressive increase WBC count, lymphocytosis and blast cells. Discussed with Dr. Solomon and consult placed. 06/10: Progressive increase in WBC count 1 51,000. ALC 114,000. I had several rounds of talk with oncologist Dr. Solomon, pathologist, patient's and patient himself. Slide was removed by pathologist and it seems atypical lymphocytes and flow cytometry was ordered. Patient's requested Dr. Solomon and myself for transfer to [facility] with anticipation that Covid can get worse and/or worsening of WBC count. I called [facility] and they said they are not accepting patient unless if Covid patient requires transplant or ECMO or leukapheresis for blast crisis. I called the and left a voice message to call back. 06/11: Further increase in leukocytosis mainly lymphocytosis 82%. Blast cells 7% increase. Discussed with oncologist Dr. Zurita and he looked at the smear. Absolute lymphocytosis. Low-grade lymphoproliferative disorder. Macrocytic anemia. Flow cytometry might take 1 week. Hemoglobin 9.3. B12 high. Folate normal. Ferritin high probably inflammatory. DVT: Lovenox Charges/Coding Visit Charges Inpatient E&M: 29787 Subs Hosp L2
--- NOTE | 2021-06-13 18:07 | NURSING ---
Pt sitting up in chair. O2 currently at 5L. pt denies feeling SOB. ate dinner well. denies needs.
[2021-06-13] MEDS: Atorvastatin Calcium 10 MG Tablet PO (20:46)
[2021-06-14] VITALS (17 sets, daily range): BP systolic 96–114; BP diastolic 58–67; PULSE 69–92; RESP 17–24; TEMP 36.4–37.2; O2SAT 84–96
[2021-06-14] MEDS: Ipratropium/Albuterol Sulfate 3 ML AMPUL.NEB INHALATION ×6 (03:16→23:28)
[2021-06-14] MEDS: 0.9% Saline Lock 10 ML Syringe IV ×2 (05:27→21:12)
[2021-06-14 07:21] LABS: Hematocrit 24.8 % (40-54); Hemoglobin 7.1 g/dL (13.0-16.5); Mean Corp Hgb Conc 28.6 g/dL (32-36); Mean Corpuscular Hgb 31.8 pg (27.0-32.0); Mean Corpuscular Volume 111.2 fL (80-94); Mean Platelet Vol. 9.8 fl (6.2-12.0); POSITIVE COUNT YES; POSITIVE DIFFERENTIAL YES; POSITIVE MORPHOLOGY YES; Platelet Count 349 K/mm3 (150-450); RBC Distribution Width CV 18.5 % (11.6-14.6); RBC Distribution Width SD 59.5 fl (35.1-43.9); Red Blood Count 2.23 M/mm3 (4.6-6.2)
[2021-06-14 07:28] LABS: Differential Indicated MANUAL DIFF; White Blood Count 244.6 K/mm3 (4.4-11.0)
[2021-06-14 07:54] LABS: ALB/GLOB Ratio 0.5 RATIO (0.9-2.4); AST(SGOT) 88 U/L (15-37); Alanine Aminotransfer ALT/SGPT 477 U/L (16-61); Albumin, Serum 2.1 g/dL (3.2-5.0); Alkaline Phosphatase 150 U/L (45-117); Anion Gap 6 (5-15); BUN 31 mg/dL (7-18); BUN/Creat Ratio 47.4 RATIO (10-20); Calcium,Total 8.4 mg/dL (8.5-10.1); Chloride 98 mmol/L (98-107); Creatinine, Serum 0.65 mg/dL (0.70-1.30); EST Glomerular Filtration Rate 136 mL/min (>60); Est Glom Filt Rate - Afr Amer 165 mL/min (>60); Estimated Creatinine Clearance 130.08 ml/min; Globulin 4.1 g/dL (2.2-4.2); Glucose 158 mg/dL (74-106); Potassium 4.7 mmol/L (3.5-5.1); Protein, Total 6.2 g/dL (6.4-8.2); Sodium Level 133 mmol/L (136-145)
[2021-06-14 08:57] LABS: Blast 33 % (0-0); Lymphocyte 56 % (19-41); Macrocytosis 2+; Monocyte 5 % (0-10); Neutrophil-Segmented 6 % (47-70); Total Cells Counted 100 (MANUAL DIFF)
[2021-06-14 08:58] LABS: Anisocytosis 1+; Red Cell Morphology N CHROM NORMAL (NORM C&C)
[2021-06-14 09:01] LABS: Absolute Neutrophil Count 14.7 X10^3/uL (2.0-7.7)
[2021-06-14] MEDS: Doxazosin 4 MG Tablet PO (10:14)
[2021-06-14] MEDS: Oxymetazoline 0.05% 1 SPRAY SPRAY.BTL 2 SPRAY NASAL ×2 (10:14→21:12)
[2021-06-14] MEDS: Enoxaparin 40 MG/0.4 ML Syringe SC ×2 (10:14→21:12)
[2021-06-14] MEDS: dexAMETHasone 4 MG Tablet 6 MG PO (10:15)
[2021-06-14] MEDS: Losartan Potassium 100 MG Tablet PO (10:15)
[2021-06-14] MEDS: Metoprolol(XL)Succ 100 MG Tablet PO (10:16)
[2021-06-14] MEDS: guaiFENesin 1,200 MG Tablet 1200 MG PO ×2 (10:16→21:12)
--- NOTE | 2021-06-14 10:36 | PCS.PANDOC ---
PANDEMIC DOCUMENTATION INITIATED: Date: 03/18/2021 Time: 190
--- NOTE | 2021-06-14 12:04 | PN.CC_ITS ---
Assessment & Plan Assessment/Plan (1) Acute respiratory failure with hypoxia: (2) Streptococcal pneumonia: (3) COVID-19 virus infection: (4) Chronic lymphocytic leukemia (CLL), B-cell: QUALIFIERS: Leukemia Active/Remission status: without remission Qualified Code(s): C91.10 - Chronic lymphocytic leukemia of B-cell type not having achieved remission PLAN: RECOMMENDATIONS: 1. Challenge with diuretics as renal function allows 2. Continue nasal saline 3. Wean oxygen as tolerated 4. Encourage incentive spirometer, prone positioning and Acapella as tolerated 5. Continue Decadron through 06/16/2021. Not a candidate for remdesivir or baricitinib given liver enzymes 6. Consider right upper quadrant ultrasound/GB work-up in the future 7. Okay to discharge from a pulmonary perspective if tolerates ambulation on 6 L or less IMPRESSIONS: 1. Acute hypoxic respiratory failure secondary to COVID-19 Patient with progression of disease. Unfortunately, patient with delayed presentation so not a candidate for remdesivir. Patient with elevated liver enzymes making baricitinib a poor choice. Patient is appropriately on Decadron therapy. Patient was positive over 2 L through his hospitalization. Will continue to attempt attempt diuretic therapy as renal function allows. Wean oxygen as tolerated. Encourage prone positioning, incentive spirometer and Acapella as tolerated. Patient would be at higher risk for thrombotic c omplications. Last chest x-ray appears to be slightly improved compared to previous. Patient appears to be responding well to nasal saline. Patient can likely be discharged from a pulmonary perspective. Patient should follow-up in our office in 4 to 6 weeks for evaluation with PFT and walking oximetry. 2. CLL Patient seen by oncology and reviewed slides with pathology. Unclear if patient has had transformation at this time. Patient is on Decadron therapy leading to elevated white blood cell count. Would continue Decadron through the of possible. Consider Lasix if patient is going to receive a unit of blood 3. Unvaccinated status/hyperlipidemia/hypertension/BPH/elevated LFTs Complicates care, management, recovery and prognosis. Likely okay to continue with baseline medications. May need to hold losartan and hydro chlorothiazide if patient develops acute kidney injury. Patient with elevated LFTs, alkaline phosphatase and GGT. Consider right upper quadrant ultrasound. Defer to primary service. Patient is not reporting any clinical findings consistent with cholecystitis Subjective Subjective Patient did well overnight. Patient subjectively felt improved compared to previous. Patient did not report any recurrent epistaxis. Patient has been using nasal saline with good effect. Oxygen has significantly improved. Patient subjectively feels stronger compared to yesterday. Objective Data Objective Data Vital Signs: Vital Signs Temp Pulse Resp BP Pulse Ox 36.6 C 92 20 H 114/64 91 06/14/21 10:10 06/14/21 11:02 06/14/21 11:02 06/14/21 10:10 06/14/21 11:25 Oxygen Flow Rate (L/min) [At 3 REST with Oxygen] Oxygen Flow Rate (L/min) [ 5 AMBULATING with Oxygen #1] Oxygen Flow Rate (L/min) 3 Oxygen Delivery Method Nasal Cannula Weight: 70.6 kg Body Mass Index (BMI) 23.6 Intake & Output: Intake and Output for Last 24 Hours 06/12/21 06/13/21 06/14/21 23:59 23:59 23:59 Intake Total 300 / 300 300 / 300 100 / 100 Output Total 1500 / 1500 200 / 200 550 / 550 Balance -1200 / -1200 100 / 100 -450 / -450 Medical Nutrition Assessment Dietitian: Malnutrition Criteria Met Start: 06/06/21 10:19 Freq: Status: Active Protocol: Document 06/11/21 11:58 RMA (Rec: 06/11/21 11:58 RMA [id number]) Nutrition Malnutrition Evidence of Malnutrition Exists Yes Malnutrition (severe): Acute Illness/Injury Evidenced By Suboptimal Energy Intake ( Severe),Weight Loss (Severe) Clinical Problem Acute Disease or Injury Related Malnutrition Etiology Severe malnutrition in the context of Acute illness as evidenced by inadequate oral intake and decreased appetite due to signs/symptoms of COVID 19 including loss of taste/ smell Signs/Symptoms as evidenced by pt report consuming <50% energy intake x 1 1/2 weeks due to poor appetite, loss of sense of taste & smell, and 8% unintentional wt loss x 1 1/2 weeks. Status Active Problem Recommendation Dietitian Recommendations/Changes Continue Regular diet, 120 ml ensure enlive TID with meals and Magic cup w/ L&D for additional kristina/protein if consumed. Adjust ONS as needed to optimize oral intake and prevent further wt loss. Lab / Micro Data Result Diagrams: 06/14/21 06:50 06/14/21 06:50 Labs: Laboratory Results - last 24 hr 06/14/21 06:50: WBC 244.6 H*, RBC 2.23 L, Hgb 7.1 L, Hct 24.8 L, MCV 111.2 H, MCH 31.8, MCHC 28.6 L, RDW Std Deviation 59.5 H, RDW Coeff of Aleksandar 18.5 H, Plt Count 349, MPV 9.8, Neut % (Auto) Not Reportable, Absolute Neuts (auto) 14.7 H, Absolute Lymphs (auto) 137.00 H, Total Counted 100, Neutrophils % (Manual) 6 L, Lymphocytes % (Manual) 56 H, Monocytes % (Manual) 5, Blast Cells % 33 H*, RBC Morphology N CHROM, Anisocytosis 1+, Macrocytosis 2+ 06/14/21 06:50: Sodium 133 L, Potassium 4.7, Chloride 98, Carbon Dioxide 29.0, Anion Gap 6, BUN 31 H, Creatinine 0.65 L, Estim Creat Clear Calc 130.08, Est GFR (MDRD) Af Amer 165, Est GFR (MDRD) Non-Af 136, BUN/Creatinine Ratio 47.4 H, Glucose 158 H, Calcium 8.4 L, Total Bilirubin 1.40 H, AST 88 H, ALT 477 H, Alkaline Phosphatase 150 H, Total Protein 6.2 L, Albumin 2.1 L, Globulin 4.1, Albumin/Globulin Ratio 0.5 L Micro: Microbiology 06/05/21 19:00 Blood Culture (Wb) - Anticubital Left Blood Culture - Final No growth in 5 days. 06/05/21 19:00 Blood Culture (Wb) - Anticubital Right Blood Culture - Final No growth in 5 days. 06/06/21 10:00 Sputum, Expectorated/Coughed Gram Stain - Final 06/06/21 10:00 Sputum, Expectorated/Coughed Respiratory Culture - Final Escherichia coli Staphylococcus aureus 06/06/21 02:35 Urine, Clean Catch Legionella Antigen - Final 06/06/21 02:35 Urine, Clean Catch Streptococcus pneumoniae Antigen (M - Final 06/06/21 02:05 Mucosa - Nasopharyngeal Respiratory Panel (PCR) - Final Rhythm Strip Rhythm Strip: Sinus Rhythm Rate: 76 Ectopy: None Physical Exam Const alert, oriented x3 and no apparent distress Constitutional Narrative: Sitting in chair General Appearance: cooperative HEENT normocephalic and head/scalp atraumatic Eyes PERRL, EOMs intact bilaterally, conjunctivae normal and no scleral icterus Neck no lymphadenopathy and no JVD Chest inspection of chest normal Chest: symmetrical chest wall rise; Negative for crepitus Resp normal respiratory effort Auscultation: diminished lung sounds; Negative for rales, rhonchi or wheezes Cardio regular rate, regular rhythm, S1 normal heart sound and S2 normal heart sound GI normal to inspection, nondistended, normoactive bowel sounds, soft to palpation, non-tender and non-distended Back/Spine no CVA tenderness Extremity normal to inspection Skin no rashes or lesions noted and no wounds Neuro Sensorium / Orientation: awake and alert Psych affect normal Charges/Coding Visit Charges Inpatient E&M: 97232 Subs Hosp L2
[2021-06-14 14:12] LABS: Pathologist Review Reviewed
--- NOTE | 2021-06-14 15:17 | PN.HOSP_ITS ---
Subjective Subjective Doing well, needed 5 to 6 L with ambulation to maintain his oxygen status and is down to 2 to 3 L at rest. However his hemoglobin is now down to 7.1 from 7.8 the day before. Objective Data Objective Data Vital Signs: Vital Signs Temp Pulse Resp BP Pulse Ox 97.8 F 81 20 H 99/60 92 06/14/21 14:55 06/14/21 14:55 06/14/21 15:00 06/14/21 14:55 06/14/21 14:55 Oxygen Flow Rate (L/min) [At 3 REST with Oxygen] Oxygen Flow Rate (L/min) [ 5 AMBULATING with Oxygen #1] Oxygen Flow Rate (L/min) 2 Oxygen Delivery Method Nasal Cannula Weight: 155 lb 10.342 oz Body Mass Index (BMI) 23.6 Intake & Output: Intake and Output for Last 24 Hours 06/13/21 06/14/21 06/15/21 03:59 03:59 03:59 Intake Total 300 / 300 300 / 300 500 / 500 Output Total 1500 / 1500 200 / 200 550 / 550 Balance -1200 / -1200 100 / 100 -50 / -50 Medical Nutrition Assessment Dietitian: Malnutrition Criteria Met Start: 06/06/21 10:19 Freq: Status: Active Protocol: Document 06/11/21 11:58 RMA (Rec: 06/11/21 11:58 RMA [id number]) Nutrition Malnutrition Evidence of Malnutrition Exists Yes Malnutrition (severe): Acute Illness/Injury Evidenced By Suboptimal Energy Intake ( Severe),Weight Loss (Severe) Clinical Problem Acute Disease or Injury Related Malnutrition Etiology Severe malnutrition in the context of Acute illness as evidenced by inadequate oral intake and decreased appetite due to signs/symptoms of COVID 19 including loss of taste/ smell Signs/Symptoms as evidenced by pt report consuming <50% energy intake x 1 1/2 weeks due to poor appetite, loss of sense of taste & smell, and 8% unintentional wt loss x 1 1/2 weeks. Status Active Problem Recommendation Dietitian Recommendations/Changes Continue Regular diet, 120 ml ensure enlive TID with meals and Magic cup w/ L&D for additional kristina/protein if consumed. Adjust ONS as needed to optimize oral intake and prevent further wt loss. Lab / Micro Data Result Diagrams: 06/14/21 06:50 06/14/21 06:50 Labs: Laboratory Results - last 24 hr 06/13/21 07:20: Diff Path Review Reviewed 06/14/21 06:50: WBC 244.6 H*, RBC 2.23 L, Hgb 7.1 L, Hct 24.8 L, MCV 111.2 H, MCH 31.8, MCHC 28.6 L, RDW Std Deviation 59.5 H, RDW Coeff of Aleksandar 18.5 H, Plt Count 349, MPV 9.8, Neut % (Auto) Not Reportable, Absolute Neuts (auto) 14.7 H, Absolute Lymphs (auto) 137.00 H, Total Counted 100, Neutrophils % (Manual) 6 L, Lymphocytes % (Manual) 56 H, Monocytes % (Manual) 5, Blast Cells % 33 H*, RBC Morphology N CHROM, Anisocytosis 1+, Macrocytosis 2+ 06/14/21 06:50: Sodium 133 L, Potassium 4.7, Chloride 98, Carbon Dioxide 29.0, Anion Gap 6, BUN 31 H, Creatinine 0.65 L, Estim Creat Clear Calc 130.08, Est GFR (MDRD) Af Amer 165, Est GFR (MDRD) Non-Af 136, BUN/Creatinine Ratio 47.4 H, Glucose 158 H, Calcium 8.4 L, Total Bilirubin 1.40 H, AST 88 H, ALT 477 H, Alkaline Phosphatase 150 H, Total Protein 6.2 L, Albumin 2.1 L, Globulin 4.1, Albumin/Globulin Ratio 0.5 L Micro: Microbiology 06/05/21 19:00 Blood Culture (Wb) - Anticubital Left Blood Culture - Final No growth in 5 days. 06/05/21 19:00 Blood Culture (Wb) - Anticubital Right Blood Culture - Final No growth in 5 days. 06/06/21 10:00 Sputum, Expectorated/Coughed Gram Stain - Final 06/06/21 10:00 Sputum, Expectorated/Coughed Respiratory Culture - Final Escherichia coli Staphylococcus aureus 06/06/21 02:35 Urine, Clean Catch Legionella Antigen - Final 06/06/21 02:35 Urine, Clean Catch Streptococcus pneumoniae Antigen (M - Final 06/06/21 02:05 Mucosa - Nasopharyngeal Respiratory Panel (PCR) - Final Rhythm Strip Rhythm Strip: Sinus Rhythm Rate: 76 Ectopy: None Physical Exam Const alert, oriented x3 and no apparent distress General Appearance: cooperative HEENT normocephalic and moist oral mucous membranes Eyes PERRL, EOMs intact bilaterally and conjunctivae normal Neck supple and no JVD Resp normal respiratory effort, no retractions, no use of accessory muscles and clear to auscultation bilaterally Auscultation: Negative for crackles, rales, rhonchi or wheezes Cardio regular rate, regular rhythm, S1 normal heart sound, S2 normal heart sound and no murmurs GI soft to palpation, non-tender and non-distended; Negative for hepatosplenomegaly Extremity no clubbing, cyanosis or edema Skin no rashes or lesions noted Neuro no focal motor deficits and no sensory deficits noted Psych affect normal Appearance: appropriate Assessment & Plan Assessment/Plan (1) Acute respiratory failure with hypoxia: (2) Streptococcal pneumonia: (3) COVID-19 virus infection: (4) Acute hyponatremia: PLAN: 1. Acute hypoxic respiratory failure due to bilateral COVID-19 pneumonia with E. coli and MSSA pneumonia 06/07: Patient is on Airvo. I discussed with the patient regarding intubation ventilator if needed at last resort and he said he is okay with the ventilator as last resort but does not like to be intubated if it can be avoided. Talked with the cuff setter lockstitch. Currently on NIPPV. COVID-19 PCR positive. 06/08: Mild subjective improvement of respiratory status. Temperature 102.5 ?F on 06/07 06/09: Patient on nasal cannula. On NIPPV. 06/10: Patient on 12 L of oxygen. Formal cuff setter lockstitch/dustless operator consult requested. No fever for last 72 hours. Continue cefepime. Discussed with ID 06/11: On AIRVO. Patient on nasal saline spray. On Lovenox 40 mg subcu twice daily. Full therapeutic dose avoided as patient had mild epistaxis and hemoglobin is on lower side. 06/12/2021: Seems to be stabilized at the moment, will continue with her as needed Lasix secondary to crackles as well as cefepime. Continue with Decadron 06/13/2021: Oxygen requirements are down to 5 L nasal cannula. We will continue with the Decadron discussed his rising white count with his oncologist who wants to monitor at the moment. Multiple reviews demonstrated that he does not have any significant blast cells as they are just atypical lymphocytes and that this reaction can be common in an acute infection with patients with CLL 06/14/2021: He has received 8 days of cefepime, and his oxygen status is significantly improved. We will hold off on any more Decadron his white count continues to climb. As his white count climbed his hemoglobin drop is now currently 7.1. Will recheck in the morning and if necessary transfuse 2. Possible pneumococcal pneumonia: Patient is on ceftriaxone and azithromycin. Urinary antigens are negative. Patient has fever 101 Fahrenheit. Azithromycin discontinued 06/07: Sputum culture growing gram-negative rods lactose machine i trimmer and patient is having fever therefore will continue antibiotic. 06/09: Final sputum culture shows E. coli and MSSA. 3. COVID-19 pneumonia, acute: Patient is unvaccinated. His had vaccine. Patient had 3 days of dexamethasone before admission. Patient out of window for remdesivir. Does not seem to be candidate for baricitinib as patient has CLL immunocompromised and biologic will not be a good option. 06/07: Discussed with ID and currently does not seem to do anything different. 06/08: Not candidate for baricitinib as patient is immunocompromised host and elevated ALT although slight improvement in ALT. Inflammatory markers are elevated including D-dimer, fibrinogen and CRP. Procalcitonin 0.32, better than before. 4. Hypertension Hold HCTZ. Continue with losartan and metoprolol succinate 5. 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 Solomon. He said his WC count was in 50,000s inmate 2020 but is slowly getting higher. Currently 95.6 thousand. ALC 72.54 thousand. ANC 2.[address] Solomon patient did not had any indication for CLL chemotherapy but looks like he might need after he recovers from COVID-19. Patient had refused flu vaccine in the past. His is vaccinated. Patient was distressed about need for vaccine as patient is immunocompromised and nonfunctional lymphocytes. Currently does not need any specific treatment for CLL in regard to COVID-19 infection. 06/08: Progressive increase in WBC count 108,000 mainly lymphocytosis. Blast cells 29%, myelocytes 5%. Concern for tumor lysis syndrome therefore uric acid and electrolytes were ordered. LDH 341. CK 26. K4.6. Phosphorus 2.9. Uric acid 1.9. 06/08: Progressive increase WBC count, lymphocytosis and blast cells. Discussed with Dr. Solomon and consult placed. 06/10: Progressive increase in WBC count 1 51,000. ALC 114,000. I had several rounds of talk with oncologist Dr. Solomon, pathologist, patient's and patient himself. Slide was removed by pathologist and it seems atypical lym phocytes and flow cytometry was ordered. Patient's requested Dr. Solomon and myself for transfer to [facility] with anticipation that Covid can get worse and/or worsening of WBC count. I called [facility], [facility] and they said they are not accepting patient unless if Covid patient requires transplant or ECMO or leukapheresis for blast crisis. I called the and left a voice message to call back. 06/11: Further increase in leukocytosis mainly lymphocytosis 82%. Blast cells 7% increase. Discussed with oncologist Dr. Zurita and he looked at the smear. Absolute lymphocytosis. Low-grade lymphoproliferative disorder. Macrocytic anemia. Flow cytometry might take 1 week. Hemoglobin 9.3. B12 high. Folate normal. Ferritin high probably inflammatory. 06/14/2021: No signs of significant bleeding, no GI bleeding, he did has coughed up some small blood clots but nothing significant enough to merit this hemoglobin declined. In discussions with oncology, there is a possibility that with the CLL and his white count being so high that it could be suppressing red blood cell production. DVT: Lovenox Charges/Coding Visit Charges Inpatient E&M: 34724 Subs Hosp L2
[2021-06-14] MEDS: Atorvastatin Calcium 10 MG Tablet PO (21:12)
[2021-06-15] VITALS (15 sets, daily range): BP systolic 94–114; BP diastolic 55–72; PULSE 72–101; RESP 18–20; TEMP 36.6–37.1; O2SAT 84–95
[2021-06-15] MEDS: Ipratropium/Albuterol Sulfate 3 ML AMPUL.NEB INHALATION ×3 (03:10→11:02)
[2021-06-15] MEDS: 0.9% Saline Lock 10 ML Syringe IV (06:03)
--- NOTE | 2021-06-15 07:23 | NURSING ---
spoke with lab about pt draw this am pending-not drawn yet-they will draw MELBA
[2021-06-15 08:20] LABS: Absolute Lymphocyte Count 219.69 X10^3/uL (0.83-4.51); Absolute Neutrophil Count 6.7 X10^3/uL (2.0-7.7); Basophil# 0.48 X10^3/uL; Basophil% 0.2 % (0-1); Eosinophil# 0.02 X10^3/uL; Hematocrit 24.9 % (40-54); Lymphocyte # 219.69 X10^3/ul (0.83-4.51); Lymphocyte % 85.2 % (19-41); Mean Corp Hgb Conc 28.1 g/dL (32-36); Mean Corpuscular Hgb 31.7 pg (27.0-32.0); Mean Corpuscular Volume 112.7 fL (80-94); Mean Platelet Vol. 9.5 fl (6.2-12.0); Monocyte# 30.13 X10^3/uL; Monocyte% 11.7 % (0-10); NRBC Flagged by Analyzer 0 % (0-5); Neutrophil # 6.73 X10^3/uL (2.7-7.7); Neutrophil % 2.6 % (47-70); POSITIVE COUNT YES; POSITIVE DIFFERENTIAL YES; POSITIVE MORPHOLOGY YES; Platelet Count 322 K/mm3 (150-450); RBC Distribution Width CV 21.3 % (11.6-14.6); RBC Distribution Width SD 62.1 fl (35.1-43.9); Red Blood Count 2.21 M/mm3 (4.6-6.2)
--- NOTE | 2021-06-15 08:50 | PN.CC_ITS ---
Assessment & Plan Assessment/Plan (1) Acute respiratory failure with hypoxia: (2) Streptococcal pneumonia: (3) COVID-19 virus infection: (4) Chronic lymphocytic leukemia (CLL), B-cell: QUALIFIERS: Leukemia Active/Remission status: without remission Qualified Code(s): C91.10 - Chronic lymphocytic leukemia of B-cell type not having achieved remission PLAN: RECOMMENDATIONS: 1. Continue incentive spirometer and Acapella until back to baseline functioning 2. Continue nasal saline 3. Wean oxygen as tolerated 4. Encourage incentive spirometer, prone positioning and Acapella as tolerated 5. Continue Decadron through 06/16/2021. Not a candidate for remdesivir or baricitinib given liver enzymes 6. Consider right upper quadrant ultrasound/GB work-up in the future 7. Okay to discharge from pulmonary perspective with follow-up in 4 to 6 weeks 8. Consider dosing with Lasix if patient received blood transfusion today IMPRESSIONS: 1. Acute hypoxic respiratory failure secondary to COVID-19 Patient with progression of disease. Unfortunately, patient with delayed presentation so not a candidate for remdesivir. Patient with elevated liver enzymes making baricitinib a poor choice. Patient is appropriately on Decadron therapy. Patient was positive over 2 L through his hospitalization. Will continue to attempt attempt diuretic therapy as renal function allows. Wean oxygen as tolerated. Encourage prone positioning, incentive spirometer and Acapella as tolerated. Patient would be at higher risk for thrombotic complic ations. Last chest x-ray appears to be slightly improved compared to previous. Patient appears to be responding well to nasal saline. Patient can likely be discharged from a pulmonary perspective. Patient should follow-up in our office in 4 to 6 weeks for evaluation with PFT and walking oximetry. 2. CLL Patient seen by oncology and reviewed slides with pathology. Unclear if patient has had transformation at this time. Patient is on Decadron therapy leading to elevated white blood cell count. Would continue Decadron through the of possible. Consider Lasix if patient is going to receive a unit of blood 3. Unvaccinated status/hyperlipidemia/hypertension/BPH/elevated LFTs Complicates care, management, recovery and prognosis. Likely okay to continue with baseline medications. May need to hold losartan and hydrochloro thiazide if patient develops acute kidney injury. Patient with elevated LFTs, alkaline phosphatase and GGT. Consider right upper quadrant ultrasound. Defer to primary service. Patient is not reporting any clinical findings consistent with cholecystitis Subjective Subjective Patient did well overnight. Patient's discharge was held secondary to anemia. Patient was able to ambulate on 6 L or less. Patient did state that approximately 30 minutes ago he started to have lower saturations, but subjectively feels well. Objective Data Objective Data Vital Signs: Vital Signs Temp Pulse Resp BP Pulse Ox 36.7 C 77 18 113/72 92 06/15/21 02:20 06/15/21 07:30 06/15/21 07:30 06/15/21 02:20 06/15/21 07:30 Oxygen Flow Rate (L/min) [At 3 REST with Oxygen] Oxygen Flow Rate (L/min) [ 6 AMBULATING with Oxygen #1] Oxygen Flow Rate (L/min) 4 Oxygen Delivery Method Nasal Cannula Weight: 70.6 kg Body Mass Index (BMI) 23.6 Intake & Output: Intake and Output for Last 24 Hours 06/13/21 06/14/21 06/15/21 23:59 23:59 23:59 Intake Total 300 / 300 700 / 700 100 / 100 Output Total 200 / 200 550 / 550 Balance 100 / 100 150 / 150 100 / 100 Medical Nutrition Assessment Dietitian: Malnutrition Criteria Met Start: 06/06/21 10:19 Freq: Status: Active Protocol: Document 06/11/21 11:58 RMA (Rec: 06/11/21 11:58 RMA [id number]) Nutrition Malnutrition Evidence of Malnutrition Exists Yes Malnutrition (severe): Acute Illness/Injury Evidenced By Suboptimal Energy Intake ( Severe),Weight Loss (Severe) Clinical Problem Acute Disease or Injury Related Malnutrition Etiology Severe malnutrition in the context of Acute illness as evidenced by inadequate oral intake and decreased appetite due to signs/symptoms of COVID 19 including loss of taste/ smell Signs/Symptoms as evidenced by pt report consuming <50% energy intake x 1 1/2 weeks due to poor appetite, loss of sense of taste & smell, and 8% unintentional wt loss x 1 1/2 weeks. Status Active Problem Recommendation Dietitian Recommendations/Changes Continue Regular diet, 120 ml ensure enlive TID with meals and Magic cup w/ L&D for additional kristina/protein if consumed. Adjust ONS as needed to optimize oral intake and prevent further wt loss. Lab / Micro Data Result Diagrams: 06/14/21 06:50 06/14/21 06:50 Labs: Laboratory Results - last 24 hr 06/13/21 07:20: Diff Path Review Reviewed 06/14/21 06:50: Absolute Neuts (auto) 14.7 H, Absolute Lymphs (auto) 137.00 H, Total Counted 100, Neutrophils % (Manual) 6 L, Lymphocytes % (Manual) 56 H, Monocytes % (Manual) 5, Blast Cells % 33 H*, Diff Path Review May foll, RBC Morphology N CHROM, Anisocytosis 1+, Macrocytosis 2+ Micro: Microbiology 06/05/21 19:00 Blood Culture (Wb) - Anticubital Left Blood Culture - Final No growth in 5 days. 06/05/21 19:00 Blood Culture (Wb) - Anticubital Right Blood Culture - Final No growth in 5 days. 06/06/21 10:00 Sputum, Expectorated/Coughed Gram Stain - Final 06/06/21 10:00 Sputum, Expectorated/Coughed Respiratory Culture - Final Escherichia coli Staphylococcus aureus 06/06/21 02:35 Urine, Clean Catch Legionella Antigen - Final 06/06/21 02:35 Urine, Clean Catch Streptococcus pneumoniae Antigen (M - Final 06/06/21 02:05 Mucosa - Nasopharyngeal Respiratory Panel (PCR) - Final Rhythm Strip Rhythm Strip: Sinus Rhythm Rate: 76 Ectopy: None Physical Exam Const alert, oriented x3 and no apparent distress Constitutional Narrative: Sitting in chair General Appearance: cooperative HEENT normocephalic and head/scalp atraumatic Eyes PERRL, EOMs intact bilaterally, conjunctivae normal and no scleral icterus Neck no lymphadenopathy and no JVD Chest inspection of chest normal Chest: symmetrical chest wall rise; Negative for crepitus Resp normal respiratory effort Auscultation: diminished lung sounds; Negative for rales, rhonchi or wheezes Cardio regular rate, regular rhythm, S1 normal heart sound and S2 normal heart sound GI normal to inspection, nondistended, normoactive bowel sounds, soft to palpation, non-tender and non-distended Back/Spine no CVA tenderness Extremity normal to inspection Skin no rashes or lesions noted and no wounds Neuro Sensorium / Orientation: awake and alert Psych affect normal Charges/Coding Visit Charges Inpatient E&M: 93281 Subs Hosp L2
[2021-06-15 09:08] LABS: Differential Indicated SCAN CRITERIA MET; White Blood Count 257.8 K/mm3 (4.4-11.0)
[2021-06-15 09:31] LABS: Anisocytosis 2+; Atypical Lymphocyte 2+ %; Differential Comment SCANNED; Reactive Lymphocyte 2+
[2021-06-15 09:32] LABS: Macrocytosis 1+; Microcytosis 1+
[2021-06-15] MEDS: Oxymetazoline 0.05% 1 SPRAY SPRAY.BTL 2 SPRAY NASAL (09:55)
[2021-06-15] MEDS: Metoprolol(XL)Succ 100 MG Tablet PO (09:56)
[2021-06-15] MEDS: Losartan Potassium 100 MG Tablet PO (09:56)
[2021-06-15] MEDS: Doxazosin 4 MG Tablet PO (09:57)
[2021-06-15] MEDS: guaiFENesin 1,200 MG Tablet 1200 MG PO (09:57)
[2021-06-15] MEDS: Enoxaparin 40 MG/0.4 ML Syringe SC (09:58)
[2021-06-15] MEDS: Furosemide 40 MG/4 ML Vial IV (11:14)
--- NOTE | 2021-06-15 12:44 | PCM.DC ---
Discharge Instructions Diet Discharge Diet: Low fat / Low cholesterol Activity Discharge Activity: Return to Normal Activity Dressing / Incision Call your doctor if you observe: Fever of 101 or Higher, Shortness of breath, Dizziness, Fainting spells, Swelling in the ankles, Chest pain and Increased palpitations (irregular heartbeat) Follow Up Care Test Results: Test results from this visit will be discussed in further detail at your follow-up appointment, if applicable. Discharge Plan Admission Admit Date/Time: 06/05/21 23:30 Attending Provider: Deondre Jonse Primary Care Provider: Corrie Ray NP Consulting Providers: Keo Martinez ; Nara Steve ; Kimber Zurita ; Raymond Doll ; Roosevelt Solomon ; Reinaldo Kitchen ; Lincoln Garduno ; Sugey Cr NP Instructions Additional Instructions / Restrictions: Follow-up BMP next week by her PCP, and sodium is still low would recommend continued discontinuation of the hydrochlorothiazide. Discharge Orders/Prescriptions Prescriptions: Continued metoprolol succinate 100 MG tablet extended release 24 hr 50 mg PO DAILY RF: 0 losartan 100 MG tablet 100 mg PO DAILY RF: 0 doxazosin 4 mg Tablet Extended Release 24hr 4 mg PO DAILY RF: 0 rosuvastatin [Crestor] 5 mg Tablet 5 mg PO DAILY RF: 0 Held hydrochlorothiazide 12.5 mg capsule 12.5 mg PO DAILY RF: 0 Hold Instructions: Resume on 06/21/21. Discontinued dexamethasone 6 mg tablet 6 mg PO DAILY RF: 0 Referrals / Follow Up: Corrie Ray NP, [facility] [Primary Care Provider] - Within 1 Week Disposition Disposition (needs filled in before D/C Order can be placed): Home, Self Care
--- NOTE | 2021-06-15 13:00 | PCM.DC.SUM ---
Providers Date of Admission: 06/05/21 Primary Care Physician: YOUSIF Bermudez Consultations 06/09/21 08:50 Consult: Oncology/Hematology Routine Consulting Provider: [facility] Reason for Consult: CLL with incrasing lymphocytes, covid 19 EMERGENT Consult: No Notified: Yes Date Notified: 06/07/21 Time Notified: 13:50 Method of Notification: Verbal 06/10/21 11:04 Consult: Lightning Rod Installer / Pulmonary Medicine Routine Consulting Provider: [facility] Reason for Consult: severe hypoxia, COVID 19 pneumonia EMERGENT Consult: No Notified: Yes Date Notified: 06/10/21 Time Notified: 11:04 Method of Notification: Text Reason For Visit: HYPOXIA,COVID,HYPONATREMIA Diagnosis Discharge Diagnosis (1) Acute respiratory failure with hypoxia: Status: Acute Code(s): J96.01 - Acute respiratory failure with hypoxia (2) Streptococcal pneumonia: Status: Acute Code(s): J15.4 - Pneumonia due to other streptococci (3) COVID-19 virus infection: Status: Acute Code(s): U07.1 - COVID-19 (4) Chronic lymphocytic leukemia (CLL), B-cell: Status: Chronic Code(s): C91.10 - Chronic lymphocytic leukemia of B-cell type not having achieved remission Qualifiers: Leukemia Active/Remission status: without remission Qualified Code(s): C91.10 - Chronic lymphocytic leukemia of B-cell type not having achieved remission Medications at Discharge Home Medications hydrochlorothiazide 12.5 mg PO DAILY 02/02/20 losartan 100 mg PO DAILY 02/02/20 metoprolol succinate 50 mg PO DAILY 02/02/20 doxazosin 4 mg PO DAILY 06/06/21 rosuvastatin [Crestor] 5 mg PO DAILY 06/06/21 Hospital Course Operations None Procedures None Summary of Care Provided Minutes Spent on Discharge: 45 Hospital Course: Per HPI: YOSSI HESS, is a 50 M who presents with shortness of breath. Patient has been sick since the according to his . Has been having fevers. 3 days ago was started on dexamethasone and has taken 3 doses. Presented here where he was hypoxic requiring oxygen. CAT scan performed that showed groundglass opacities but also bibasilar infiltrates. Hospital Course: 1. Acute hypoxic respiratory failure due to bilateral COVID-19 pneumonia with E. coli and MSSA pneumonia 06/07: Patient is on Airvo. I discussed with the patient regarding intubation ventilator if needed at last resort and he said he is okay with the ventilator as last resort but does not like to be intubated if it can be avoided. Talked with the home health care provider. Currently on NIPPV. COVID-19 PCR positive. 06/08: Mild subjective improvement of respiratory status. Temperature 102.5 ?F on 06/07 06/09: Patient on nasal cannula. On NIPPV. 06/10: Patient on 12 L of oxygen. Formal home health care provider/instructor warper consult requested. No fever for last 72 hours. Continue cefepime. Discussed with ID 06/11: On AIRVO. Patient on nasal saline spray. On Lovenox 40 mg subcu twice daily. Full therapeutic dose avoided as patient had mild epistaxis and hemoglobin is on lower side. 06/12/2021: Seems to be stabilized at the moment, will continue with her as needed Lasix secondary to crackles as well as cefepime. Continue with Decadron 06/13/2021: Oxygen requirements are down to 5 L nasal cannula. We will continue with the Decadron discussed his rising white count with his oncologist who wants to monitor at the moment. Multiple reviews demonstrated that he does not have any significant blast cells as they are just atypical lymphocytes and that this reaction can be common in an acute infection with patients with CLL 06/14/2021: He has received 8 days of cefepime, and his oxygen status is significantly improved. We will hold off on any more Decadron his white count continues to climb. As his white count climbed his hemoglobin drop is now currently 7.1. Will recheck in the morning and if necessary transfuse 06/15/2021: We discontinued his Decadron yesterday secondary to his elevation in his white count. Will give him a dose of Lasix today before and after the blood transfusion. His hemoglobin today is 7 but he is really wanting to go home as he is now below 6 L nasal cannula for ambulation. I discussed with him the plan for discharge today and he expressed understanding of the risk and benefits of going home and still wants to go home today. He understands that he will need home O2 and will need to follow-up with his PCP in 3 to 5 days for repeat CBC to monitor his hemoglobin as well as his white count. I also discussed with him the need to follow-up with his oncologist as an outpatient as well. 2. Possible pneumococcal pneumonia: Patient is on ceftriaxone and azithromycin. Urinary antigens are negative. Patient has fever 101 Fahrenheit. Azithromycin discontinued 06/07: Sputum culture growing gram-negative rods lactose job hand and patient is having fever therefore will continue antibiotic. 06/09: Final sputum culture shows E. coli and MSSA. 3. COVID-19 pneumonia, acute: Patient is unvaccinated. His had vaccine. Patient had 3 days of dexamethasone before admission. Patient out of window for remdesivir. Does not seem to be candidate for baricitinib as patient has CLL immunocompromised and biologic will not be a good option. 06/07: Discussed with ID and currently does not seem to do anything different. 06/08: Not candidate for baricitinib as patient is immunocompromised host and elevated ALT although slight improvement in ALT. Inflammatory markers are elevated including D-dimer, fibrinogen and CRP. Procalcitonin 0.32, better than before. 4. Hypertension Hold HCTZ. Continue with losartan and metoprolol succinate Recommend he follow-up with his PCP to obtain a BMP to monitor his sodium and blood pressure. If sodium and BAP are still low then would discontinue 5. 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 Solomon. He said his WC count was in 50,000s inmate 2020 but is slowly getting higher. Currently 95.6 thousand. ALC 72.54 thousand. ANC 2.[address] Solomon patient did not had any indication for CLL chemotherapy but looks like he might need after he recovers from COVID-19. Patient had refused flu vaccine in the past. His is vaccinated. Patient was distressed about need for vaccine as patient is immunocompromised and nonfunctional lymphocytes. Currently does not need any specific treatment for CLL in regard to COVID-19 infection. 06/08: Progressive increase in WBC count 108,000 mainly lymphocytosis. Blast cells 29%, myelocytes 5%. Concern for tumor lysis syndrome therefore uric acid and electrolytes were ordered. LDH 341. CK 26. K4.6. Phosphorus 2.9. Uric acid 1.9. 11/6: Progressive increase WBC count, lymphocytosis and blast cells. Discussed with Dr. Solomon and consult placed. 06/10: Progressive increase in WBC count 1 51,000. ALC 114,000. I had several rounds of talk with oncologist Dr. Solomon, pathologist, patient's and patient himself. Slide was removed by pathologist and it seems atypical lymphocytes and flow cytometry was ordered. Patient's requested Dr. Solomon and myself for transfer to [facility] with anticipation that Covid can get worse and/or worsening of WBC count. I called [facility] and they said they are not accepting patient unless if Covid patient requires transplant or ECMO or leukapheresis for blast crisis. I called the and left a voice message to call back. 06/11: Further increase in leukocytosis mainly lymphocytosis 82%. Blast cells 7% increase. Discussed with oncologist Dr. Zurita and he looked at the smear. Absolute lymphocytosis. Low-grade lymphoproliferative disorder. Macrocytic anemia. Flow cytometry might take 1 week. Hemoglobin 9.3. B12 high. Folate normal. Ferritin high probably inflammatory. 06/14/2021: No signs of significant bleeding, no GI bleeding, he did has coughed up some small blood clots but nothing significant enough to merit this hemoglobin declined. In discussions with oncology, there is a possibility that with the CLL and his white count being so high that it could be suppressing red blood cell production. Physical Exam Const alert, oriented x3 and no apparent distress General Appearance: cooperative HEENT normocephalic and moist oral mucous membranes Eyes PERRL, EOMs intact bilaterally and conjunctivae normal Neck supple and no JVD Resp normal respiratory effort, no retractions, no use of accessory muscles and clear to auscultation bilaterally Resp Narrative: Bibasilar crackles Auscultation: Negative for crackles, rales, rhonchi or wheezes Cardio regular rate, regular rhythm, S1 normal heart sound, S2 normal heart sound and no murmurs GI soft to palpation, non-tender and non-distended; Negative for hepatosplenomegaly Extremity no clubbing, cyanosis or edema Skin no rashes or lesions noted Neuro no focal motor deficits and no sensory deficits noted Psych affect normal Appearance: appropriate Medical Records Data Medical Nutrition Assessment Dietitian: Malnutrition Criteria Met Start: 06/06/21 10:19 Freq: Status: Active Protocol: Document 11/09/21 11:58 RMA (Rec: 06/11/21 11:58 RMA [id number]) Nutrition Malnutrition Evidence of Malnutrition Exists Yes Malnutrition (severe): Acute Illness/Injury Evidenced By Suboptimal Energy Intake ( Severe),Weight Loss (Severe) Clinical Problem Acute Disease or Injury Related Malnutrition Etiology Severe malnutrition in the context of Acute illness as evidenced by inadequate oral intake and decreased appetite due to signs/symptoms of COVID 19 including loss of taste/ smell Signs/Symptoms as evidenced by pt report consuming <50% energy intake x 1 1/2 weeks due to poor appetite, loss of sense of taste & smell, and 8% unintentional wt loss x 1 1/2 weeks. Status Active Problem Recommendation Dietitian Recommendations/Changes Continue Regular diet, 120 ml ensure enlive TID with meals and Magic cup w/ L&D for additional kristina/protein if consumed. Adjust ONS as needed to optimize oral intake and prevent further wt loss. Weight / BMI Weight Weight: 155 lb 10.342 oz Body Mass Index (BMI) 23.6 ABG / Lab / Microbiology Data Result Diagrams: 06/15/21 08:08 06/14/21 06:50 Laboratory: Laboratory Results - last 24 hr 06/13/21 07:20: Diff Path Review Reviewed 06/14/21 06:50: Diff Path Review May foll 06/15/21 08:08: WBC 257.8 H*, RBC 2.21 L, Hgb 7.0 L, Hct 24.9 L, MCV 112.7 H, MCH 31.7, MCHC 28.1 L, RDW Std Deviation 62.1 H, RDW Coeff of Aleksandar 21.3 H, Plt Count 322, MPV 9.5, Immature Gran % (Auto) 0.300, Neut % (Auto) 2.6 L, Lymph % (Auto) 85.2 H, Sac % (Auto) 11.7 H, Eos % (Auto) 0.0, Baso % (Auto) 0.2, Absolute Neuts (auto) 6.7, Absolute Lymphs (auto) 219.69 H, Nucleated RBC % 0, Differential Comment SCANNED, Diff Path Review May foll, Atypical Lymphocytes 2+, Reactive Lymphocytes 2+, Anisocytosis 2+, Microcytosis 1+, Macrocytosis 1+ 06/15/21 10:45: Blood Type A POSITIVE, Antibody Screen NEGATIVE, Crossmatch See Detail Microbiology: Microbiology 06/05/21 19:00 Blood Culture (Wb) - Anticubital Left Blood Culture - Final No growth in 5 days. 06/05/21 19:00 Blood Culture (Wb) - Anticubital Right Blood Culture - Final No growth in 5 days. 06/06/21 10:00 Sputum, Expectorated/Coughed Gram Stain - Final 06/06/21 10:00 Sputum, Expectorated/Coughed Respiratory Culture - Final Escherichia coli Staphylococcus aureus 06/06/21 02:35 Urine, Clean Catch Legionella Antigen - Final 06/06/21 02:35 Urine, Clean Catch Streptococcus pneumoniae Antigen (M - Final 06/06/21 02:05 Mucosa - Nasopharyngeal Respiratory Panel (PCR) - Final D/C Instructions Discharge Diet: Low fat / Low cholesterol Call your doctor if you observe: Fever of 101 or Higher, Shortness of breath, Dizziness, Fainting spells, Swelling in the ankles, Chest pain and Increased palpitations (irregular heartbeat) Meaningful Use Info Meaningful Use Diagnoses (Choose all that apply): None applicable Discharge Plan Admission Admit Date/Time: 06/05/21 23:30 Attending Provider: Deondre Jones Primary Care Provider: Corrie Ray NP Consulting Providers: Keo Martinez ; Nara Steve ; Kimber Zurita ; Raymond Doll ; Roosevelt Solomon ; Reinaldo Kitchen ; Lincoln Garduno ; Sugey Cr MARZIPAN MAKER Instructions Additional Instructions / Restrictions: Follow-up BMP next week by her PCP, and sodium is still low would recommend continued discontinuation of the hydrochlorothiazide. Discharge Orders/Prescriptions Prescriptions: Continued metoprolol succinate 100 MG tablet extended release 24 hr 50 mg PO DAILY RF: 0 losartan 100 MG tablet 100 mg PO DAILY RF: 0 doxazosin 4 mg Tablet Extended Release 24hr 4 mg PO DAILY RF: 0 rosuvastatin [Crestor] 5 mg Tablet 5 mg PO DAILY RF: 0 Held hydrochlorothiazide 12.5 mg capsule 12.5 mg PO DAILY RF: 0 Hold Instructions: Resume on 06/21/21. Discontinued dexamethasone 6 mg tablet 6 mg PO DAILY RF: 0 Referrals / Follow Up: Corrie Ray NP, MARZIPAN MAKER-C [Primary Care Provider] - Within 1 Week Disposition Disposition (needs filled in before D/C Order can be placed): Home, Self Care Charges/Coding Visit Charges Inpatient E&M: 45223 Disch Hosp
--- NOTE | 2021-06-15 16:48 | NURSING ---
awaiting conformation from [facility] [place] for setting oxygen up at home pt and updated
[2021-06-17 10:08] LABS: Pathologist Review Reviewed
[2021-06-17 13:10] LABS: Pathologist Review Reviewed
--- NOTE | 2021-06-17 15:08 | CASEMGMT ---
GUILLERMO WHITMAN Discharge Follow-up Phone Call: NAZARIO: Toshia Strata: 3 Call Date: 06/17/21 Discharge Date: 06/15/21 Time of Call: 1505 Duration: 3 min Admitting Diagnosis: Covid GUILLERMO WHITMAN completed follow-up phone call after recent hospitalization. Patient states he is doing well. Patient had no questions regarding discharge instructions. Patient has follow-up appts scheduled. Patient's oxygen was delivered without any issues. Patient had no further questions or concerns.
== END 2021-06-15 18:00 | disposition home or self-care (01) | DRG 177 ==
LOC: ED 19:03 → MS3 23:14
PROVIDERS: Internal Medicine; Emergency Provider Emergency Medicine; PCP Nurse Practitioner; Visit Provider Family Medicine
DX: U07.1 COVID-19 (principal); J15.211 Pneumonia due to Methicillin susceptible Staphylococcus aureus; J96.01 Acute respiratory failure with hypoxia; J12.82 Pneumonia due to coronavirus disease 2019; J15.5 Pneumonia due to Escherichia coli; E43 Unspecified severe protein-calorie malnutrition; C91.10 Chronic lymphocytic leukemia of B-cell type not having achieved remission; E87.1 Hypo-osmolality and hyponatremia; D84.9 Immunodeficiency, unspecified; I10 Essential (primary) hypertension; D53.9 Nutritional anemia, unspecified; Z79.899 Other long term (current) drug therapy; E78.5 Hyperlipidemia, unspecified; R79.89 Other specified abnormal findings of blood chemistry; Z87.891 Personal history of nicotine dependence; R04.0 Epistaxis; Z68.25 Body mass index [BMI] 25.0-25.9, adult
CPT/HCPCS: 36415; 71045; 71275; 80053; 82550; 82607; 82728; 82746; 82977; 83605; 83615; 83735; 83880; 84100; 84145; 84484; 84550; 85025; 85045; 85379; 85384; 86140; 86850; 86900; 86901; 86920; 86922; 87040; 87070; 87077; 87186; 87205; 87449; 87633; 87635; 93005; 94003; 94640; 94660; 94667; 94668; 94762; 97802; 99285; 99406; J7030; J7050; P9016; Q9967; U0005; A4216; J0696; J1940; U0003

== ENCOUNTER → 2021-06-18 15:54 | Outpatient (CLI) | payer OTHER, SELFPAY ==
--- NOTE | 2021-06-18 15:57 | RAD_ITS ---
History: COVID EXAMINATION/TECHNIQUE: XR Chest 2 Views: COMPARISON: June 10, 2021 FINDINGS: LINES/DEVICES: None. LUNGS: Increasing opacification of both lungs consistent with worsening pneumonia. No pneumothorax. MEDIASTINUM AND CARDIOVASCULAR STRUCTURES: Cardiac silhouette not enlarged. Central airways and mediastinal contour are unremarkable. BONES AND SOFT TISSUES: Unremarkable. RAD/Chest PA and Lateral IMPRESSION: Worsening bilateral pneumonia. at 1624 Reported and signed by: Tim Granados MD Electronically Signed: Tim Granados MD at 16:23 EST Tel , Service support ,
== END ==
PROVIDERS: PCP Nurse Practitioner
DX: U07.1 COVID-19 (principal)
CPT/HCPCS: 71046

== ENCOUNTER 2021-06-19 11:29 | Emergency (ER) | payer OTHER, SELFPAY ==
[2021-06-19] VITALS (8 sets, daily range): BP systolic 106–126; BP diastolic 69–76; PULSE 71–109; RESP 14–24; TEMP -7.7–37.2; O2SAT 96–99; BMI 22.1
--- NOTE | 2021-06-19 12:56 | EKG12_ITS ---
Test Reason : SOB Blood Pressure : / mmHG Vent. Rate : 090 BPM Atrial Rate : 090 BPM P-R Int : 150 ms QRS Dur : 092 ms QT Int : 352 ms P-R-T Axes : 046 -10 -02 degrees QTc Int : 430 ms Normal sinus rhythm Normal ECG Confirmed by ROCKY ALLEN, VIRA ([id number]), scientific publications editor SHAMAR AGUILERA ([id number]) on 06/20/2021 2:26:38 P M Referred By: MESHA Confirmed By:RC HIDALGO MD
--- NOTE | 2021-06-19 13:05 | RAD_ITS ---
History: Hypoxia, pneumonia EXAMINATION/TECHNIQUE: XR Chest 1 View: Portable COMPARISON: June 18, 2021 FINDINGS: LINES/DEVICES: None. LUNGS: Stable bilateral airspace opacification of the lungs. No pneumothorax. MEDIASTINUM AND CARDIOVASCULAR STRUCTURES: Cardiac silhouette not enlarged. Central airways and mediastinal contour are unremarkable. BONES AND SOFT TISSUES: Unremarkable. RAD/Chest 1 View (Portable) IMPRESSION: Stable bilateral pneumonia. at 1442 Reported and signed by: Tim Granados MD Electronically Signed: Tim Granados MD at 14:41 EST Tel , Service support ,
--- NOTE | 2021-06-19 13:23 | EX.ED.DYSGE1 ---
HPI History of Present Illness Chief Complaint: Shortness of Breath Informant: patient and spouse/S.O. Narrative Narrative: Patient is a 50-year-old male with history of recent COVID-19 infection currently on 4 to 6 L of oxygen at home, discharge from the hospital on Thursday, 4 days ago. He followed up outpatient with [facility] and was found to have a worsening pneumonia on chest x-ray. Patient was hypoxic in the office however he states that he ran out of oxygen while he was there. He notes that he has been home he has been feeling okay. He is more short of breath in the morning but does better throughout the day. He has been trying to move around more. Denies any recent fevers. Denies any overall change since discharge from the hospital. States overall he is feeling well. He does have a history of CLL and follows with Dr. Solomon, oncology. Patient did have a protracted hospital course complicated with streptococcal pneumonia and did require blood transfusions as well as diuresing while in the hospital. [facility] Medical History CLL (chronic lymphocytic leukemia) HTN (hypertension) Home Medications losartan 100 mg PO DAILY 02/02/20 [History Last Taken 06/05/21] metoprolol succinate 50 mg PO DAILY 02/02/20 [History Last Taken 06/05/21] doxazosin 4 mg PO DAILY 06/06/21 [History Last Taken 06/05/21] aspirin 81 mg PO DAILY 06/19/21 [History Last Taken Unknown] Allergy/AdvReac Type Severity Reaction Status Date / Time No Known Allergies Allergy Verified 06/05/21 18:16 Family History Other CLL (chronic lymphocytic leukemia) Surgical History History of arthroscopic knee surgery History of repair of ACL Social History Smoking Status: Never smoker alcohol intake: current alcohol intake frequency: a few times a month ROS ROS ED Constitutional Constitutional ED: Denies chills, fever(s) or sweats ENT ENT ED: Denies ear pain, rhinorrhea or sore throat Cardiovascular Cardiovascular: Denies chest pain or palpitations Respiratory/Chest Respiratory/Chest: Reports cough, dyspnea, dyspnea on exertion and sputum Gastrointestinal Gastrointestinal: Denies abdominal pain, nausea or vomiting Genitourinary Genitourinary ED: Denies dysuria Musculoskeletal Musculoskeletal: Denies arthralgias or myalgias Integumentary Denies rash Neurologic Neurologic: Denies headache(s) or weakness Psychiatric Psychiatric: Denies depression EXAM Physical Exam Const Vital Signs: 06/19/21 11:30 06/19/21 13:34 06/19/21 13:46 Temperature 97.6 F L Temperature Source Temporal Pulse Rate 109 H 89 Respiratory Rate 20 H 14 Respiratory Effort Respiratory Depth Respiratory Pattern Blood Pressure 126/76 H 117/71 Blood Pressure Mean 92 86 Pulse Ox 96 96 96 Oxygen Delivery Method Nasal Cannula Nasal Cannula Nasal Cannula Oxygen Flow Rate (L/min) 6 5 5 06/19/21 14:00 06/19/21 14:01 06/19/21 15:29 Temperature 97.9 F 98.9 F Temperature Source Oral Temporal Pulse Rate 90 81 Respiratory Rate 24 H 16 Respiratory Effort Normal Respiratory Depth Normal Respiratory Pattern Normal Blood Pressure 116/74 106/69 Blood Pressure Mean 88 81 Pulse Ox 96 99 Oxygen Delivery Method Nasal Cannula Nasal Cannula Nasal Cannula Oxygen Flow Rate (L/min) 5 5 5 06/19/21 15:32 Temperature 18 F L Temperature Source Pulse Rate 71 Respiratory Rate 18 Respiratory Effort Respiratory Depth Respiratory Pattern Blood Pressure 106/69 Blood Pressure Mean Pulse Ox 97 Oxygen Delivery Method Oxygen Flow Rate (L/min) Positive well nourished and well developed General Appearance ED: well developed HEENT Reports moist mucous membranes tenderness Eyes PERRL and EOMs intact bilaterally Neck supple and no JVD Chest Wall inspection of chest normal and palpation of chest normal Resp normal respiratory effort Auscultation: diminished lung sounds Cardio regular rate, regular rhythm and no murmurs GI normal to inspection, nondistended, normoactive bowel sounds Neuro oriented x3 and CN's II-XII intact bilaterally Sensorium / Orientation: alert Motor Exam: Negative for general weakness Psych mental status grossly normal Skin no rashes or lesions noted and no wounds MDM MDM MDM Narrative Medical decision making narrative: Patient is evaluated for concern of worsening pneumonia on outpatient chest x-ray. Patient was just discharged from the hospital for COVID-19 infection complicated by bilateral bacterial pneumonia. He completed a course of antibiotics. He has a chronic leukocytosis associated with CLL. It appears to be plateauing. He does not have any worsening physical symptoms. He is overall well-appearing. Patient is stable on his 6 L of oxygen with ambulation. Chest x-ray does not show any acute changes. Given that he is not having worsening clinical symptoms do not think he requires admission. Discussed this with pulmonology on-call, Dr. Garduno, who suspects he could have some pulmonary fibrosis is causing his worsening chest x-ray. Patient will follow-up outpatient with pulmonology. He has a follow-up with oncology for his leukocytosis. I do not think he requires further antibiotics as his prior sputum cultures were pansensitive and I believe he was adequately treated. Patient is agreeable with this plan and would prefer to go home. He is counseled on return precautions. He will continue to use his home pulse oximeter. Lab Data Attestation: I reviewed the patient's lab results. Labs: Laboratory Results - last 24 hr 06/19/21 06/19/21 06/19/21 13:30 13:30 13:30 WBC 231.1 H* RBC 2.65 L Hgb 8.5 L Hct 29.5 L MCV 111.3 H MCH 32.1 H MCHC 28.8 L RDW Std Deviation 69.0 H RDW Coeff of Aleksandar 20.8 H Plt Count 240 MPV 9.3 Immature Gran % (Auto) 0.100 Neut % (Auto) 2.0 L Lymph % (Auto) 88.3 H [place] % (Auto) 9.4 Eos % (Auto) 0.0 Baso % (Auto) 0.2 Absolute Neuts (auto) 4.5 Absolute Lymphs (auto) 204.08 H Nucleated RBC % 0 Differential Comment SCANNED Diff Path Review May foll Anisocytosis 1+ Macrocytosis 1+ PT 14.0 INR 1.1 APTT 25.9 Sodium 134 L Potassium 4.3 Chloride 99 Carbon Dioxide 29.0 Anion Gap 6 BUN 21 H Creatinine 0.62 L Estim Creat Clear Calc 132.03 Est GFR (MDRD) Af Amer 174 Est GFR (MDRD) Non-Af 144 BUN/Creatinine Ratio 33.6 H Glucose 143 H Lactic Acid Calcium 8.2 L Total Bilirubin 0.80 AST 62 H ALT 329 H Alkaline Phosphatase 133 H Total Creatine Kinase 28 L Troponin I High Sens 5 B-Natriuretic Peptide Total Protein 6.1 L Albumin 2.2 L Globulin 3.9 Albumin/Globulin Ratio 0.6 L Urine Color Urine Clarity Urine pH Ur Specific [place] Urine Protein Urine Glucose (UA) Urine Ketones Urine Occult Blood Urine Nitrite Urine Bilirubin Urine Urobilinogen Ur Leukocyte Esterase Urine RBC Urine WBC Ur Squamous Epith Cells Urine Bacteria Urine Mucus 06/19/21 06/19/21 06/19/21 13:30 13:30 14:26 WBC RBC Hgb Hct MCV MCH MCHC RDW Std Deviation RDW Coeff of Aleksandar Plt Count MPV Immature Gran % (Auto) Neut % (Auto) Lymph % (Auto) [place] % (Auto) Eos % (Auto) Baso % (Auto) Absolute Neuts (auto) Absolute Lymphs (auto) Nucleated RBC % Differential Comment Diff Path Review Anisocytosis Macrocytosis PT INR APTT Sodium Potassium Chloride Carbon Dioxide Anion Gap BUN Creatinine Estim Creat Clear Calc Est GFR (MDRD) Af Amer Est GFR (MDRD) Non-Af BUN/Creatinine Ratio Glucose Lactic Acid 1.1 Calcium Total Bilirubin AST ALT Alkaline Phosphatase Total Creatine Kinase Troponin I High Sens B-Natriuretic Peptide 33.7 Total Protein Albumin Globulin Albumin/Globulin Ratio Urine Color Yellow Urine Clarity Sl. Cloudy Urine pH 7.0 Ur Specific [place] 1.015 Urine Protein 15 H Urine Glucose (UA) 250 H Urine Ketones Negative Urine Occult Blood Negative Urine Nitrite Negative Urine Bilirubin Negative Urine Urobilinogen 8 H Ur Leukocyte Esterase Negative Urine RBC 0-5 SEEN Urine WBC 0 SEEN Ur Squamous Epith Cells 0-5 SEEN Urine Bacteria RARE Urine Mucus 0 SEEN Radiography Chest X-Ray - ED: 1 View, Read by ED Physician, Read by Radiologist, No Acute Disease, Right Infiltrate and Left Infiltrate Diagnostic Testing: Clinical Impression(s) from Imaging Studies Chest X-Ray 06/19/21 13:05 IMPRESSION: Stable bilateral pneumonia. at 1442 Reported and signed by: Tim Granados MD Electronically Signed: Tim Granados MD at 14:41 EST Tel , Service support , Rhythm Strip Rhythm Strip: Sinus Rhythm Rate: 90 Ectopy: None EKG Initial EKG: Attestation: I personally reviewed and interpreted this EKG as follows: Interpretation: Sinus Rhythm Comments: Normal sinus rhythm at a rate of 90 Slight left axis deviation Normal intervals Normal ST segments Nonspecific T wave inversion in lead III Discharge Plan Triage Chief Complaint: Shortness of Breath ED Provider: Daylin Keen Dx/Rx/DC Orders Clinical Impression: History of COVID-19, Hypoxia, Chronic lymphocytic leukemia (CLL), B-cell Instructions: Coronavirus Disease 2019 (COVID-19): Caring for Yourself or Others Prescriptions: No Action metoprolol succinate 100 MG tablet extended release 24 hr 50 mg PO DAILY RF: 0 losartan 100 MG tablet 100 mg PO DAILY RF: 0 doxazosin 4 mg Tablet Extended Release 24hr 4 mg PO DAILY RF: 0 aspirin 81 mg Tablet 81 mg PO DAILY RF: 0 Primary Care Provider: Corrie Ray NP Referrals: Reinaldo Kitchen MD [STAFF PHYSICIAN] - As Needed Corrie Ray NP, [facility] [Primary Care Provider] - Disposition Disposition: Home, Self Care Discharge Date/Time: 06/19/21 15:48
[2021-06-19 14:07] LABS: International Normalized Ratio 1.1
[2021-06-19 14:09] LABS: Partial Thromboplast Time 25.9 Seconds (24.1-36.2)
[2021-06-19 14:13] LABS: ALB/GLOB Ratio 0.6 RATIO (0.9-2.4); AST(SGOT) 62 U/L (15-37); Alanine Aminotransfer ALT/SGPT 329 U/L (16-61); Albumin, Serum 2.2 g/dL (3.2-5.0); Alkaline Phosphatase 133 U/L (45-117); Anion Gap 6 (5-15); BUN 21 mg/dL (7-18); BUN/Creat Ratio 33.6 RATIO (10-20); CPK Total, Creatine Kinase 28 U/L (39-308); Calcium,Total 8.2 mg/dL (8.5-10.1); Chloride 99 mmol/L (98-107); Creatinine, Serum 0.62 mg/dL (0.70-1.30); EST Glomerular Filtration Rate 144 mL/min (>60); Est Glom Filt Rate - Afr Amer 174 mL/min (>60); Estimated Creatinine Clearance 132.03 ml/min; Globulin 3.9 g/dL (2.2-4.2); Glucose 143 mg/dL (74-106); Potassium 4.3 mmol/L (3.5-5.1); Protein, Total 6.1 g/dL (6.4-8.2); Sodium Level 134 mmol/L (136-145); Troponin-I HS 5 pg/mL (3.0-78.0)
[2021-06-19 14:20] LABS: BNP,B-Type NATRIURETIC PEPTIDE 33.7 pg/mL (0-100)
[2021-06-19 14:31] LABS: Lactic Acid 1.1 mmol/L (0.4-1.9)
[2021-06-19 14:36] LABS: Mucous, Urine 0 SEEN /hpf (<or=2+); White Blood Cells 0 SEEN /hpf (0-5)
[2021-06-19 14:46] LABS: Color, Urine Yellow (Yellow); Glucose, Dipstick 250 mg/dl (Normal); Ketone-Dipstick Negative (Negative); Leukocyte Esterase-Dipstick Negative /ul (Negative); Nitrite-Dipstick Negative (Negative); Occult Blood-Urine Negative /ul (Negative); Protein-Dipstick 15 mg/dl (Negative); Specific Gravity, Urine 1.015 (1.002-1.030); Urine Bilirubin Dipstick Negative (Negative); Urine Clarity Sl. Cloudy (Clear); Urine Urobilinogen 8 mg/dl (Normal)
[2021-06-19 14:47] LABS: Absolute Lymphocyte Count 204.08 X10^3/uL (0.83-4.51); Absolute Neutrophil Count 4.5 X10^3/uL (2.0-7.7); Basophil# 0.48 X10^3/uL; Basophil% 0.2 % (0-1); Eosinophil# 0.01 X10^3/uL; Hematocrit 29.5 % (40-54); Hemoglobin 8.5 g/dL (13.0-16.5); Lymphocyte # 204.08 X10^3/ul (0.83-4.51); Lymphocyte % 88.3 % (19-41); Mean Corp Hgb Conc 28.8 g/dL (32-36); Mean Corpuscular Hgb 32.1 pg (27.0-32.0); Mean Corpuscular Volume 111.3 fL (80-94); Mean Platelet Vol. 9.3 fl (6.2-12.0); Monocyte# 21.68 X10^3/uL; Monocyte% 9.4 % (0-10); NRBC Flagged by Analyzer 0 % (0-5); Neutrophil # 4.48 X10^3/uL (2.7-7.7); POSITIVE COUNT YES; POSITIVE DIFFERENTIAL YES; POSITIVE MORPHOLOGY YES; Platelet Count 240 K/mm3 (150-450); RBC Distribution Width CV 20.8 % (11.6-14.6); Red Blood Count 2.65 M/mm3 (4.6-6.2); White Blood Count 231.1 K/mm3 (4.4-11.0)
[2021-06-19 14:51] LABS: Bacteria RARE /hpf (None Seen); Red Blood Cells-Urine 0-5 SEEN /hpf (0-5); Squamous Epithelial Cells - UA 0-5 SEEN /hpf (0-5)
[2021-06-19 14:56] LABS: Differential Indicated SCAN CRITERIA MET
[2021-06-19 15:24] LABS: Differential Comment SCANNED
[2021-06-19 15:25] LABS: Anisocytosis 1+; Macrocytosis 1+
[2021-06-20 14:47] LABS: Pathologist Review Reviewed
== END 2021-06-19 15:48 | disposition home or self-care (01) ==
PROVIDERS: Emergency Provider Emergency Medicine; PCP Nurse Practitioner
DX: R09.02 Hypoxemia (principal); C91.10 Chronic lymphocytic leukemia of B-cell type not having achieved remission; I10 Essential (primary) hypertension; Z86.16 Personal history of COVID-19; Z99.81 Dependence on supplemental oxygen; Z79.899 Other long term (current) drug therapy
CPT/HCPCS: 71045; 80053; 81001; 82550; 83605; 83880; 84484; 85025; 85610; 85730; 87040; 87086; 93005; 99284; A4216

== ENCOUNTER → 2021-08-01 13:16 | Outpatient (CLI) | payer OTHER, SELFPAY ==
--- NOTE | 2021-08-02 10:12 | PFT ---
INTRODUCTION: The patient is a 50-year-old male that presents for pulmonary function studies secondary to a diagnosis of respiratory failure. Respiratory therapy reported good patient effort. Bronchodilators were used during testing. INTERPRETATION: Forced expiration spirometry demonstrates no evidence of a large airways obstructive ventilatory defect. There was no significant response to aerosolized bronchodilators. Spirograms are of good quality and plateau normally. Body plethysmography was performed and revealed a decreased TLC to 3.73 L, 59% of predicted, indicative of a severe restrictive ventilatory impairment. Diffusing capacity by single breath CO is reduced at 57% of predicted. IMPRESSION: Severe restrictive ventilatory impairment with symmetric reduction in diffusing capacity.
== END ==
PROVIDERS: PCP Nurse Practitioner; Referring Provider Internal Medicine Critical Care Medicine; Visit Provider Internal Medicine Critical Care Medicine
DX: J96.01 Acute respiratory failure with hypoxia (principal)
CPT/HCPCS: 94060; 94726; 94729

== ENCOUNTER → 2022-01-20 | Outpatient (CLI) | payer OTHER, SELFPAY ==
[2022-01-20 12:53] LABS: ALB/GLOB Ratio 1.2 RATIO (0.9-2.4); AST(SGOT) 11 U/L (15-37); Alanine Aminotransfer ALT/SGPT 24 U/L (16-61); Albumin, Serum 3.4 g/dL (3.2-5.0); Alkaline Phosphatase 76 U/L (45-117); Anion Gap 9 (5-15); BUN 17 mg/dL (7-18); BUN/Creat Ratio 15.7 RATIO (10-20); Calcium,Total 8.7 mg/dL (8.5-10.1); Chloride 105 mmol/L (98-107); Creatinine, Serum 1.08 mg/dL (0.70-1.30); EST Glomerular Filtration Rate 76 mL/min (>60); Est Glom Filt Rate - Afr Amer 92 mL/min (>60); Globulin 2.8 g/dL (2.2-4.2); Glucose 178 mg/dL (74-106); LDH 271 U/L (87-241); Phosphorus 2.6 mg/dL (2.5-4.9); Potassium 4.2 mmol/L (3.5-5.1); Protein, Total 6.2 g/dL (6.4-8.2); Sodium Level 139 mmol/L (136-145); Uric Acid 3.8 mg/dL (3.5-7.2)
== END | disposition home or self-care (01) ==
LOC: LABSPEC 11:52
PROVIDERS: PCP Nurse Practitioner; Referring Provider Internal Medicine Hematology & Oncology; Visit Provider Internal Medicine Hematology & Oncology
DX: C91.10 Chronic lymphocytic leukemia of B-cell type not having achieved remission (principal); D64.9 Anemia, unspecified
CPT/HCPCS: 80053; 83615; 84100; 84550

== ENCOUNTER → 2022-01-31 | Outpatient (CLI) | payer OTHER, SELFPAY ==
--- NOTE | 2022-02-01 07:16 | PFT ---
INTRODUCTION: The patient is a 51-year-old male that presents for pulmonary function studies secondary to a diagnosis of respiratory failure. Respiratory therapy reported good patient effort. Bronchodilators were used during testing. INTERPRETATION: Forced expiration spirometry demonstrates no evidence of a large airways obstructive ventilatory defect. There was no significant response to aerosolized bronchodilators. Spirograms are of good quality and plateau normally. Body plethysmography was performed and reveals lung volumes to be within normal limits. Diffusing capacity by single breath CO is reduced at 57% of predicted. IMPRESSION: Isolated moderate reduction in diffusing capacity.
== END | disposition home or self-care (01) ==
LOC: PSN 09:15
PROVIDERS: PCP Nurse Practitioner; Referring Provider Internal Medicine Critical Care Medicine; Visit Provider Internal Medicine Critical Care Medicine
DX: R94.2 Abnormal results of pulmonary function studies (principal)
CPT/HCPCS: 94060; 94726; 94729

== ENCOUNTER 2022-06-02 20:11 | Inpatient (IN) | payer OTHER, SELFPAY ==
[2022-06-02 20:12] VITALS: BP 161/100; PULSE 79; RESP 16; TEMP 36.8; O2SAT 98; BMI 25.9
[2022-06-02 20:18] VITALS: BP 161/100; PULSE 79; RESP 16; TEMP 36.8; O2SAT 98
--- NOTE | 2022-06-02 20:55 | EKG12_ITS ---
Test Reason : DYSRHYTHMIA Blood Pressure : / mmHG Vent. Rate : 075 BPM Atrial Rate : 075 BPM P-R Int : 162 ms QRS Dur : 096 ms QT Int : 362 ms P-R-T Axes : 047 -16 -16 degrees QTc Int : 404 ms Normal sinus rhythm Normal ECG Confirmed by LION ALLEN, REHANA ([id number]), sports editor SHAMAR AGUILERA ([id number]) on 06/04/2022 9:27:40 AM Referred By: EMMA Confirmed By:REHANA SEYMOUR MD
--- NOTE | 2022-06-02 21:00 | EX.ED.DYSGE1 ---
HPI History of Present Illness Chief Complaint: Fever Narrative Narrative: 51-year-old male with history of CLL status postchemotherapy on venetoclax prescribed by Dr. Solomon. He states this is a targeted agent and is not chemotherapy per Dr. Solomon. Dr. Solomon had blood work drawn today and states that the patient was neutropenic. He states that he gets blood work drawn every week because he is on the venetoclax. Patient went home today and developed a fever of 101. He did a home test for COVID which was positive tonight. He reports a slight cough. In the emergency room he has no fever. Dr. Solomon sent him in for neutropenic fever work-up. Patient does not have any chest pain or shortness of breath. No urinary complaints. No diarrhea or constipation. No rashes. [facility] Medical History CLL (chronic lymphocytic leukemia) HTN (hypertension) Home Medications metoprolol succinate 100 mg tablet,extended release 24 hr 50 mg PO DAILY blood pressure 02/02/20 [History Last Taken 06/05/21] doxazosin 4 mg tablet,extended release 24 hr 4 mg PO DAILY blood pressure 06/06/21 [History Last Taken 06/05/21] folic acid 1 mg tablet 1 mg PO DAILY 02/12/22 [History Last Taken Unknown] Allergy/AdvReac Type Severity Reaction Status Date / Time No Known Allergies Allergy Verified 02/12/22 14:14 Family History Other CLL (chronic lymphocytic leukemia) Surgical History History of arthroscopic knee surgery History of repair of ACL Social History Smoking Status: Never smoker alcohol intake: current alcohol intake frequency: a few times a month ROS [facility] ED Constitutional Constitutional ED: Reports chills and fever(s) Eyes Eyes: Denies change in vision or diplopia ENT ENT ED: Denies rhinorrhea or sore throat Cardiovascular Cardiovascular: Denies chest pain or palpitations Respiratory/Chest Respiratory/Chest: Reports cough; Denies dyspnea or dyspnea on exertion Gastrointestinal Gastrointestinal: Denies abdominal pain, nausea or vomiting Genitourinary Genitourinary ED: Denies dysuria or hematuria Musculoskeletal Musculoskeletal: Reports myalgias; Denies arthralgias Integumentary Denies abscess or Abrasions Neurologic Neurologic: Denies headache(s) or paresthesias Psychiatric Psychiatric: Denies anxiety or depression EXAM Physical Exam Const Vital Signs: 06/02/22 20:12 06/02/22 20:18 06/02/22 21:35 Temperature 98.3 F 98.3 F 100.8 F H Temperature Source Temporal Temporal Oral Pulse Rate 79 79 76 Respiratory Rate 16 16 16 Blood Pressure 161/100 H 161/100 H 154/88 H Blood Pressure Mean 120 120 110 Pulse Ox 98 98 97 Oxygen Delivery Method Room Air Room Air Room Air 06/02/22 21:35 06/02/22 22:17 Temperature Temperature Source Pulse Rate 78 Respiratory Rate 17 Blood Pressure Blood Pressure Mean Pulse Ox 96 Oxygen Delivery Method Room Air Room Air Positive well nourished General Appearance ED: NAD; Negative for pallor HEENT Reports moist mucous membranes and dry mucous membranes Negative for trauma Mouth ED: Yes dry mucous membranes Mouth: dry mucous membranes Eyes PERRL and EOMs intact bilaterally Neck no lymphadenopathy Chest Wall inspection of chest normal and palpation of chest normal Resp normal respiratory effort and clear to auscultation bilaterally Auscultation: Negative for rales, rhonchi or wheezes Cardio regular rate and regular rhythm GI normal to inspection, nondistended, normoactive bowel sounds Back/Spine no CVA tenderness Neuro oriented x3, CN's II-XII intact bilaterally and no sensory deficits noted Sensorium / Orientation: alert Motor Exam: strength 5/5 throughout Psych mental status grossly normal Skin no rashes or lesions noted and no wounds General Skin Exam: Negative for jaundice or pallor MDM MDM MDM Narrative Medical decision making narrative: Patient presenting with fever today he states his T-max was 101. He states is not supposed to take anything for fever. He spoke with Dr. Solomon who sent him in for evaluation. Patient had a home COVID test that was positive. He states he actually feels better than when he checked himself. White blood cell count 1.2. He states his last one was this week and was 1.7. Hemoglobin 14.8. I have no comparison. Platelets are low at 88. I spoke with Dr. Solomon he states they were about 90 this morning. Coagulation studies are normal. Chest x-ray on my interpretation shows no acute cardiopulmonary process and radiologist agree. Urinalysis negative for infection. EKG sinus rhythm with a ventricular 75 bpm on my interpretation. No ischemic change or dysrhythmia. High-sensitivity troponin is 10. Again patient did test positive for COVID with a rapid antigen earlier this evening. I did send a COVID PCR test. Lactic acid was elevated at 2.5. He was given a liter of IV fluids. Spoke with Dr. Solomon who recommended admission because he is neutropenic with a fever and elevated lactic acid. He recommended giving meropenem. This was ordered. I spoke with the hospitalist for admission, Impression: 1. Neutropenic fever 2. COVID-19 3. Lactic acidosis 4. Leukopenia Lab Data Attestation: I reviewed the patient's lab results. Labs: Laboratory Results - last 24 hr 06/02/22 06/02/22 06/02/22 21:15 21:30 21:30 WBC 1.2 L* RBC 5.06 Hgb 14.8 Hct 42.7 MCV 84.4 MCH 29.2 MCHC 34.7 RDW Std Deviation 36.3 RDW Coeff of Aleksandar 11.9 Plt Count 88 L MPV 9.9 Immature Gran % (Auto) 0.800 Neut % (Auto) 39.4 L Lymph % (Auto) 29.5 [place] % (Auto) 29.5 H Eos % (Auto) 0.0 Baso % (Auto) 0.8 Absolute Neuts (auto) 0.5 L Absolute Lymphs (auto) 0.36 L Nucleated RBC % 0 Differential Comment SEE COMMENTS Diff Path Review May foll Platelet Estimate MOD DEC RBC Morphology N CHROM Anisocytosis RARE PT 14.2 INR 1.1 APTT 28.1 Sodium Potassium Chloride Carbon Dioxide Anion Gap BUN Creatinine Estim Creat Clear Calc Est GFR (MDRD) Af Amer Est GFR (MDRD) Non-Af BUN/Creatinine Ratio Glucose Lactic Acid Calcium Total Bilirubin AST ALT Alkaline Phosphatase Troponin I High Sens Total Protein Albumin Globulin Albumin/Globulin Ratio Urine Color Straw Urine Clarity Clear Urine pH 6.5 Ur Specific [place] 1.010 Urine Protein Negative Urine Glucose (UA) Normal Urine Ketones Negative Urine Occult Blood Negative Urine Nitrite Negative Urine Bilirubin Negative Urine Urobilinogen Normal Ur Leukocyte Esterase Negative Urine RBC 0 SEEN Urine WBC 0 SEEN Ur Squamous Epith Cells 0 SEEN Urine Bacteria 0 SEEN Urine Mucus 0 SEEN 06/02/22 06/02/22 21:30 21:30 WBC RBC Hgb Hct MCV MCH MCHC RDW Std Deviation RDW Coeff of Aleksandar Plt Count MPV Immature Gran % (Auto) Neut % (Auto) Lymph % (Auto) [place] % (Auto) Eos % (Auto) Baso % (Auto) Absolute Neuts (auto) Absolute Lymphs (auto) Nucleated RBC % Differential Comment Diff Path Review Platelet Estimate RBC Morphology Anisocytosis PT INR APTT Sodium 137 Potassium 3.7 Chloride 102 Carbon Dioxide 26.0 Anion Gap 9 BUN 15 Creatinine 1.14 Estim Creat Clear Calc 73.33 Est GFR (MDRD) Af Amer 87 Est GFR (MDRD) Non-Af 72 BUN/Creatinine Ratio 13.2 Glucose 144 H Lactic Acid 2.5 H* Calcium 8.9 Total Bilirubin 0.50 AST 17 ALT 24 Alkaline Phosphatase 95 Troponin I High Sens 10 Total Protein 6.4 Albumin 3.8 Globulin 2.6 Albumin/Globulin Ratio 1.5 Urine Color Urine Clarity Urine pH Ur Specific [place] Urine Protein Urine Glucose (UA) Urine Ketones Urine Occult Blood Urine Nitrite Urine Bilirubin Urine Urobilinogen Ur Leukocyte Esterase Urine RBC Urine WBC Ur Squamous Epith Cells Urine Bacteria Urine Mucus Radiography Diagnostic Testing: Clinical Impression(s) from Imaging Studies Chest X-Ray 06/02/22 21:10 IMPRESSION: Normal x-ray examination of the chest. Previously noted bilateral airspace opacities have resolved. Electronically Signed: Musa Pacheco MD at 21:53 EDT Reading Location ID and State: [address] [place] [address] , Service support , Discharge Plan Triage Chief Complaint: Fever ED Provider: Adalid Deras Dx/Rx/DC Orders Prescriptions: No Action folic acid 1 mg tablet 1 mg PO DAILY metoprolol succinate 100 MG tablet extended release 24 hr 50 mg PO DAILY doxazosin 4 mg Tablet Extended Release 24hr 4 mg PO DAILY Primary Care Provider: Corrie Ray NP Referrals: Corrie Ray [facility], [facility] [Primary Care Provider] -
--- NOTE | 2022-06-02 21:10 | RAD_ITS ---
STUDY: X-RAY CHEST REASON FOR EXAM: Male, 51 years old. fever TECHNIQUE: AP portable COMPARISON: 06/19/2021 FINDINGS: The lungs are clear and expanded. There is no demonstrated pleural abnormality. Normal size heart. Normal mediastinum and [place]. Normal visualized pulmonary arteries. Normal visualized aortic arch and descending thoracic aorta. Normal visualized thoracic spine. Normal visualized ribs, clavicles, and shoulders. There is no demonstrated abnormality of the visualized soft tissue structures of the upper abdomen. RAD/Chest 1 View (Portable) IMPRESSION: Normal x-ray examination of the chest. Previously noted bilateral airspace opacities have resolved. Electronically Signed: Musa Pacheco MD at 21:53 EDT ,
[2022-06-02 21:35] VITALS: BP 154/88; PULSE 76; RESP 16; TEMP 38.2; O2SAT 97
[2022-06-02 21:49] LABS: Bacteria 0 SEEN /hpf (None Seen); Mucous, Urine 0 SEEN /hpf (<or=2+); Red Blood Cells-Urine 0 SEEN /hpf (0-5); Squamous Epithelial Cells - UA 0 SEEN /hpf (0-5); White Blood Cells 0 SEEN /hpf (0-5)
[2022-06-02 21:50] LABS: Color, Urine Straw (Yellow); Glucose, Dipstick Normal (Normal); Ketone-Dipstick Negative (Negative); Leukocyte Esterase-Dipstick Negative /ul (Negative); Nitrite-Dipstick Negative (Negative); Occult Blood-Urine Negative /ul (Negative); Protein-Dipstick Negative (Negative); Urine Bilirubin Dipstick Negative (Negative); Urine Clarity Clear (Clear); Urine Urobilinogen Normal (Normal); Urine pH 6.5 (5.0 - 8.0)
[2022-06-02 21:52] LABS: Absolute Lymphocyte Count 0.36 X10^3/uL (0.83-4.51); Absolute Neutrophil Count 0.5 X10^3/uL (2.0-7.7); Basophil# 0.01 X10^3/uL; Basophil% 0.8 % (0-1); Hematocrit 42.7 % (40-54); Hemoglobin 14.8 g/dL (13.0-16.5); Lymphocyte # 0.36 X10^3/ul (0.83-4.51); Lymphocyte % 29.5 % (19-41); Mean Corp Hgb Conc 34.7 g/dL (32-36); Mean Corpuscular Hgb 29.2 pg (27.0-32.0); Mean Corpuscular Volume 84.4 fL (80-94); Mean Platelet Vol. 9.9 fl (6.2-12.0); Monocyte# 0.36 X10^3/uL; Monocyte% 29.5 % (0-10); NRBC Flagged by Analyzer 0 % (0-5); Neutrophil # 0.48 X10^3/uL (2.7-7.7); Neutrophil % 39.4 % (47-70); POSITIVE COUNT YES; POSITIVE DIFFERENTIAL YES; Platelet Count 88 K/mm3 (150-450); RBC Distribution Width CV 11.9 % (11.6-14.6); RBC Distribution Width SD 36.3 fl (35.1-43.9); Red Blood Count 5.06 M/mm3 (4.6-6.2)
[2022-06-02 22:04] LABS: International Normalized Ratio 1.1; Prothrombin Time (Protime)PT. 14.2 SECONDS (11.7-14.9)
[2022-06-02 22:05] LABS: Partial Thromboplast Time 28.1 Seconds (24.1-36.2)
[2022-06-02 22:14] LABS: ALB/GLOB Ratio 1.5 RATIO (0.9-2.4); AST(SGOT) 17 U/L (15-37); Alanine Aminotransfer ALT/SGPT 24 U/L (16-61); Albumin, Serum 3.8 g/dL (3.2-5.0); Alkaline Phosphatase 95 U/L (45-117); Anion Gap 9 (5-15); BUN 15 mg/dL (7-18); BUN/Creat Ratio 13.2 RATIO (10-20); Calcium,Total 8.9 mg/dL (8.5-10.1); Chloride 102 mmol/L (98-107); Creatinine, Serum 1.14 mg/dL (0.70-1.30); EST Glomerular Filtration Rate 72 mL/min (>60); Est Glom Filt Rate - Afr Amer 87 mL/min (>60); Estimated Creatinine Clearance 73.33 ml/min; Globulin 2.6 g/dL (2.2-4.2); Glucose 144 mg/dL (74-106); Potassium 3.7 mmol/L (3.5-5.1); Protein, Total 6.4 g/dL (6.4-8.2); Sodium Level 137 mmol/L (136-145); Troponin-I HS 10 pg/mL (3.0-78.0)
[2022-06-02 22:16] LABS: Lactic Acid 2.5 mmol/L (0.4-1.9)
[2022-06-02 22:17] VITALS: PULSE 78; RESP 17; O2SAT 96
[2022-06-02] MEDS: 0.9% Normal Saline 1,000 ML 999 ML IV (22:40)
[2022-06-02 22:44] LABS: White Blood Count 1.2 K/mm3 (4.4-11.0)
[2022-06-02 22:46] LABS: Anisocytosis RARE; Differential Comment SEE COMMENTS; Platelet Estimate MOD DEC (ADEQ); Red Cell Morphology N CHROM NORMAL (NORM C&C)
--- NOTE | 2022-06-02 23:31 | HP.PCM_ITS ---
HPI - General General Date of Admission: 06/02/22 Date of Service: 06/02/22 Chief Complaint: Neutropenic fever HPI Narrative YOSSI HESS, is a 51 M who has a significant past medical history of chronic lymphocytic leukemia presents to the emergency room due to fever. The patient is maintained on ventetoflax and sees Dr. Roosevelt Solomon. Today he left work early due to not feeling well and slept 2 hours and then woke up and had a fever of 101 degrees. He then took a home COVID test which was positive although his only respiratory complaint at present was a slight cough. He denies chest pain, shortness of breath or chills. He did have a COVID hospitalization 1 year ago that lasted 10 days. His current white blood cell count is 1.3 and his lactic acid was elevated at 2.[address] Solomon she requested patient be admitted. [facility] Medical History CLL (chronic lymphocytic leukemia) HTN (hypertension) Home Medications metoprolol succinate 100 mg tablet,extended release 24 hr 50 mg PO DAILY blood pressure 02/02/20 [History Last Taken 06/05/21] doxazosin 4 mg tablet,extended release 24 hr 4 mg PO DAILY blood pressure 06/06/21 [History Last Taken 06/05/21] folic acid 1 mg tablet 1 mg PO DAILY 02/12/22 [History Last Taken Unknown] Allergy/AdvReac Type Severity Reaction Status Date / Time No Known Allergies Allergy Verified 02/12/22 14:14 Family History Other CLL (chronic lymphocytic leukemia) Surgical History History of arthroscopic knee surgery History of repair of ACL Social History Smoking Status: Never smoker alcohol intake: current alcohol intake frequency: a few times a month ROS Constitutional Constitutional: Reports fever(s); Denies change in weight or chills Eyes Eyes: Denies change in vision ENT HEENT: Denies abnormal hearing Cardiovascular Cardiovascular: Denies chest pain or edema Respiratory/Chest Respiratory/Chest: Reports cough Gastrointestinal Gastrointestinal: Denies abdominal pain Genitourinary Genitourinary: Denies dysuria Musculoskeletal Musculoskeletal: Denies back pain Integumentary Integumentary: Denies dry skin Neurologic Neurologic: Denies abnormal speech Psychiatric Psychiatric: Denies anxiety or depression Vital Signs Vital Signs Vital Signs: 06/02/22 20:12 06/02/22 20:18 06/02/22 21:35 Temperature 98.3 F 98.3 F 100.8 F H Temperature Source Temporal Temporal Oral Pulse Rate 79 79 76 Respiratory Rate 16 16 16 Blood Pressure 161/100 H 161/100 H 154/88 H Blood Pressure Mean 120 120 110 Pulse Ox 98 98 97 Oxygen Delivery Method Room Air Room Air Room Air 06/02/22 21:35 06/02/22 22:17 Temperature Temperature Source Pulse Rate 78 Respiratory Rate 17 Blood Pressure Blood Pressure Mean Pulse Ox 96 Oxygen Delivery Method Room Air Room Air Weight Weight: 170 lb 13.732 oz Body Mass Index (BMI) 25.9 Physical Exam Const alert and oriented x3 General Appearance: cooperative and well developed HEENT normocephalic and head/scalp atraumatic Eyes PERRL Lymph Lymphatic: no lymphadenopathy noted Resp normal respiratory effort, normal air movement and clear to auscultation bilaterally Cardio regular rate, regular rhythm, S1 normal heart sound, S2 normal heart sound and no murmurs GI normal to inspection, nondistended, normoactive bowel sounds and soft to palpation Extremity normal capillary refill Skin General Skin Exam: no breakdown Neuro CN's II-XII intact bilaterally Psych thought process normal, cooperative and affect normal Appearance: appropriate Results Lab / Micro Data Result Diagrams: 06/02/22 21:30 06/02/22 21:30 Labs: Laboratory Results - last 24 hr 06/02/22 21:15: Urine Color Straw, Urine Clarity Clear, Urine pH 6.5, Ur Specific [place] 1.010, Urine Protein Negative, Urine Glucose (UA) Normal, Urine Ketones Negative, Urine Occult Blood Negative, Urine Nitrite Negative, Urine Bilirubin Negative, Urine Urobilinogen Normal, Ur Leukocyte Esterase Negative, Urine RBC 0 SEEN, Urine WBC 0 SEEN, Ur Squamous Epith Cells 0 SEEN, Urine Bacteria 0 SEEN, Urine Mucus 0 SEEN 06/02/22 21:30: WBC 1.2 L*, RBC 5.06, Hgb 14.8, Hct 42.7, MCV 84.4, MCH 29.2, MCHC 34.7, RDW Std Deviation 36.3, RDW Coeff of Aleksandar 11.9, Plt Count 88 L, MPV 9.9, Immature Gran % (Auto) 0.800, Neut % (Auto) 39.4 L, Lymph % (Auto) 29.5, [place] % (Auto) 29.5 H, Eos % (Auto) 0.0, Baso % (Auto) 0.8, Absolute Neuts (auto) 0.5 L, Absolute Lymphs (auto) 0.36 L, Nucleated RBC % 0, Differential Comment SEE COMMENTS, Diff Path Review December foll, Platelet Estimate MOD DEC, RBC Morphology N CHROM, Anisocytosis RARE 06/02/22 21:30: PT 14.2, INR 1.1, APTT 28.1 06/02/22 21:30: Sodium 137, Potassium 3.7, Chloride 102, Carbon Dioxide 26.0, Anion Gap 9, BUN 15, Creatinine 1.14, Estim Creat Clear Calc 73.33, Est GFR (M DRD) Af Amer 87, Est GFR (MDRD) Non-Af 72, BUN/Creatinine Ratio 13.2, Glucose 144 H, Calcium 8.9, Total Bilirubin 0.50, AST 17, ALT 24, Alkaline Phosphatase 95, Troponin I High Sens 10, Total Protein 6.4, Albumin 3.8, Globulin 2.6, Albumin/Globulin Ratio 1.5 06/02/22 21:30: Lactic Acid 2.5 H* Radiology Impression Chest X-Ray 06/02/22 21:10 IMPRESSION: Normal x-ray examination of the chest. Previously noted bilateral airspace opacities have resolved. Electronically Signed: Musa Pacheco MD at 21:53 EDT , Assessment & Plan Assessment/Plan (1) Chronic lymphocytic leukemia (CLL), B-cell: QUALIFIERS: Leukemia Active/Remission status: without remission Qualified Code(s): C91.10 - Chronic lymphocytic leukemia of B-cell type not having achieved remission (2) COVID-19 virus infection: (3) Neutropenic fever: PLAN: Plan 1 neutropenic fever secondary to chronic lymphocytic leukemia therapy?admit patient to general medical floor use contact isolation due to neutropenia as well as current COVID-19 infection. We will treat patient with IV normal saline at a rate of 125 cc/h, continue meropenem initiated in the emergency room. Repeat CBC, BMP in a.m. 2. COVID-19 positive?continue isolation procedures, currently patient is in no respiratory distress with only mild cough will have as needed oxygen as needed and continue to monitor, based on current exam is felt that steroids are not necessary at this time. 3. DVT prophylaxis?low molecular weight heparin 4. Hypertension?continue home medications Charges/Coding Visit Charges Inpatient E&M: 74618 Init Hosp L3
[2022-06-02 23:43] VITALS: BP 138/80; PULSE 63; RESP 12; TEMP 37.7; O2SAT 96
[2022-06-02 23:47] VITALS: BP 138/80; PULSE 63; RESP 12; TEMP 37.7; O2SAT 96
[2022-06-03 01:14] VITALS: BMI 25.6
[2022-06-03 01:15] VITALS: BP 135/83; PULSE 73; RESP 18; TEMP 37.3; O2SAT 97
[2022-06-03 01:22] VITALS: BP 135/83; PULSE 73; RESP 18; TEMP 37.3; O2SAT 97
[2022-06-03] MEDS: 0.9% Normal Saline 1,000 ML 125 ML IV (01:34)
[2022-06-03 01:57] LABS: Reflex Lactate? Y
[2022-06-03 03:09] LABS: Absolute Neutrophil Count 0.4 X10^3/uL (2.0-7.7); Basophil# 0.01 X10^3/uL; Basophil% 0.9 % (0-1); Hematocrit 40.1 % (40-54); Hemoglobin 14.2 g/dL (13.0-16.5); Lymphocyte % 35.4 % (19-41); Mean Corp Hgb Conc 35.4 g/dL (32-36); Mean Corpuscular Volume 84.6 fL (80-94); Mean Platelet Vol. 10.5 fl (6.2-12.0); Monocyte# 0.35 X10^3/uL; NRBC Flagged by Analyzer 0 % (0-5); Neutrophil # 0.36 X10^3/uL (2.7-7.7); Neutrophil % 31.8 % (47-70); POSITIVE COUNT YES; POSITIVE DIFFERENTIAL YES; Platelet Count 80 K/mm3 (150-450); RBC Distribution Width CV 11.9 % (11.6-14.6); RBC Distribution Width SD 36.4 fl (35.1-43.9); Red Blood Count 4.74 M/mm3 (4.6-6.2); White Blood Count 1.1 K/mm3 (4.4-11.0)
[2022-06-03 03:12] LABS: Differential Indicated SCAN CRITERIA MET
[2022-06-03 03:33] LABS: Lactic Acid 1.2 mmol/L (0.4-1.9)
[2022-06-03 03:37] LABS: Anion Gap 8 (5-15); BUN 12 mg/dL (7-18); BUN/Creat Ratio 12.6 RATIO (10-20); Calcium,Total 8.2 mg/dL (8.5-10.1); Chloride 104 mmol/L (98-107); Creatinine, Serum 0.95 mg/dL (0.70-1.30); EST Glomerular Filtration Rate 88 mL/min (>60); Est Glom Filt Rate - Afr Amer 107 mL/min (>60); Glucose 112 mg/dL (74-106); LDH 142 U/L (87-241); Potassium 3.7 mmol/L (3.5-5.1); Sodium Level 137 mmol/L (136-145)
--- NOTE | 2022-06-03 07:30 | PCM.PN.HOSP ---
Objective Data Objective Data Vital Signs: Vital Signs Temp Pulse Resp BP Pulse Ox O2 Del Method 99.1 F 73 18 135/83 H 97 Room Air 06/03/22 01:22 06/03/22 01:22 06/03/22 01:22 06/03/22 01:22 06/03/22 01:22 06/03/22 01:22 Oxygen Delivery Method Room Air Weight: 76.7 kg Body Mass Index (BMI) 25.6 Intake & Output: Intake and Output for Last 24 Hours 06/01/22 06/02/22 06/03/22 23:59 23:59 23:59 Intake Total 1290 / 1290 Output Total Balance 1288 / 1288 Lab / Micro Data Result Diagrams: 06/03/22 02:45 06/03/22 02:45 Labs: Laboratory Results - last 24 hr 06/02/22 21:15: Urine Color Straw, Urine Clarity Clear, Urine pH 6.5, Ur Specific [place] 1.010, Urine Protein Negative, Urine Glucose (UA) Normal, Urine Ketones Negative, Urine Occult Blood Negative, Urine Nitrite Negative, Urine Bilirubin Negative, Urine Urobilinogen Normal, Ur Leukocyte Esterase Negative, Urine RBC 0 SEEN, Urine WBC 0 SEEN, Ur Squamous Epith Cells 0 SEEN, Urine Bacteria 0 SEEN, Urine Mucus 0 SEEN 06/02/22 21:30: WBC 1.2 L*, RBC 5.06, Hgb 14.8, Hct 42.7, MCV 84.4, MCH 29.2, MCHC 34.7, RDW Std Deviation 36.3, RDW Coeff of Aleksandar 11.9, Plt Count 88 L, MPV 9.9, Immature Gran % (Auto) 0.800, Neut % (Auto) 39.4 L, Lymph % (Auto) 29.5, [place] % (Auto) 29.5 H, Eos % (Auto) 0.0, Baso % (Auto) 0.8, Absolute Neuts (auto) 0.5 L, Absolute Lymphs (auto) 0.36 L, Nucleated RBC % 0, Differential Comment SEE COMMENTS, Diff Path Review May foll, Platelet Estimate MOD DEC, RBC Morphology N CHROM, Anisocytosis RARE 06/02/22 21:30: PT 14.2, INR 1.1, APTT 28.1 06/02/22 21:30: Sodium 137, Potassium 3.7, Chloride 102, Carbon Dioxide 26.0, Anion Gap 9, BUN 15, Creatinine 1.14, Estim Creat Clear Calc 73.33, Est GFR (MDRD) Af Amer 87, Est GFR (MDRD) Non-Af 72, BUN/Creatinine Ratio 13.2, Glucose 144 H, Calcium 8.9, Total Bilirubin 0.50, AST 17, ALT 24, Alkaline Phosphatase 95, Troponin I High Sens 10, Total Protein 6.4, Albumin 3.8, Globulin 2.6, Albumin/Globulin Ratio 1.5 06/02/22 21:30: Lactic Acid 2.5 H* 06/02/22 22:58: COVID-19 (DEL) Detected 06/03/22 02:45: Sodium 137, Potassium 3.7, Chloride 104, Carbon Dioxide 25.0, Anion Gap 8, BUN 12, Creatinine 0.95, Estim Creat Clear Calc 88.00, Est GFR (MDRD) Af Amer 107, Est GFR (MDRD) Non-Af 88, BUN/Creatinine Ratio 12.6, Glucose 112 H, Calcium 8.2 L, Lactate Dehydrogenase 142 06/03/22 02:45: WBC 1.1 L*, RBC 4.74, Hgb 14.2, Hct 40.1, MCV 84.6, MCH 30.0, MCHC 35.4, RDW Std Deviation 36.4, RDW Coeff of Aleksandar 11.9, Plt Count 80 L, MPV 10.5, Immature Gran % (Auto) 0.900, Neut % (Auto) 31.8 L, Lymph % (Auto) 35.4, [place] % (Auto) 31.0 H, Eos % (Auto) 0.0, Baso % (Auto) 0.9, Absolute Neuts (auto) 0.4 L, Absolute Lymphs (auto) 0.40 L, Nucleated RBC % 0, Diff Path Review December06/03/22 02:45: Lactic Acid 1.2 Radiography Diagnostic Testing: Radiology Impression Chest X-Ray 06/02/22 21:10 IMPRESSION: Normal x-ray examination of the chest. Previously noted bilateral airspace opacities have resolved. Electronically Signed: Musa Pacheco MD at 21:53 EDT , Physical Exam Narrative GENERAL: cooperative HEENT: Atraumatic; normocephalic EYES; Anicteric, Normal Conjunctiva NECK; supple, normal thyroid, RESPIRATORY: Diminished to auscultation CARDIOVASCULAR: Regular S1 S2, GI: soft, normoactive bowel sounds, : No Renal angle tenderness; EXTREMITIES: No edema, no clubbing, MUSCULOSKELETAL: no muscle wasting NEURO: Awake; no lateralizing signs. SKIN: No Rash PSYCH; Flat affect Assessment & Plan Assessment/Plan (1) Chronic lymphocytic leukemia (CLL), B-cell: QUALIFIERS: Leukemia Active/Remission status: without remission Qualified Code(s): C91.10 - Chronic lymphocytic leukemia of B-cell type not having achieved remission (2) COVID-19 virus infection: (3) Neutropenic fever: PLAN: Plan 1 neutropenic fever secondary to chronic lymphocytic leukemia therapy?admit patient to general medical floor use contact isolation due to neutropenia as well as current COVID-19 infection. We will treat patient with IV normal saline at a rate of 125 cc/h, continue meropenem initiated in the emergency room. Repeat CBC, BMP in a.m. 2. COVID-19 positive?continue isolation procedures, currently patient is in no respiratory distress with only mild cough will have as needed oxygen as needed and continue to monitor, based on current exam is felt that steroids are not necessary at this time. 3. DVT prophylaxis?low molecular weight heparin 4. Hypertension?continue home medications
--- NOTE | 2022-06-03 10:00 | DS.PCM_ITS ---
Providers Date of Admission: 06/02/22 Date of Discharge: 06/03/22 Primary Care Physician: YOUSIF Bermudez Reason For Visit: NEUTROPENIC FEVER, COVID-19 POSITIVE Diagnosis Discharge Diagnosis (1) Chronic lymphocytic leukemia (CLL), B-cell: Status: Chronic Code(s): C91.10 - Chronic lymphocytic leukemia of B-cell type not having achieved rem ission Qualifiers: Leukemia Active/Remission status: without remission Qualified Code(s): C91.10 - Chronic lymphocytic leukemia of B-cell type not having achieved remission (2) COVID-19 virus infection: Status: Acute Code(s): U07.1 - COVID-19 (3) Neutropenic fever: Status: Acute Code(s): D70.9 - Neutropenia, unspecified; R50.81 - Fever presenting with conditions classified elsewhere Plan Patient is a 51-year-old gentleman with history of CLL who presented with fever. 1. Neutropenic fever ?chemo induced neutropenic fever complicated by patient's COVID. Admitted to regular nursing floor managed broad-spectrum antibiotic therapy cultures sent. Patient requested to be discharged home Case was discussed with patient oncologist Dr. Solomon patient will follow-up with him within 1 to 2 days. Patient blood cultures at the time of discharge had remained negative to date 2. COVID-19 infection ? Treated symptomatically. 3. CLL ? On chemo as outpatient 4. Hypertension - Blood pressure controlled, home medications continued with dose adjustment as needed 5. Chemo induced thrombocytopenia -did monitor counts Medications at Discharge Home Medications metoprolol succinate 100 mg tablet,extended release 24 hr 50 mg PO DAILY blood pressure 02/02/20 doxazosin 4 mg tablet,extended release 24 hr 4 mg PO DAILY blood pressure 06/06/21 folic acid 1 mg tablet 1 mg PO DAILY Check with primary doctor 02/12/22 acyclovir 400 mg tablet 400 mg PO DAILY Check with primary doctor 06/02/22 allopurinol 300 mg tablet 300 mg PO BID Check with primary doctor 06/02/22 levofloxacin 750 mg tablet 750 mg PO DAILY #7 tabs 06/03/22 Hospital Course Summary of Care Provided Minutes Spent on Discharge: 35 Physical Exam Narrative GENERAL: cooperative HEENT: Atraumatic; normocephalic EYES; Anicteric, Normal Conjunctiva NECK; supple, normal thyroid, RESPIRATORY: Diminished to auscultation CARDIOVASCULAR: Regular S1 S2, GI: soft, normoactive bowel sounds, : No Renal angle tenderness; EXTREMITIES: No edema, no clubbing, MUSCULOSKELETAL: no muscle wasting NEURO: Awake; no lateralizing signs. SKIN: No Rash PSYCH; Flat affect Weight / BMI Weight Weight: 76.7 kg Body Mass Index (BMI) 25.6 ABG / Lab / Microbiology Data Result Diagrams: 06/03/22 02:45 06/03/22 02:45 Laboratory: Laboratory Results - last 24 hr 06/02/22 21:15: Urine Color Straw, Urine Clarity Clear, Urine pH 6.5, Ur Specific [place] 1.010, Urine Protein Negative, Urine Glucose (UA) Normal, Urine Ketones Negative, Urine Occult Blood Negative, Urine Nitrite Negative, Urine Bilirubin Negative, Urine Urobilinogen Normal, Ur Leukocyte Esterase Negative, Urine RBC 0 SEEN, Urine WBC 0 SEEN, Ur Squamous Epith Cells 0 SEEN, Urine Bacteria 0 SEEN, Urine Mucus 0 SEEN 06/02/22 21:30: WBC 1.2 L*, RBC 5.06, Hgb 14.8, Hct 42.7, MCV 84.4, MCH 29.2, MCHC 34.7, RDW Std Deviation 36.3, RDW Coeff of Aleksandar 11.9, Plt Count 88 L, MPV 9.9, Immature Gran % (Auto) 0.800, Neut % (Auto) 39.4 L, Lymph % (Auto) 29.5, [place] % (Auto) 29.5 H, Eos % (Auto) 0.0, Baso % (Auto) 0.8, Absolute Neuts (auto) 0.5 L, Absolute Lymphs (auto) 0.36 L, Nucleated RBC % 0, Differential Comment SEE COMMENTS, Diff Path Review December adilia, Platelet Estimate MOD DEC, RBC Mor phology N CHROM, Anisocytosis RARE 06/02/22 21:30: PT 14.2, INR 1.1, APTT 28.1 06/02/22 21:30: Sodium 137, Potassium 3.7, Chloride 102, Carbon Dioxide 26.0, Anion Gap 9, BUN 15, Creatinine 1.14, Estim Creat Clear Calc 73.33, Est GFR (MDRD) Af Amer 87, Est GFR (MDRD) Non-Af 72, BUN/Creatinine Ratio 13.2, Glucose 144 H, Calcium 8.9, Total Bilirubin 0.50, AST 17, ALT 24, Alkaline Phosphatase 95, Troponin I High Sens 10, Total Protein 6.4, Albumin 3.8, Globulin 2.6, Albumin/Globulin Ratio 1.5 06/02/22 21:30: Lactic Acid 2.5 H* 06/02/22 22:58: COVID-19 (DEL) Detected 06/03/22 02:45: Sodium 137, Potassium 3.7, Chloride 104, Carbon Dioxide 25.0, Anion Gap 8, BUN 12, Creatinine 0.95, Estim Creat Clear Calc 88.00, Est GFR (MDRD) Af Amer 107, Est GFR (MDRD) Non-Af 88, BUN/Creatinine Ratio 12.6, Glucose 112 H, Calcium 8.2 L, Lactate Dehydrogenase 142 06/03/22 02:45: WBC 1.1 L*, RBC 4.74, Hgb 14.2, Hct 40.1, MCV 84.6, MCH 30.0, MCHC 35.4, RDW Std Deviation 36.4, RDW Coeff of Aleksandar 11.9, Plt Count 80 L, MPV 10.5, Immature Gran % (Auto) 0.900, Neut % (Auto) 31.8 L, Lymph % (Auto) 35.4, [place] % (Auto) 31.0 H, Eos % (Auto) 0.0, Baso % (Auto) 0.9, Absolute Neuts (auto) 0.4 L, Absolute Lymphs (auto) 0.40 L, Nucleated RBC % 0, Diff Path Review December06/03/22 02:45: Lactic Acid 1.2 Radiography Diagnostic Testing: Radiology Impression Chest X-Ray 06/02/22 21:10 IMPRESSION: Normal x-ray examination of the chest. Previously noted bilateral airspace opacities have resolved. Electronically Signed: Musa Pacheco MD at 21:53 EDT Reading Location ID and State: [facility] / OR , Service support , D/C Instructions Discharge Diet: No restrictions Discharge Activity: Return to Normal Activity Call your doctor if you observe: Fever of 101 or Higher, Shortness of breath, Fainting spells and Chest pain Meaningful Use Info Meaningful Use Diagnoses (Choose all that apply): None applicable Discharge Plan Admission Admit Date/Time: 06/02/22 23:39 Attending Provider: Ermias Rowe Primary Care Provider: Corrie Ray NP Consulting Providers: Roosevelt Noyola Discharge Orders/Prescriptions Prescriptions: New levofloxacin 750 mg tablet 750 mg PO DAILY Qty: 7 0RF Continued folic acid 1 mg tablet 1 mg PO DAILY metoprolol succinate 100 MG tablet extended release 24 hr 50 mg PO DAILY doxazosin 4 mg Tablet Extended Release 24hr 4 mg PO DAILY acyclovir 400 mg tablet 400 mg PO DAILY Label Comments: TAKE 1 TABLET BY MOUTH TWICE A DAY allopurinol 300 mg tablet 300 mg PO BID Label Comments: TAKE 1 TABLET BY MOUTH ONCE DAILY Referrals / Follow Up: Roosevelt Solomon DO [Med Staff - Active Staff] - In 1 Day Corrie Ray NP, [employer] [Primary Care Provider] - Within 1 Week Disposition Disposition (needs filled in before D/C Order can be placed): Home, Self Care Charges/Coding Visit Charges Inpatient E&M: 94181 Disch Hosp
--- NOTE | 2022-06-03 11:00 | CASEMGMT ---
RN CM called patient in room for initial transition planning/care coordination assessment. RN CM introduced self and role at [facility]. Patient is alert and oriented. Patient willing to participate in assessment and is able to answer all questions appropriately. Care providers, pharmacy, and demographics verified. Patient wishes to discharge home, denies need for home health at this time. Patient states he has no further needs or concerns at this time. CM to follow for discharge planning needs that may arise. PCP: Flor RAW SAMPLER Specialists: Neha, oncologist Preferred Pharmacy: [facility]; [facility] Retail at discharge Insurance: MMO Prescription Benefit: yes Living Will/HPOA: none LNOK: Living Arrangements: Patient live with in a 2 story home with bed and bath on first floor. 1 steps to enter the home. Patient states he is independent at home. Transportation: self, DME/HHC: Patient denies DME in the home. No previous HHC or SNF Disposition Plan: Patient to discharge home with family support and follow-up plans in place. Aleisha MITCHELL, RN, CM
[2022-06-03 11:15] VITALS: BP 132/81; PULSE 72; RESP 18; TEMP 36.8; O2SAT 99
[2022-06-03 11:16] VITALS: BP 132/81; PULSE 72; RESP 18; TEMP 36.8; O2SAT 99
[2022-06-03 11:17] VITALS: PULSE 72
[2022-06-03] MEDS: Metoprolol(XL)Succ 50 MG Tablet PO (11:17)
[2022-06-03] MEDS: Folic Acid 1 MG Tablet PO (11:17)
[2022-06-03] MEDS: Doxazosin 4 MG Tablet PO (11:17)
[2022-06-03] MEDS: Enoxaparin 40 MG/0.4 ML Syringe SC (11:18)
[2022-06-04 09:52] LABS: Pathologist Review Reviewed
[2022-06-04 09:53] LABS: Pathologist Review Reviewed
== END 2022-06-03 12:17 | disposition home or self-care (01) | DRG 808 ==
LOC: ED 21:28 → MS3 06-03 00:25
PROVIDERS: Admitting Provider Family Medicine; Emergency Provider Student in an Organized Health Care Education/Training Program; PCP Nurse Practitioner; Visit Provider Internal Medicine
DX: D70.1 Agranulocytosis secondary to cancer chemotherapy (principal); U07.1 COVID-19; C91.10 Chronic lymphocytic leukemia of B-cell type not having achieved remission; D69.59 Other secondary thrombocytopenia; I10 Essential (primary) hypertension; R50.81 Fever presenting with conditions classified elsewhere; Z79.899 Other long term (current) drug therapy; T45.1X5A Adverse effect of antineoplastic and immunosuppressive drugs, initial encounter
CPT/HCPCS: 36415; 71045; 80048; 80053; 81001; 83605; 83615; 84484; 85025; 85610; 85730; 87040; 87086; 87635; 93005; 99284; J2185; J7030; A4216; U0003; U0005

== ENCOUNTER 2022-07-07 18:30 | Emergency (ER) | payer OTHER, SELFPAY ==
[2022-07-07 18:30] VITALS: BP 156/102; PULSE 99; RESP 15; TEMP 39.1; O2SAT 99; BMI 25.8
--- NOTE | 2022-07-07 18:56 | EKG12_ITS ---
Test Reason : DYSRHYTHMIA Blood Pressure : / mmHG Vent. Rate : 085 BPM Atrial Rate : 085 BPM P-R Int : 152 ms QRS Dur : 092 ms QT Int : 334 ms P-R-T Axes : 041 -18 -17 degrees QTc Int : 397 ms Normal sinus rhythm Normal ECG Confirmed by LION ALLEN, REHANA ([id number]), science editor SHAMAR AGUILERA ([id number]) on 07/09/2022 8:53:26 AM Referred By: MANSI Confirmed By:REHANA SEYMOUR MD
--- NOTE | 2022-07-07 19:05 | EDS_ITS ---
HPI History of Present Illness Chief Complaint: Fever Narrative Narrative: 51-year-old male presenting with fever. He is concerned for neutropenic fever as he had this in the past. Has a history of CLL. He is on venetoclax. States that he did have a mild cough earlier today but this was when he was doing [employer]. He does not have any chest pain. He does not feel short of breath. He does not have any nausea or vomiting. He states that he has been feeling a little bit lightheaded recently but not vertiginous in nature. Fever today on arrival is 102.4 and he states this is the highest fever he has had. He does not have any chest pain. He denies abdominal pain, nausea, vomiting, diarrhea. He does have a area of erythema on the right medial thigh which he is concerned about. This is new today. He does not remember any injury. [facility] Medical History CLL (chronic lymphocytic leukemia) HTN (hypertension) Home Medications metoprolol succinate 100 mg tablet,extended release 24 hr 50 mg PO DAILY blood pressure 02/02/20 [History Last Taken 06/05/21] doxazosin 4 mg tablet,extended release 24 hr 4 mg PO DAILY blood pressure 06/06/21 [History Last Taken 06/05/21] folic acid 1 mg tablet 1 mg PO DAILY Check with primary doctor 02/12/22 [History Last Taken Unknown] acyclovir 400 mg tablet 400 mg PO DAILY Check with primary doctor 06/02/22 [History Last Taken Unknown] allopurinol 300 mg tablet 300 mg PO BID Check with primary doctor 06/02/22 [History Last Taken Unknown] levofloxacin 750 mg tablet 750 mg PO DAILY #7 tabs 06/03/22 [Rx Last Taken Unknown] cephalexin 500 mg capsule 500 mg PO Q6 #40 caps 07/07/22 [Rx Last Taken Unknown] Allergy/AdvReac Type Severity Reaction Status Date / Time No Known Allergies Allergy Verified 07/07/22 18:30 Family History Other CLL (chronic lymphocytic leukemia) Surgical History History of arthroscopic knee surgery History of repair of ACL Social History Smoking Status: Never smoker alcohol intake: current alcohol intake frequency: a few times a month ROS ROS ED Constitutional Constitutional ED: Reports chills and fever(s) Eyes Eyes: Denies diplopia ENT ENT ED: Denies rhinorrhea or sore throat Cardiovascular Cardiovascular: Denies chest pain or palpitations Respiratory/Chest Respiratory/Chest: Reports cough; Denies dyspnea Gastrointestinal Gastrointestinal: Denies abdominal pain, nausea or vomiting Genitourinary Genitourinary ED: Denies dysuria or hematuria Musculoskeletal Musculoskeletal: Denies arthralgias or back pain Integumentary Denies abscess Neurologic Neurologic: Denies headache(s) or paresthesias Psychiatric Psychiatric: Denies anxiety or depression EXAM Physical Exam Const Vital Signs: 07/07/22 18:30 07/07/22 19:03 07/07/22 20:00 Temperature 102.4 F H 99.6 F H Temperature Source Temporal Oral Pulse Rate 99 73 Respiratory Rate 15 15 Blood Pressure 156/102 H 131/75 H Blood Pressure Mean 120 93 Pulse Ox 99 96 Oxygen Delivery Method Room Air Room Air Room Air 07/07/22 21:00 Temperature Temperature Source Pulse Rate 78 Respiratory Rate 22 H Blood Pressure 120/66 Blood Pressure Mean 84 Pulse Ox 96 Oxygen Delivery Method Room Air Positive well nourished General Appearance ED: NAD HEENT Reports moist mucous membranes Eyes PERRL and EOMs intact bilaterally Chest Wall inspection of chest normal Resp normal respiratory effort and clear to auscultation bilaterally Auscultation: rales and rhonchi Cardio regular rate and regular rhythm GI normal to inspection, nondistended, normoactive bowel sounds Back/Spine no CVA tenderness Neuro oriented x3 and CN's II-XII intact bilaterally Sensorium / Orientation: alert Psych mental status grossly normal Skin Skin Narrative: 4 cm circular area on the right medial thigh with a punctate area of darker erythema centrally. There is increased warmth here. There is no fluctuance. No lymphangitic streaking. It is tender palpation MDM MDM MDM Narrative Medical decision making narrative: Patient presenting with fever. He has concern for neutropenic fever as has had this in the past. Sepsis work-up was started. Spoke with Dr. Zurita and discussed within the patient has a cellulitis on the right thigh. He recommended doing vancomycin and Zosyn. Obtain blood work and his white blood cell count is 1.7, hemoglobin monitor stable, platelets are normal. He does not appear to be neutropenic. Coagulation studies are normal. Lactic acid within normal limits. Renal function electrolytes within normal limits. LFTs are normal. High- sensitivity troponin is 6. EKG on my interpretation is normal sinus rhythm with ventricular rate of 80 bpm without sign of ischemic change or dysrhythmia. Chen st x-ray on my interpretation shows no acute cardiopulmonary process and the radiologist represents and agrees. Urinalysis is negative. COVID testing, influenza, RSV all negative. There was a viral respiratory panel that was sent. I spoke with Dr. Zurita again and discussed the blood work and he states that since he is not neutropenic he does not need to stay. After discussion he recommended Keflex which we will prescribe for the patient 4 times a day. He was already given vancomycin and Zosyn here in the ED. Clinically he feels better. He is currently eating dinner and his fevers resolved. I did primary substance abuse counselor him that it is okay to treat his fevers after speaking with Dr. Zurita. Impression: 1. Febrile illness 2. Cellulitis 3. History of neutropenic fever Lab Data Attestation: I reviewed the patient's lab results. Labs: Laboratory Results - last 24 hr 07/07/22 07/07/22 07/07/22 18:57 18:57 18:57 WBC 1.7 L RBC 5.25 Hgb 14.6 Hct 43.2 MCV 82.3 MCH 27.8 MCHC 33.8 RDW Std Deviation 37.3 RDW Coeff of Aleksandar 12.5 Plt Count 288 MPV 9.4 Immature Gran % (Auto) 0.600 Neut % (Auto) 1.1 L Lymph % (Auto) 54.1 H Pepin % (Auto) 40.7 H Eos % (Auto) 0.0 Baso % (Auto) 3.5 H Absolute Neuts (auto) 0.0 L Absolute Lymphs (auto) 0.93 Nucleated RBC % 0 Differential Comment SEE COMMENT Platelet Estimate ADEQUATE RBC Morphology N CHROM Anisocytosis RARE PT 13.9 INR 1.1 APTT 30.7 Sodium 134 L Potassium 3.8 Chloride 99 Carbon Dioxide 30.0 Anion Gap 5 BUN 16 Creatinine 1.10 Estim Creat Clear Calc 76.00 Est GFR (MDRD) Af Amer 90 Est GFR (MDRD) Non-Af 75 BUN/Creatinine Ratio 14.5 Glucose 126 H Lactic Acid Calcium 9.1 Total Bilirubin 0.50 AST 22 ALT 41 Alkaline Phosphatase 100 Troponin I High Sens 6 Total Protein 7.4 Albumin 3.8 Globulin 3.6 Albumin/Globulin Ratio 1.1 Urine Color Urine Clarity Urine pH Ur Specific Sh[place] Urine Protein Urine Glucose (UA) Urine Ketones Urine Occult Blood Urine Nitrite Urine Bilirubin Urine Urobilinogen Ur Leukocyte Esterase Urine RBC Urine WBC Ur Squamous Epith Cells Urine Bacteria Urine Mucus 07/07/22 07/07/22 18:57 20:37 WBC RBC Hgb Hct MCV MCH MCHC RDW Std Deviation RDW Coeff of Aleksandar Plt Count MPV Immature Gran % (Auto) Neut % (Auto) Lymph % (Auto) Pepin % (Auto) Eos % (Auto) Baso % (Auto) Absolute Neuts (auto) Absolute Lymphs (auto) Nucleated RBC % Differential Comment Platelet Estimate RBC Morphology Anisocytosis PT INR APTT Sodium Potassium Chloride Carbon Dioxide Anion Gap BUN Creatinine Estim Creat Clear Calc Est GFR (MDRD) Af Amer Est GFR (MDRD) Non-Af BUN/Creatinine Ratio Glucose Lactic Acid 1.5 Calcium Total Bilirubin AST ALT Alkaline Phosphatase Troponin I High Sens Total Protein Albumin Globulin Albumin/Globulin Ratio Urine Color Yellow Urine Clarity Clear Urine pH 7.0 Ur Specific Shannock 1.010 Urine Protein 15 H Urine Glucose (UA) Normal Urine Ketones Negative Urine Occult Blood Negative Urine Nitrite Negative Urine Bilirubin Negative Urine Urobilinogen 1 H Ur Leukocyte Esterase Negative Urine RBC 0 SEEN Urine WBC 0 SEEN Ur Squamous Epith Cells 0 SEEN Urine Bacteria 0 SEEN Urine Mucus 0 SEEN Radiography Diagnostic Testing: Clinical Impression(s) from Imaging Studies Chest X-Ray 07/07/22 19:30 IMPRESSION: No acute abnormal cardiopulmonary finding. Electronically Signed: Roosevelt Carson MD at 19:44 EST , Discharge Plan Triage Chief Complaint: Fever ED Provider: Adalid Deras Dx/Rx/DC Orders Instructions: ED Cellulitis Prescriptions: New cephalexin 500 mg capsule 500 mg PO Q6 Qty: 40 0RF No Action folic acid 1 mg tablet 1 mg PO DAILY metoprolol succinate 100 MG tablet extended release 24 hr 50 mg PO DAILY doxazosin 4 mg Tablet Extended Release 24hr 4 mg PO DAILY acyclovir 400 mg tablet 400 mg PO DAILY Label Comments: TAKE 1 TABLET BY MOUTH TWICE A DAY allopurinol 300 mg tablet 300 mg PO BID Label Comments: TAKE 1 TABLET BY MOUTH ONCE DAILY levofloxacin 750 mg tablet 750 mg PO DAILY Qty: 7 0RF Primary Care Provider: Care Physician,No Primary Referrals: Corrie Ray [employer], [employer] [Non-Staff] - Disposition Disposition: Home, Self Care
[2022-07-07 19:15] LABS: Absolute Lymphocyte Count 0.93 X10^3/uL (0.83-4.51); Basophil# 0.06 X10^3/uL; Basophil% 3.5 % (0-1); Hematocrit 43.2 % (40-54); Hemoglobin 14.6 g/dL (13.0-16.5); Lymphocyte # 0.93 X10^3/ul (0.83-4.51); Lymphocyte % 54.1 % (19-41); Mean Corp Hgb Conc 33.8 g/dL (32-36); Mean Corpuscular Hgb 27.8 pg (27.0-32.0); Mean Corpuscular Volume 82.3 fL (80-94); Mean Platelet Vol. 9.4 fl (6.2-12.0); Monocyte% 40.7 % (0-10); NRBC Flagged by Analyzer 0 % (0-5); Neutrophil # 0.02 X10^3/uL (2.7-7.7); Neutrophil % 1.1 % (47-70); POSITIVE DIFFERENTIAL YES; Platelet Count 288 K/mm3 (150-450); RBC Distribution Width CV 12.5 % (11.6-14.6); RBC Distribution Width SD 37.3 fl (35.1-43.9); Red Blood Count 5.25 M/mm3 (4.6-6.2); White Blood Count 1.7 K/mm3 (4.4-11.0)
[2022-07-07] MEDS: 0.9% Normal Saline 1,000 ML 999 ML IV (19:17)
[2022-07-07] MEDS: Acetaminophen 500 MG Tablet 1000 MG PO (19:24)
[2022-07-07 19:27] LABS: International Normalized Ratio 1.1; Partial Thromboplast Time 30.7 Seconds (24.1-36.2); Prothrombin Time (Protime)PT. 13.9 SECONDS (11.7-14.9)
[2022-07-07 19:30] LABS: Differential Indicated SCAN CRITERIA MET
--- NOTE | 2022-07-07 19:30 | RAD_ITS ---
STUDY: X-RAY CHEST REASON FOR EXAM: Male, 51 years old. The liver TECHNIQUE: Portable, upright, AP chest x-ray COMPARISON: 06/02/2022 FINDINGS: The lungs are clear and expanded. There is no demonstrated pleural abnormality. Normal size heart. Normal mediastinum and milton. Normal visualized pulmonary arteries. Normal visualized aortic arch and descending thoracic aorta. There is no demonstrated abnormality of the visualized soft tissue structures of the upper abdomen. RAD/Chest 1 View (Portable) IMPRESSION: No acute abnormal cardiopulmonary finding. Electronically Signed: Roosevelt Carson MD at 19:44 EST ,
[2022-07-07 19:33] LABS: ALB/GLOB Ratio 1.1 RATIO (0.9-2.4); AST(SGOT) 22 U/L (15-37); Alanine Aminotransfer ALT/SGPT 41 U/L (16-61); Albumin, Serum 3.8 g/dL (3.2-5.0); Alkaline Phosphatase 100 U/L (45-117); Anion Gap 5 (5-15); BUN 16 mg/dL (7-18); BUN/Creat Ratio 14.5 RATIO (10-20); Calcium,Total 9.1 mg/dL (8.5-10.1); Chloride 99 mmol/L (98-107); EST Glomerular Filtration Rate 75 mL/min (>60); Est Glom Filt Rate - Afr Amer 90 mL/min (>60); Globulin 3.6 g/dL (2.2-4.2); Glucose 126 mg/dL (74-106); Potassium 3.8 mmol/L (3.5-5.1); Protein, Total 7.4 g/dL (6.4-8.2); Sodium Level 134 mmol/L (136-145); Troponin-I HS 6 pg/mL (3.0-78.0)
[2022-07-07 19:55] LABS: Lactic Acid 1.5 mmol/L (0.4-1.9)
[2022-07-07 20:00] VITALS: BP 131/75; PULSE 73; RESP 15; TEMP 37.6; O2SAT 96
[2022-07-07 20:18] LABS: Anisocytosis RARE; Platelet Estimate ADEQUATE (ADEQ); Red Cell Morphology N CHROM NORMAL (NORM C&C)
[2022-07-07 20:44] LABS: Bacteria 0 SEEN /hpf (None Seen); Mucous, Urine 0 SEEN /hpf (<or=2+); Red Blood Cells-Urine 0 SEEN /hpf (0-5); Squamous Epithelial Cells - UA 0 SEEN /hpf (0-5); White Blood Cells 0 SEEN /hpf (0-5)
[2022-07-07 20:48] LABS: Color, Urine Yellow (Yellow); Glucose, Dipstick Normal (Normal); Ketone-Dipstick Negative (Negative); Leukocyte Esterase-Dipstick Negative /ul (Negative); Nitrite-Dipstick Negative (Negative); Occult Blood-Urine Negative /ul (Negative); Protein-Dipstick 15 mg/dl (Negative); Urine Bilirubin Dipstick Negative (Negative); Urine Clarity Clear (Clear); Urine Urobilinogen 1 mg/dl (Normal)
[2022-07-07 21:00] VITALS: BP 120/66; PULSE 78; RESP 22; O2SAT 96
[2022-07-07 21:52] VITALS: BP 120/66; PULSE 76; RESP 18; TEMP 37.1; O2SAT 97
[2022-07-07 22:00] VITALS: BP 116/65; PULSE 75; RESP 23; O2SAT 96
== END 2022-07-07 22:31 | disposition home or self-care (01) ==
PROVIDERS: Emergency Provider Student in an Organized Health Care Education/Training Program; Visit Provider Student in an Organized Health Care Education/Training Program
DX: L03.115 Cellulitis of right lower limb (principal); C91.10 Chronic lymphocytic leukemia of B-cell type not having achieved remission; I10 Essential (primary) hypertension; Z79.899 Other long term (current) drug therapy; Z20.822 Contact with and (suspected) exposure to COVID-19
CPT/HCPCS: 71045; 80053; 81001; 83605; 84484; 85025; 85610; 85730; 87040; 87086; 87804; 87807; 87811; 93005; 96365; 96367; 99285; J7030; J7050; A4216